=== PATIENT | female | born 1995 | race Caucasian/White ===

== ENCOUNTER 2020-07-11 23:43 | Emergency (ER) | payer MEDICAID ==
--- OUTSIDE RECORDS SUMMARY | 2020-07-11 23:45 | XMS REPORT | Summary of Care ---
:1995 Author Organization [facility] Address [address] [place] [id number] Care Team Providers Name Role Phone Pcp, Patient Does Not Have A Primary Care Provider +1-000-00 0-0000 Reason for Visit Reason Comments LAB Encounter Details Date Type Department Care Team Description 06/05/2020 Building Supplies Salesperson Retail Visit [facility] Lety Monson MD [address] [place] [address] [address] [place] [address] High-risk Professional Office 2, Adc Lab in third trimester Building Phlebotomy Lab Professional Office Building [address] [place] [address] , [address] [place] [address] Allergies No Known Allergiesdocumented as of this encounter (statuses as of 06/05/2020) Medications Medication Sig Dispensed Refills Start Date End Date Status acetaminophen (TYLENOL Take by mouth. 0 Active ORAL) aspirin 81 mg chewable Take 81 mg by 0 Active tablet mouth daily. vit Take by mouth. 0 A ctive calc,iron,folic ( VITAMIN ORAL) penicillin v potassium Take 500 mg by 0 Active 500 mg tablet mouth. documented as of this encounter (statuses as of 06/05/2020) Active Problems Problem Noted Date Obesity (BMI 30-39.9) 06/05/2020 Excessive weight gain during in third trimes ter 06/05/2020 High-risk in third trimester 06/05/2020 History of pre-eclampsia 06/05/2020 Dizziness and giddiness 06/05/2020 Estimated Date of Delivery Comments Yes 08/06/2020 Based on last menstr ual period of 10/31/2019 (Exact Date) documented as of this encounter (statuses as of 06/05/2020) Immunizations Name Administration Dates Next Due TDAP 06/05/2020 documented as of this encounter Social History Tobacco Use Types Packs/Day Years Used Date Never Smoker Smokeless Tobacco: Never Used Alcohol Use Drinks/Week oz/Week Comments Never 0 Standard drinks or equivalent Alcohol Habits Answer Date Recorded How often do you have a drink containing alcohol? Never 06/05/2020 How many drinks containing alcohol do you have on a typical Not asked 06/05/2020 day when you are drinking? How often do you have six or more drinks on one occasion? Ne rabia 06/05/2020 Estimated Date of Delivery Comments Yes 08/06/2020 Based on last menstr ual period of 10/31/2019 (Exact Date) Sex Assigned at Date Recorded Not on file COVID-19 Exposure Response Date Recorded In the last month, have you been in contact with No / Unsure 06/05/2020 2:24 PM MANAGER OF QUALITY someone who was confirmed or suspected to have Coronavirus / COVID-19? documented as of this encounter Last Filed Vital Signs Not on filedocumented in this encounter Nursing Notes Adela Quiroz - 06/05/2020 4:00 PM CST Venipuncture collection performed by clean technique on the right anticubitus. Total of 1 attempts were made. Slight pressure and a bandage/dressing were applied to the site(s). The patient experiencedno complications. The following specimens were processed according to instructions and sent to [facility] laboratories per lab order on 06/05/20: LT BLUE SST 1 RED 1 LAV 2 PPT DK GREEN (LiHep) DK GREEN (SodH) REYNOLDS DK BLUE (K2) DK BLUE (S) ACD Blood Culture NIPT/NTD Patient stated she would come in another day to do the 1 hour GTT. documented in this encounter Plan of Treatment Health Maintenance Due Date Last Done Comments VARICELLA VACCINES (1 of 2 - 1997 2-dose childhood series) HPV VACCINES (1 - 2-dose series) 2007 Depression Screening 2008 CHLAMYDIA SCREENING 2012 DTaP,Tdap,and Td Vaccines (1 - 2015 Tdap) PAP SMEAR 2017 INFLUENZA VACCINE (#1) 2020 PNEUMOCOCCAL 0-64 YEARS COMBINED Aged Out No longer eligible based on SERIES patient's age to complete this topic documented as of this encounter Results Not on filedocumented in this encounter Visit Diagnoses Diagnosis High-risk in third trimester documented in this encounter Insurance Payer Benefit Plan / Subscriber ID Effective Phone Address T ype Group Dates DUC XAVIER [id number] 2020-Pres P O BOX Medic aid [place] [id number] MANAGED MEDICAID [place], [place] documented as of this encounter
--- OUTSIDE RECORDS SUMMARY | 2020-07-11 23:45 | XMS REPORT | Summary of Care ---
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 0 Active ORAL) aspirin 81 mg chewable Take 81 mg by 0 Active tablet mouth daily. vit Take by mouth. 0 A ctive calc,iron,folic ( VITAMIN ORAL) penicillin v potassium Take 500 mg by 0 Active 500 mg tablet mouth. documented as of this encounter (statuses as of 06/12/2020) Active Problems Problem Noted Date Obesity (BMI 30-39.9) 06/05/2020 Excessive weight gain during in third trimes ter 06/05/2020 High-risk in third trimester 06/05/2020 History of pre-eclampsia 06/05/2020 Dizziness and giddiness 06/05/2020 Estimated Date of Delivery Comments Yes 08/06/2020 Based on last menstr ual period of 10/31/2019 (Exact Date) documented as of this encounter (statuses as of 06/12/2020) Immunizations Name Administration Dates Next Due Influenza Virus Vaccine Quad .5 mL IM 6+ MO 06/05/2020 Rho (d) Immune Globulin 06/05/2020 TDAP 06/05/2020 documented as of this encounter [...] been in contact with No / Unsure 06/12/2020 9:08 AM RELIGION DEPARTMENT CHAIR someone who was confirmed or suspected to have Coronavirus / COVID-19? documented as of this encounter Last Filed Vital Signs Not on filedocumented in this encounter Nursing Notes Adela Quiroz - 06/12/2020 9:15 AM CST Venipuncture collection performed by clean technique on the right anticubitus. Total of 1 attempts were made. Slight pressure and a bandage/dressing were applied to the site(s). The patient experiencedno complications. The following specimens were processed according to instructions and sent to [facility] laboratories per lab order on 06/12/20: LT BLUE SST 1 RED LAV PPT DK GREEN (LiHep) DK GREEN (SodH) REYNOLDS DK BLUE (K2) DK BLUE (S) ACD Blood Culture NIPT/NTD documented in this encounter Plan of Treatment Date Type Specialty Care Team Description 06/19/2020 Routine Obstetrics & Monson, Lety Cai MD Visit Gynecology [address] [place] [address] [address]. [place], [place] [address] Health Maintenance Due Date Last Done Comments VARICELLA VACCINES (1 of 2 - 1997 2-dose childhood series) HPV VACCINES (1 - 2-dose series) 2007 Depression Screening 2008 CHLAMYDIA SCREENING 2012 PAP SMEAR 2017 DTaP,Tdap,and Td Vaccines (2 - Td) 06/05/2030 06/05/2020 INFLUENZA VACCINE Completed 06/05/2020 PNEUMOCOCCAL 0-64 YEARS COMBINED Aged Out No longer eligible based on SERIES patient's age to complete this topic documented as of this encounter Results Not on filedocumented in this encounter Visit Diagnoses Diagnosis High-risk in third trimester documented in this encounter Insurance Payer Benefit Plan / Subscriber ID Effective Phone Address T ype Group Dates DUC XAVIER [id number] 2020-Pres P [address] BOX Medic aid [place]ALTHCARE [place] [id number] MANAGED MED[place]ID [place], [place] documented as of this encounter
--- OUTSIDE RECORDS SUMMARY | 2020-07-11 23:45 | XMS REPORT | Summary of Care ---
:1995 Author Organization [facility] Address [address] [place] [address] Care Team Providers Name Role Phone Pcp, Patient Does Not Have A Primary Care Provider +1-000-00 0-0000 Reason for Visit Reason Comments Initial Visit Transfer Encounter Details Date Type Department Care Team Description 06/05/2020 Initial [facility] Lety Monson am, MD High-risk in third trimester ( Primary Dx); Visit Healthcare- [address] [place] [address] 31 weeks g estation of ; Margarito SOOD Excessive weight gain during i n third trimester; [address] [place] [address] [address] Obesity (BMI 30-39.9); Drive, [address] [place], [place] History of pre-eclampsia; [place] [address] Dizziness and giddiness; [address] Needs flu shot; [phone] Need for Tdap v accination (Fax) Allergies No Known Allergiesdocumented as of this encounter (statuses as of 06/05/2020) Medications Medication Sig Dispensed Refills Start Date End Date Status acetaminophen Take by 0 Active (TYLENOL ORAL) mouth. aspirin 81 mg Take 81 mg 0 Activ e chewable tablet by mouth daily. vit Take by 0 Active calc,iron,folic mouth. ( VITAMIN ORAL) penicillin v Take 500 mg 0 Activ e potassium 500 mg by mouth. tablet naproxen 500 mg Take 1 60 tablet 1 10/10/2016 Dis continued tabletIndications: tablet by 0 ( ) Carotidynia, mouth 2 Menstrual cramps (two) times daily with meals. Hospital, Clinic, or Other Ordered Dose Route Frequency Start Date End Date Status Facility Administered Medication rho(D) immune globulin 300 mcg IM ONCE 06/05/20202019 Ended (RHOGAM) syringe 300 mcg documented as of this encounter (statuses as [...] 06/05/2020) Immunizations Name Administration Dates Next Due Influenza [...] with No / Unsure 06/05/2020 2:24 PM GUEST HOUSE MANAGER someone who was confirmed or suspected to have Coronavirus / COVID-19? documented as of this encounter Last Filed Vital Signs Vital Sign Reading Time Taken Comments Blood Pressure 117/72 06/05/2020 2:55 PM GUEST HOUSE MANAGER Pulse 91 06/05/2020 2:48 PM GUEST HOUSE MANAGER Temperature 36.7 C (98.1 F) 06/05/2020 2:48 PM GUEST HOUSE MANAGER Respiratory Rate 18 06/05/2020 2:48 PM GUEST HOUSE MANAGER Oxygen Saturation - - Inhaled Oxygen Concentration - - Weight 91.2 kg (201 lb) 06/05/2020 2:48 PM GUEST HOUSE MANAGER Height 160 cm (5' 3") 06/05/2020 2:48 PM GUEST HOUSE MANAGER Body Mass Index 35.61 06/05/2020 2:48 PM GUEST HOUSE MANAGER documented in this encounter Progress Notes Lety Monson MD - 06/05/2020 2:30 PM CST Chief complaint: Chief Complaint Patient presents with Initial Visit Transfer HPI [place] Nieves is a 25 year old female @ 31w1d by Patient's last menstrual period was 10/31/2019 (exact date). YANIV of 08/06/2020. Transfer care from [place] Denies vaginal bleeding, contractions, LOF, dysuria, or PIH symptoms. + active FM. Histories OB History Para Term AB Living 2 1 1 1 SAB TAB Ectopic Multiple Live Births 1 # Outcome Date GA Lbr Martínez/2nd Weight Sex Delivery Anes PTL Lv 2 Current 1 Term 11/02/17 37w0d 7 lb 4 oz (3.289 kg) F NORMAL SPONT CARLOTA Complications: PIH ( induced hypertension) Past Medical History: Diagnosis Date Asthma Family History Problem Relation Age of Onset Anxiety Mother Depression Mother Mental illness Father Lung Cancer Paternal Grandmother No family status information on file. History reviewed. No pertinent surgical history. Social History Socioeconomic History Marital status: Spouse name: Not on file Number of children: Not on file Years of education: Not on file Highest education level: Not on file Occupational History Not on file Social Needs Financial resource strain: Not on file Food insecurity Worry: Not on file Inability: Not on file Transportation needs Medical: Not on file Non-medical: Not on file Tobacco Use Smoking status: Never Smoker Smokeless tobacco: Never Used Substance and Sexual Activity Alcohol use: Never Frequency: Never Binge frequency: Never Drug use: Never Sexual activity: Yes Partners: Male Lifestyle Physical activity Days per week: Not on file Minutes per session: Not on file Stress: Not on file Relationships Social connections Talks on phone: Not on file Gets together: Not on file Attends zoroastrian service: Not on file Active member of club or organization: Not on file Attends meetings of clubs or organizations: Not on file Relationship status: Not on file Intimate partner violence Fear of current or ex partner: Not on file Emotionally abused: Not on file Physically abused: Not on file Forced sexual activity: Not on file Other Topics Concern Not on file Social History Narrative Denies physical and sexual abuse. Social History Substance and Sexual Activity Sexual Activity Yes Partners: Male Genetic Screen Autism / Mental Retardation: No Gabriele Disease: No Congenital Heart Defect: No Cystic Fibrosis: No Down Syndrome: No Familial Dysautonomia: No Hemophilia or other Blood Disorders: No [place] Chorea: No Maternal Metabolic Disorder--specify (eg. Type 1 Diabetes, PKU): No Muscular Dystrophy: No Neural Tube Defect: No Recurrent Loss or a Stillbirth: No Sickle Cell Disease or Trait: No Cristofer Sachs: No Teratological Substances (specify type & strength/dose) since LMP: No Thalassemia: No Other Inherited Genetic or Chromosomal Disorder (specify): No No Significant History of Genetic Disorders: No Significant History of Genetic Disorders Labs No new labs Radiology No new radiology. Allergies [place] has No Known Allergies. Medications [place] has a current medication list which includes the following prescription(s): acetaminophen, aspirin, penicillin v potassium, and vit calc,iron,folic. Review of Systems Constitutional: Negative for chills, fatigue and fever. HENT: Negative for congestion, rhinorrhea, sneezing and sore throat. Eyes: Negative for photophobia and visual disturbance. Respiratory: Negative for cough, chest tightness, shortness of breath and wheezing. Cardiovascular: Positive for leg swelling (1+ edema bilaterally). Negative for chest pain and palpitations. Gastrointestinal: Negative for abdominal distention, abdominal pain, constipation, diarrhea, nausea and vomiting. Genitourinary: Negative for dysuria, urgency, frequency, vaginal bleeding and vaginal discharge. Skin: Negative for rash. Neurological: Positive for dizziness (intermittent ). Negative for syncope and headaches. Hematological: Does not bruise/bleed easily. BP 117/72 (BP Location: Left arm, Patient Position: Sitting, BP CUFF SIZE: Adult Large) | Pulse 91| Temp 36.7 C (98.1 F) (Oral) | Resp 18 | Ht 5' 3" (1.6 m) | Wt 201 lb (91.2 kg) | LMP 10/31/2019 (Exact Date) | BMI 35.61 kg/m Pregravid BMI: 31.72 Physical Exam Vitals reviewed. Constitutional: She is oriented to person, place, and time. Her body habitus is obese. Cardiovascular: Regular rate and rhythm. Pulmonary/Chest: Normal inspiratory effort. Abdominal: Abdomen is soft. No tenderness present. No hernia palpated or inspected. Neuro/Psychiatric: She has a normal mood and affect. She is oriented to person, place, and time. Skin: Skin normal. No rash present. Assessment/Plan See OB Summary Return to clinic in 2 weeks. Discussed treatment options. Medications as ordered. Reviewed patient instructions and provided printed copy. Activity restrictions: As tolerated at 31w1d This visit did not involve counseling and coordination that comprised more than 50% of the visit time. Lety Monson MD 06/05/2020 3:46 PM documented in this encounter Miscellaneous Notes OB Summary Note - Lester Clinton - 06/05/2020 2:30 PM CST Age: [age] year old GA: 31w1d Doing well Received Flu and TDAP today Transfer care from [place] Records reviewed: 02/06/2020: Rubella immune; B negative with antibody negative; serologies negative; Pap neg 02/06/2020 03/05/2020 quad neg Anatomy scan WNL with posterior placenta Hemoglobin electrophoresis WNL Hx of asthma Hx of pre-eclampsia with last -Delivered @ 37 weeks with last due to PIH -On low dose ASA -BP elevated upon arrival, normal on recheck -PIH precautions given Rh negative - have not done 28 wk labs yet. Labs today and RTC for Rhogam today. - Denies hx of vaginal spotting or bleeding Dizziness - a couple of days ago - Intermittent dizziness especially when standing up. Denies syncope. Advise changing positions frequently, use compression stockings if standing for a long period, use cool packs as needed. Advise taking time between changing positions, eating regular and frequent meals, and drinking plenty of water. Denies chest pain, SOB, palpitations. Fall precautions reviewed. Excessive weight gain - TWG 22 lbs. Advise walking at least 30 minutes daily. Sensible healthy diet. -Advised patient to eat bigger meals earlier in the day and stay active and avoid eating late at night Discussed do's and don'ts of , safe foods, safe medications. Reviewed Zika virus precautions. I discussed the call schedule and that I might not be the physician delivering her. Expectationsfor weight gain this include 11-20 pounds. Encouraged to call if have any additional questions or concerns. Discussed about COVID-19/flu precautions. Social distancing, frequent hand washings, wearing face mask, signs/symptoms for testing and to follow CDC recommendations discussed. Discussed with patient that we recommend covid testing to be done ~ one day prior to scheduled induction/ and she can have one HEALTHY support with her during her delivery if she does not haveCOVID. Also discussed that she and support person need to wear mask the entire inpatient stay. Allquestions were answered. Contraception PP: patient is unsure but doesn't desire BTL 28 week labs ordered today RTC in 2 weeks for PN visit Scribe's Attestation I, Lester Clinton , am scribing for, and in the presence of, Lety Monson MD who performed the services described here-in. Lester Clinton, June 05, 2020, 2:34 PM Physician's Attestation I have seen and examined the patient and agreed with the note above Lety Monson MD 06/05/2020 3:45 PM documented in this encounter Plan of Treatment Date Type Specialty Care Team Description 06/19/2020 Routine Obstetrics & Lety Monson MD Visit Gynecology [address] [place] [address] [address] [place] [address] [phone] Name Type Priority Associated Diagnoses Order S chedule ADC OR MARU ONLY - LAB Routine High-risk in Expected: 06/05/2020, RPR third trimester Expires: CBC WITH DIFF LAB Routine High-risk in Expe cted: 06/05/2020, third trimester Expires: GLUCOSE 1 HOUR POST LAB Routine High-risk i n Expected: 06/05/2020, PRANDIAL third trimester Expires: HIV 1/2 AG-AB WITH LAB Routine High-risk in Expected: 06/05/2020, REFLEX third trimester Expires: WORKUP, BLOOD LAB Routine High-risk pregnanc y in Expected: 06/05/2020, BANK third trimester Expires: Health Maintenance Due Date Last Done Comments VARICELLA VACCINES ( - 1997 2-dose childhood series) HPV VACCINES (1 - 2-dose series) 2007 Depression Screening 2008 CHLAMYDIA SCREENING 2012 DTaP,Tdap,and Td Vaccines (1 - 2015 Tdap) PAP SMEAR 2017 INFLUENZA VACCINE (#1) 2020 PNEUMOCOCCAL 0-64 YEARS COMBINED Aged Out No longer eligible based on SERIES patient's age to complete this topic documented as of this encounter Procedures Procedure Name Priority Date/Time Associated Diagnosis Comme nts FLU VACC Routine 06/05/2020 3:45 High-risk ([id number]), 6+ PM GUEST HOUSE MANAGER in third trimest er MONTHS, IM, QUAD Needs flu shot TDAP VACCINE, >11 Routine 06/05/2020 3:45 High-risk YRS, IM PM GUEST HOUSE MANAGER in third trimest er Need for Tdap vaccination POCT URINALYSIS W/O Routine 06/05/2020 High-risk R esults for this SPECIFIC GRAVITY in third trimes ter procedure are in 31 weeks gestation the resul ts of section. documented in this encounter Results POCT URINALYSIS W/O SPECIFIC GRAVITY (06/05/2020) Pathologist Sig nature POCT PH U N/A 5 - 8 mg/dl POCT U LEUK EST N/A Negative - Negative POCT U NIT N/A Negative - Negative POCT U PROT Negative Negative - Negative POCT U GLU Trace Negative - Negative POCT U KETONE N/A Negative - Negative POCT U BLD N/A Negative - Negative Specimen Urine - URINE, CLEAN CATCH documented in this encounter Visit Diagnoses Diagnosis High-risk in third trimester - Primary 31 weeks gestation of state, incidental Excessive weight gain during i n third trimester Obesity (BMI 30-39.9) Obesity, unspecified History of pre-eclampsia Dizziness and giddiness Needs flu shot Need for prophylactic vaccination and in oculation against influenza Need for Tdap vaccination Need for prophylactic vaccination with c ombined [id number] (DTP) vaccine documented in this encounter Administered Medications Medication Order MAR Action Action Date Dose Rate Site rho(D) immune globulin Given 06/05/2020 3:55 PM 300 mcg Right Upper Quad. (RHOGAM) syringe 300 GUEST HOUSE MANAGER Glut eus mcg 300 mcg, Intramuscular, ONCE, 1 dose, Wed06/05/20 at 1700, Routine documented in this encounter Insurance Payer Benefit Plan / Subscriber ID Effective Phone Address T ype Group Dates DUC XAVIER [id number] 2020-Pres P O BOX Medic aid [place]CARE [place] [id number] MANAGED MEDICAID [place], [place] documented as of this encounter
--- OUTSIDE RECORDS SUMMARY | 2020-07-11 23:45 | XMS REPORT | Summary of Care ---
:1995 Author Organization [facility] Address [address] [place] [address] Care Team Providers Name Role Phone Pcp, Patient Does Not Have A Primary Care Provider +1-000-00 0-0000 Encounter Details Date Type Department Care Team Description 06/05/2020 Orders Only [facility] Doctor Unassigned, No [address] [facility] [place] [address] [address] [place] [address] Allergies No Known Allergiesdocumented as of this encounter (statuses as of 06/05/2020) Medications Medication Sig Dispensed Refills Start Date End Date Status naproxen 500 mg Take 1 tablet by 60 tablet 1 10/10/2016 Active tabletIndications: mouth 2 (two) Carotidynia, Menstrual times daily with cramps meals. documented as of this encounter (statuses as of 06/05/2020) Active Problems No known active problemsdocumented as of this encounter (statuses as of 06/05/2020) Social History Tobacco Use Types Packs/Day Years Used Date Never Smoker Alcohol Use Drinks/Week oz/Week Comments Not Asked 0 Standard drinks or equivalent 0.0 Sex Assigned at Date Recorded Not on file documented as of this encounter Last Filed Vital Signs Not on filedocumented in this encounter Plan of Treatment Date Type Specialty Care Team Description 06/05/2020 Initial Obstetrics & Monson, Lety Cai MD Visit Gynecology [address] [place] [address] [address] [address] [phone] Health Maintenance Due Date Last Done Comments [...] Name Priority Date/Time Associated Diagnosis Comme nts ASSIGNMENT OF BENEFITS Routine 06/05/2020 2:20 PM HAND LEATHER TRIMMER documented in this encounter Results Not on filedocumented in this encounter Insurance Payer Benefit Plan / Subscriber ID Effective Phone Address T e Group Dates XAVIER XAVIER [id number] 2020-Pres P O BOX Medic aid HEALTHCARE [place]CARE [place] [id number] MANAGED MEDICAID [place], [place] [facility] [id number] 2016-Pre T ancelmo sent documented as of this encounter
--- OUTSIDE RECORDS SUMMARY | 2020-07-11 23:45 | XMS REPORT | Summary of Care ---
:1995 Author Organization [facility] - Health Address [address] [place] [address] Care Team Providers Name Role Phone Pcp, Patient Does Not Have A Primary Care Provider +[id number] 0-0000 Encounter Details Date Type Department Care Team Description 06/17/2020 Orders Only [facility] Doctor Unassigned, No [address] [facility] [place] [address] [address] [place] [address] Allergies No Known Allergiesdocumented as of this encounter (statuses as of 06/17/2020) Medications Medication Sig Dispensed Refills Start Date End Date Status acetaminophen (TYLENOL Take by mouth. 0 Active ORAL) aspirin 81 mg chewable Take 81 mg by 0 Active tablet mouth daily. vit Take by mouth. 0 A ctive calc,iron,folic ( VITAMIN ORAL) penicillin v potassium Take 500 mg by 0 Active 500 mg tablet mouth. documented as of this encounter (statuses as of 06/17/2020) Active Problems Problem Noted Date Obesity (BMI 30-39.9) 06/05/2020 Excessive weight gain during in third trimes ter 06/05/2020 High-risk in third trimester 06/05/2020 History of pre-eclampsia 06/05/2020 Dizziness and giddiness 06/05/2020 Estimated Date of Delivery Comments Yes 08/06/2020 Based on last menstr ual period of 10/31/2019 (Exact Date) documented as of this encounter (statuses as of 06/17/2020) Immunizations Name Administration Dates Next Due Influenza [...] with No / Unsure 06/12/2020 9:08 AM CHASSIS WIRER someone who was confirmed or suspected to have Coronavirus / COVID-19? documented as of this encounter Last Filed Vital Signs Not on filedocumented in this encounter Plan of Treatment Date Type Specialty Care Team Description 06/19/2020 Routine Obstetrics & Monson, Lety Cai MD Visit Gynecology [address] [place] [address] DR. Garcia [place] [id number] [phone] Health Maintenance Due Date Last Done Comments [...] Name Priority Date/Time Associated Diagnosis Comme nts EXTERNAL PROVIDER Routine 06/17/2020 12:01 AM CHASSIS WIRER RECORDS documented in this encounter Results Not on filedocumented in this encounter Insurance Payer Benefit Plan / Subscriber ID Effective Phone Address T ype Group Dates DUC XAVIER [id number] 2020-Pres [address] Medic aid [employer] - [place]ARE [place] [id number] MANAGED MEDICAID [place], [place] [facility] [id number] 2016-Pre T ricare sent documented as of this encounter
--- OUTSIDE RECORDS SUMMARY | 2020-07-11 23:46 | XMS REPORT | Summary of Care ---
:1995 Author Organization [facility] - Health Address [address] [place] [address] Care Team Providers Name Role Phone Pcp, Patient Does Not Have A Primary Care Provider +[phone] 0-0000 Encounter Details Date Type Department Care Team Description 07/03/2020 Orders Only [facility] Doctor Unassigned, No [address] [facility] [place] [address] [address] [place] [address] Allergies No Known Allergiesdocumented as of this encounter (statuses as of 07/08/2020) Medications Medication Sig Dispensed Refills Start Date End Date Status acetaminophen (TYLENOL Take by mouth. 0 Active ORAL) aspirin 81 mg chewable Take 81 mg by 0 Active tablet mouth daily. vit Take by mouth. 0 A ctive calc,iron,folic ( VITAMIN ORAL) penicillin v potassium Take 500 mg by 0 Active 500 mg tablet mouth. documented as of this encounter (statuses as of 07/08/2020) Active Problems Problem Noted Date Palpitations 06/19/2020 Obesity (BMI 30-39.9) 06/05/2020 Excessive weight gain during in third trimes ter 06/05/2020 High-risk in third trimester 06/05/2020 History of pre-eclampsia 06/05/2020 Dizziness and giddiness 06/05/2020 Estimated Date of Delivery Comments Yes 08/06/2020 Based on last menstr ual period of 10/31/2019 (Exact Date) documented as of this encounter (statuses as of 07/08/2020) Immunizations Name Administration Dates Next Due Influenza [...] been in contact with No / Unsure 07/03/2020 12:54 PM REGISTERED DENTAL HYGIENIST someone who was confirmed or suspected to have Coronavirus / COVID-19? documented as of this encounter Last Filed Vital Signs Not on filedocumented in this encounter Plan of Treatment Date Type Specialty Care Team Description 07/08/2020 Office Visit Cardiology Anabel Starkey M D [address] [facility] [address] [place], [place] [address] 07/17/2020 Routine Obstetrics & MonsonLety MD Visit Gynecology [address] [place] [address] DRRichar Wilfredo [address] [place], [place] [address] Health Maintenance Due Date Last Done Comments VARICELLA VACCINES (1 of 2 - 1997 2-dose childhood series) HPV VACCINES (1 - 2-dose series) 2007 Depression Screening 2008 PAP SMEAR 2017 CHLAMYDIA SCREENING 07/03/2021 07/03/2020 DTaP,Tdap,and Td Vaccines (2 - Td) 06/05/2030 06/05/2020 INFLUENZA VACCINE Completed 06/05/2020 PNEUMOCOCCAL 0-64 YEARS COMBINED Aged Out No longer eligible based on SERIES patient's age to complete this topic documented as of this encounter Procedures Procedure Name Priority Date/Time Associated Diagnosis Comme nts DSU PRE-OP Routine 07/03/2020 12:01 AM REGISTERED DENTAL HYGIENIST documented in this encounter Results Not on filedocumented in this encounter Insurance Payer Benefit Plan / Subscriber ID Effective Phone Address T [facility] Group Dates DUC XAVIER [id number] 2020-Pres [address] Medic aid [place] [id number] MANAGED MEDICAID [place], [place] documented as of this encounter
--- OUTSIDE RECORDS SUMMARY | 2020-07-11 23:46 | XMS REPORT | Continuity of Care Document ---
:1995 Author Organization [facility] t Address [address] [place] [address] Care Team Providers Name Role Phone Lalito TEIXEIRA Attending Clinician Problems This patient has no known problems. Allergies, Adverse Reactions, Alerts This patient has no known allergies or adverse reactions. Medications This patient has no known medications. Procedures This patient has no known procedures. Encounters Start End Encounter Admission Attending Care Care Encounter Source Date/Time Date/Time Type Type Clinicians Facility Department ID 2020-07-08 2020-07-08 Office PEG Starkey [id number] 13:21:11 13:56:00 Visit Anabel Pimentel [id number] [place] [id number] Cindi [id number] nal 059 Building Results This patient has no known results.
--- OUTSIDE RECORDS SUMMARY | 2020-07-11 23:46 | XMS REPORT | Summary of Care ---
:1995 Author Organization [facility] Address [address] [place] [address] Care Team Providers Name Role Phone Pcp, Patient Does Not Have A Primary Care Provider +[id number] 0-0000 Reason for Referral (Routine) Status Reason Specialty Diagnoses / Referred By Referred To Procedures Contact Contact New Request Cardiology Diagnoses High-risk in third trimester 33 weeks gestation of Palpitations Dizziness and giddiness Lety Monson MD Procedures CONSULT/REFERRAL CARDIOLOGY [address] [place] [address] [facility] [address] [place], [place] [address] Reason for Visit Reason Comments ROUTINE VISIT Encounter Details Date Type Department Care Team Description 06/19/[address] [facility] Women's Lety Monson am, MD High-risk in third trimester ( Primary Dx); Visit Healthcare- [address] [place] [address] 33 weeks g estation of ; [place] Palpitations; [address] [place] [address], [address] [place], [place] [id number] Allergies No Known Allergiesdocumented as of this encounter (statuses as of 06/19/2020) Medications Medication Sig Dispensed Refills Start Date End Date Status acetaminophen (TYLENOL Take by mouth. 0 Active ORAL) aspirin 81 mg chewable Take 81 mg by 0 Active tablet mouth daily. vit Take by mouth. 0 A ctive calc,iron,folic ( VITAMIN ORAL) penicillin v potassium Take 500 mg by 0 Active 500 mg tablet mouth. documented as of this encounter (statuses as of 06/19/2020) Active Problems Problem Noted Date Palpitations 06/19/2020 Obesity (BMI 30-39.9) 06/05/2020 Excessive weight gain during in third trimes ter 06/05/2020 High-risk in third trimester 06/05/2020 History of pre-eclampsia 06/05/2020 Dizziness and giddiness 06/05/2020 Estimated Date of Delivery Comments Yes 08/06/2020 Based on last menstr ual period of 10/31/2019 (Exact Date) documented as of this encounter (statuses as of 06/19/2020) Immunizations Name Administration Dates Next Due Influenza [...] been in contact with No / Unsure 06/19/2020 9:21 AM 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 documented as of this encounter Last Filed Vital Signs Vital Sign Reading Time Taken Comments Blood Pressure 137/79 06/19/2020 9:41 AM CERTIFIED OPHTHALMIC TECHNICIAN Pulse 90 06/19/2020 9:41 AM CERTIFIED OPHTHALMIC TECHNICIAN Temperature 36.9 C (98.4 F) 06/19/2020 9:41 AM CERTIFIED OPHTHALMIC TECHNICIAN Respiratory Rate 16 06/19/2020 9:41 AM CERTIFIED OPHTHALMIC TECHNICIAN Oxygen Saturation - - Inhaled Oxygen Concentration - - Weight 92.7 kg (204 lb 6.4 oz) 06/19/2020 9:41 AM CERTIFIED OPHTHALMIC TECHNICIAN Height 160 cm (5' 3") 06/19/2020 9:41 AM CERTIFIED OPHTHALMIC TECHNICIAN Body Mass Index 36.21 06/19/2020 9:41 AM CERTIFIED OPHTHALMIC TECHNICIAN documented in this encounter Patient Instructions Patient InstructionsIzabella Milligan MA - 06/19/2020 9:30 AM CST Patient Education Kick Counts Its normal to worry about your babys health. One way you can knowyour babys doing well isto record the babys movements once a day. This is called a kick count. Remember to take your kick count records to all your appointments with your healthcare provider. How to count kicks Time how long it takes you to feel 10 kicks, flutters, swishes, or rolls. Ideally, you want to feel at least 10 movements in 2 hours. You will likely feel 10 movements in less time than that. Starting at 28 weeks, count your baby's movements daily. Follow your healthcare provider's instructions for kick counting. Here are tips for counting kicks: Choose a time when the baby is active, such as after a meal. Sit comfortably or lie on your side. The first time the baby moves,write downthe time. Count each movement until the baby has moved 10times. This can take from 20 minutes to 2hours. If you haven't felt 10 kicks by the end of the second hour, wait a few hours. Then try again. Try to do it at the same time each day. When to call your healthcare provider Call your healthcare provider right awayif: You do a couple sets of kick counts during the day and your baby moves fewer than 10times [id number]. Your baby moves much less often than on thedays before. You haven't felt your baby move all day. CX last reviewed this educational content on 02/10/202019993599-5026 [employer]. All rights reserved. This information is not intended as a substitute for professional medical care. Always follow your healthcare professional's instructions. Patient Education Influenza (Flu) and Influenza (the flu) is an infection of the respiratory tract. The tract ismade up of yourmouth, nose, and lungs, and the tubes between them. The flu can make a woman very ill. This is because changes that occur during to the immune system, heart, and lungs make a woman more likely to develop flu complications. These include sinus infections and serious lung infections such as bronchitis and pneumonia. The flu can cause high fevers, which can cause defects and other complications in the developing fetus. In rare cases, the flu can lead to miscarriage or even of the mother. This sheet tells you more about the flu, what to do if you get the flu, and what you can do to prevent infection. Washing your hands often with soap and water can help keep you from catching the flu virus. Who is at risk for the flu? Anyone can get the flu. But you are more likely to catch the flu if you: Are often around young children Work in a healthcare setting where you may be exposed to flu germs Live or work with someone who has the flu Havent had the annual flu shot How does the flu spread? The flu is caused by a virus. The virus spreads through the air in droplets when someone who has theflu coughs, sneezes, laughs, or talks. You can become infected when you breathe in the virus directly. You can also become infected when you touch a surface where the droplets have landed and then touch your eyes, nose, or mouth. Touching used tissues, or sharing utensils, drinking glasses, or a toothbrush with an infected person can expose you to the flu virus, too. What are the symptoms of the flu? Flu symptoms tend to start quickly and may last a few days to a few weeks. They include: Fever that's usually higher than 100.4F ( 38C) and chills Sore throat and headache Dry cough Runny nose Tiredness and weakness Body and muscle aches If you are and have flu-like symptoms Call your healthcare provider right away. Follow any instructions they give you. You may be asked toget tested to confirm that you have the flu. Your healthcare provider may prescribe medicines called antivirals. These medicines must be taken within 2 days of when your symptoms started. In some cases, your healthcare provider may not wait for test results to come back before starting you on antivirals. These medicines work by stopping the flu virus from reproducing in your body. This gives your bodys immune system a chance to fight the virus. After taking the medicine, your symptoms may be milder and you may recover quicker than without the medicine. The medicine may also prevent serious complications such as pneumonia. Antivirals are considered safe during , but talk with your healthcare provider if you have any concerns. Easing flu symptoms Drink lots of fluids such aswater, juice, and warm soup to prevent dehydration. A good rule is to drink enough so that you urinate your normal amount. Feeling dizzy or lightheaded most likely means you need to drink more fluid. Get plenty of rest. If you aren't hungry, eat smaller meals more often during the day to make sure you get enough calories. If you don't have a fever, put warm compresses onyour forehead or sinuses to ease congestion. If you need medicines to ease symptoms, ask your healthcare provider which ones are safe for you to take. Call your healthcare provider if you become short of breath. Preventing the flu Get vaccinated. One of the best ways to prevent the flu is to get a flu shot. women can safely get a flu shot. But women should not get the nasal spray vaccine for the flu. This jair live-virus vaccine and maybe harmful to the baby. Wash your hands often.Frequent handwashing is a proven way to prevent infection. Carry an alcohol-based hand gel that has at least 60% alcohol. Use it when you dont have access to soap and water. Clean items you use oftenwith disinfectant wipes. This includes phones, computer keyboards, andtoys. Stay away from crowds and children as much as possible while you are . Stay away fromanyone who has the flu. Tips for good handwashing Handwashing is one of the best ways to prevent many common infections. Follow these steps for more effective handwashing: Use warm water and plenty of soap. Work up a good lather. Clean the whole hand, under your nails, between your fingers, and up the wrists. Wash for at least 20seconds. Dont just wipescrub well. Rinse, letting the water run down your fingers, not up your wrists. Dry your hands well. Use a paper towel to turn off the faucet and open the door. Using alcohol-based hand gel Alcohol-based hand gels are also a good choice for cleaning your hands. Use them when you dont have access to soap and water. Follow these steps: Squeeze about a tablespoon of gel into the palm of one hand. Rub your hands together briskly, cleaning the backs of your hands, the palms, between your fingers, and up the wrists. Rub until the gel is gone and your hands are completely dry. Collette last reviewed this educational content on 02/10/202019995276-1361 [employer]. All rights reserved. This information is not intended as a substitute for professional medical care. Always follow your healthcare professional's instructions. Patient Education Comfort Tips During can bring discomfort of different kinds. Below are tips for ways to feel better.Talk with yourhealthcare provider before using pain-relieving medicine at any time during your . First trimester tips Easing nausea Get up slowly. Eat a few unsalted crackers before you get out of bed. Avoid smells that bother you. Eat small,bland, low-fat, high-protein meals at frequent intervals. Sip on water, weaktea, or clear soft drinks, like landon maribel.Eat ice chips. Try taking vitamin B6. Coping with fatigue Take catnaps when you can. Get regular exercise. Accept help from others. Practice good sleep habits, like going to bed and getting up at the same time each day. Use your bed only for sleep and sex. Calming mood swings Talk about your feelings with others, including other mothers. Limit sugar, chocolate, and caffeine. Eat a healthy diet. Dont skip meals. Get regular exercise. Soothing headaches Get fresh air and exercise. Relax and get enough rest. Check with your healthcare provider before taking any pain medicines. Second trimester tips To limit ankle swelling, sit with your feet raised or wear support hose. If you have pain in your groin and stomach(round ligament pain), don't make sudden twisting movements with your body. For leg cramps, flexing your foot often brings immediate relief. Also try massaging your calf in long, downward strokes, or stretching your legs before going to bed. Get enough exercise and wear shoes with flexible soles. Eat foods rich in calcium. Third trimester tips Reducing heartburn Eat small, light meals throughout the day rather than 3 large ones. Sleep with your upper body raised 6 inches. Dont lie down until 2 hours after you eat. Don't eat greasy, fried, or spicy foods. Don't have citrus fruits or juices. Treating constipation Eat foods high in fiber, such as whole-grain foods, and fresh fruit and vegetables). Drink plenty of water. Get regular exercise. Ask about your healthcare provider about medicines that have docusate or psyllium. Taking care of your breasts Don't use harsh soaps or alcohol, which can make your skin too dry. Wear nursing bras. They provide more support than regular bras and can be used after ifyou breastfeed. Getting a good nights sleep Take a warm shower before bed. Sleep on a firm mattress. Lie on your side with 1 leg crossed over the other. Use pillows to support your arms, legs, and belly. CX last reviewed this educational content on 02/10/202019996735-6858 [employer]. All rights reserved. This information is not intended as a substitute for professional medical care. Always follow your healthcare professional's instructions. Patient Education : Your Third Trimester Changes As the baby grows, your body changes too. You may also see signs that your body is getting ready forlabor. Be patient. Within a few more weeks, your baby will be born. How you are changing Your body is preparing for the of your baby. Some of the most common changes are listed below.If you have any questions or concerns, ask your healthcare provider: Youll gain more weight from fluids, extra blood, and fat deposits. Your breasts will grow as your body gets ready to feed the baby. They may be more tender. You mayalso notice a slight yellow or white discharge from the nipples. Discharge from your vagina may increase. This is normal. You might see some skin color changes on your forehead, cheeks, or nose. Most of these will go away after you deliver. How your baby is growing Month 7 Your babycan open and close his or her eyes andweighs around 4 pounds (1.8 kg).If born prematurely (too early), your baby would likely survive with special care. Month 8 Your baby is building up body fat andweighs around 6 pounds (2.7 kg). Month 9 Your baby weighs nearly 7 pounds (3.2 kg)and is about 19 to 21 inches long. In other words, any day now... CX last reviewed this educational content on 08/12/201719995756-5716 [employer]. All rights reserved. This information is not intended as a substitute for professional medical care. Always follow your healthcare professional's instructions. IFIED OPHTHALMIC TECHNICIAN documented in this encounter Progress Notes Lety Monson MD - 06/19/2020 9:30 AM CST ROUTINE VISIT 06/19/2020 9:33 AM SUBJECTIVE Brooklyn Nieves is a 25 year old at 33w1d who presents for routine visit. She has complaints of palpitations today; denies contractions, loss of fluid, vaginal bleeding, and signs or symptoms of pre-eclampsia. Good movement. OBJECTIVE BP 137/79 (BP Location: Left arm, Patient Position: Sitting, BP CUFF SIZE: Adult Large) | Pulse 90| Temp 36.9 C (98.4 F) (Oral) | Resp 16 | Ht 5' 3" (1.6 m) | Wt 204 lb 6.4 oz (92.7 kg) | LMP 10/31/2019 (Exact Date) | BMI 36.21 kg/m FH: 34 cm FHT: 156 Physical Exam: Gen: A&Ox3, NAD CV: RRR Pulm: CTAB Abd: Soft, gravid, NTTP, no rebound or guarding Ext: No calf tenderness ASSESSMENT: Brooklyn Nieves is a 25 year old at 33w1d who presents for routine visit. PLAN See OB Summary RTC in 2 weeks for PN visit Scribe's Attestation Lester Steward am scribing for, and in the presence of, Lety Monson MD who performed the services described here-in. Lester Clinton, June 19, 2020, 9:33 AM Physician's Attestation I have seen and examined the patient and agreed with the note above Lety Monson MD 06/19/2020 10:01 AM documented in this encounter Miscellaneous Notes OB Summary Note - Lester Clinton - 06/19/2020 9:30 AM CST Age: [age] year old GA: 33w1d Doing well, Patient reports she feels her heart racing more often lately. Patient reports she's not doing anything when she feels her heart racing. Patient says her pulse at this time was 109 -Advised patient these are palpitations and a EKG will be ordered with cardiology referral. Patient desires elective induction @ 39 weeks unless clinically indicated otherwise Discussed the process of induction with includes cervical ripening, AROM, and pitocin with the patient and answered all questions. Discussed about risks of failed induction that can lead to and risks associated with including pain, bleeding, infection, injury to surrounding organs, need for repeat with future pregnancies, risks of abnormal placentation with future pregnancies. Patient understands and desires to proceed with induction. Patient has been scheduled for induction on 07/30/2019 at 39 weeks unless clinically indicated otherwise. Hx of asthma Hx of pre-eclampsia with last -On low dose ASA -BP within normal range today -PIH precautions given Rh negative Rhogam received 06/05/2020 Patient reports using OCPs when she was 17 denies any issues Contraception PP: OCPs Daily kick counts RTC in 2 weeks for PN visit Scribe's Attestation Lester Steward , alessandro scribing for, and in the presence of, Lety Monson MD who performed the services described here-in. Lester Clinton, June 19, 2020, 9:32 AM Physician's Attestation I have seen and examined the patient and agreed with the note above Lety Monson MD 06/19/2020 10:01 AM documented in this encounter Plan of Treatment Date Type Specialty Care Team Description 07/03/2020 Routine Obstetrics & Lety Monson MD Visit Gynecology [address] [place] [address] [address]. [address] [place], [place] [address] [phone] Name Type Priority Associated Diagnoses Order S chedule CBC WITH DIFF LAB Routine High-risk Expecte d: in third trimester 0, Expires: 09/17/2020 GROUP B STREPTOCOCCUS BY LAB Routine High-risk pregna ncy Expected: PCR in third trimester 0, Expires: 06/19/2021 GC & CHLAMYDIA AMPLIFIED LAB Routine High-risk pregna ncy Expected: ASSAY in third trimester 0, Expires: 06/19/2021 TRICHOMONAS AMPLIFIED LAB Routine High-risk Expected: ASSAY in third trimester 0, Expires: 09/17/2020 EKG-12 LEAD ROUTINE HEART STATION Routine High-risk Ordered: in third trimest er 06/19/2020 33 weeks gestation of Palpitations Dizziness and giddiness Health Maintenance Due Date Last Done Comments [...] encounter Procedures Procedure Name Priority Date/Time Associated Comments Diagnosis POCT URINALYSIS W/O Routine 06/19/2020 9:43 AM High-risk preg shahida Results for this SPECIFIC GRAVITY CERTIFIED OPHTHALMIC TECHNICIAN in third trimes ter procedure are in 33 weeks gestation the resul ts of section. documented in this encounter Results POCT URINALYSIS W/O SPECIFIC GRAVITY (06/19/2020 9:43 AM CERTIFIED OPHTHALMIC TECHNICIAN) Pathologist Sig nature POCT PH U n/a 5 - 8 mg/dl POCT U LEUK EST n/a Negative - Negative POCT U NIT n/a Negative - Negative POCT U PROT neg Negative - Negative POCT U GLU neg Negative - Negative POCT U KETONE n/a Negative - Negative POCT U BLD n/a Negative - Negative Specimen Urine - URINE, CLEAN CATCH documented in this encounter Visit Diagnoses Diagnosis High-risk in third trimester - Primary 33 weeks gestation of state, incidental Palpitations Dizziness and giddiness documented in this encounter Insurance Payer Benefit Plan / Subscriber ID Effective Phone Address T ype Group Dates DUC XAVIER [id number] 2020-Pres [address] Medic aid [place]ALTHC[place] - [place]CARE [place] [id number] MANAGED MEDICAID [place], [place]ICA[place] documented as of this encounter
--- OUTSIDE RECORDS SUMMARY | 2020-07-11 23:46 | XMS REPORT | Summary of Care ---
:1995 Author Organization [facility] Address [address] [place] [address] Care Team Providers Name Role Phone Pcp, Patient Does Not Have A Primary Care Provider +[id number] 0-0000 Reason for Visit Reason Comments LAB Encounter Details Date Type Department Care Team Description 07/03/2020 Supervisor [place] Visit [facility] Lety Monson MD [address] [place] [address] [address] [place] [address] High-risk Professional Office 2, Adc Lab in third trimester Building Phlebotomy Lab Professional Office Building [address] [place] [address] , [address] [place] [address] Allergies No Known Allergiesdocumented as of this encounter (statuses as of 07/03/2020) Medications Medication Sig Dispensed Refills Start Date End Date Status acetaminophen (TYLENOL Take by mouth. 0 Active ORAL) aspirin 81 mg chewable Take 81 mg by 0 Active tablet mouth daily. vit Take by mouth. 0 A ctive calc,iron,folic ( VITAMIN ORAL) penicillin v potassium Take 500 mg by 0 Active 500 mg tablet mouth. 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 documented as of this encounter Last Filed Vital Signs Not on filedocumented in this encounter Nursing Notes Adela Quiroz - 07/03/2020 2:45 PM CST Venipuncture collection performed by clean technique on the right anticubitus. Total of 1 attempts were made. Slight pressure and a bandage/dressing were applied to the site(s). The patient experiencedno complications. The following specimens were processed according to instructions and sent to [facility] laboratories per lab order on 07/03/20: LT BLUE SST RED LAV 1 PPT DK GREEN (LiHep) DK GREEN (SodH) REYNOLDS DK BLUE (K2) DK BLUE (S) ACD Blood Culture NIPT/NTD documented in this encounter Plan of Treatment Date Type Specialty Care Team Description 07/08/2020 Office Visit Cardiology Anabel Starkey M D [address] [place] [address] [address] [place], [place] [address] [phone] 07/17/2020 Routine Obstetrics & Monson, Lety Cai MD Visit Gynecology [address] [place] [address] [address] [place], [place] [address] [phone] Health Maintenance Due Date Last Done Comments [...] Address T ype Group Dates DUC XAVIER [id number] 2020-Pres [address] BOX Medic aid [place] [id number] MANAGED MEDICAID [place], [place] documented as of this encounter
--- OUTSIDE RECORDS SUMMARY | 2020-07-11 23:46 | XMS REPORT | Summary of Care ---
:1995 Author Organization [facility] Address [address] [place] [address] Care Team Providers Name Role Phone Pcp, Patient Does Not Have A Primary Care Provider +[id number] 0-0000 Reason for Visit Reason Comments ROUTINE VISIT Encounter Details Date Type Department Care Team Description 07/03/2020 Routine [facility] Women's Lety Monson am, MD High-risk in third trimester ( Primary Dx); Visit Healthcare- [address] [place] [address] 35 weeks g estation of [place] [address] [place] [address] [address], [address] [place] [id number] Allergies No Known Allergiesdocumented as of this [...] with No / Unsure 07/03/2020 12:54 PM 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 documented as of this encounter Last Filed Vital Signs Vital Sign Reading Time Taken Comments Blood Pressure 132/79 07/03/2020 1:30 PM CHILD DAY CARE TEACHER Pulse 93 07/03/2020 1:30 PM CHILD DAY CARE TEACHER Temperature 36.8 C (98.2 F) 07/03/2020 1:30 PM CHILD DAY CARE TEACHER Respiratory Rate 16 07/03/2020 1:30 PM CHILD DAY CARE TEACHER Oxygen Saturation - - Inhaled Oxygen Concentration - - Weight 94.3 kg (208 lb) 07/03/2020 1:30 PM CHILD DAY CARE TEACHER Height 160 cm (5' 3") 07/03/2020 1:30 PM CHILD DAY CARE TEACHER Body Mass Index 36.85 07/03/2020 1:30 PM CHILD DAY CARE TEACHER documented in this encounter Patient Instructions Patient InstructionsIzabella Milligan MA - 07/03/2020 1:00 PM CST Patient Education Kick Counts Its normal [...] and your baby moves fewer than 10times [id number]. Your baby moves much less often than on thedays before. You haven't felt your baby move all day. Pick[employer] last reviewed this educational content on 02/10/202019992411-6453 [employer]. All rights reserved. This information is not [...] gone and your hands are completely dry. Pick[employer] last reviewed this educational content on 02/10/202019998384-6141 [employer]. All rights reserved. This information is not intended as a substitute for professional medical care. Always follow your healthcare professional's instructions. Patient Education Recognizing Labor The beginning of labor is the beginning of . Youll start to feel strong contractions. Thats when the muscles of your uterus tighten up to help push your baby out during . Yes, labor has likely started Signs of labor include: Your contractions are getting stronger and more painful instead of weaker. Youll likely feel them throughout your whole uterus. Your contractions are regular. This means that you feel them about every 5 to 10 minutes. And they are getting closer together. You have pink-colored or blood-streaked fluid from your vagina. You feel that the baby has "dropped" lower in your pelvis Your water breaks. It may be a gush or a slow trickle of clear fluid from your vagina. No, its likely not real labor Signs of false labor include: Your contractions arent regular or strong. You feel the contractions only in your lower uterus. Your contractions go away when you walk or change position. Your contractions go away after drinking fluids. When to call your healthcare provider Call your healthcare provider or clinic right away if you notice any of these signs: Fluid from your vagina, with or without contractions. Bleeding heavy enough that you need a sanitary pad. You dont feel your baby moving as much as before. Note: Contractions are timed by both of these measures: The length of each contraction from its start to its finish. How far apart the contractions arethe time between the start of one contraction and the start of the next contraction. Pick[employer] last reviewed this educational content on 02/10/202019998529-7502 [employer]. All rights reserved. This information is not intended as a substitute for professional medical care. Always follow your healthcare professional's instructions. Patient Education What Is Group B Strep? Group B strep (streptococcus) is a common type of bacteria. It can grow in a womans vagina, rectum, or urinary tract. It most often does not cause harm in adults. But in rare cases, a woman who has group B strep can infect her baby during the . This can cause serious illness in the . But treating the mother during labor reduces the risk of the baby becoming infected. And if a gets group B strep, the infection can be treated. Facts about group B strep Learning more about group B strep can help you understand how testing and treatment can help. Here are some basic facts about group B strep: It is not a sexually transmitted disease. It is not the same as strep throat. (That is caused by group A strep.) It often has no symptoms. It may cause no problems in adults. Test results can be misleading. They may be positive one week and negative the next week. Group B strep can be spread to the baby during vaginal delivery. It cannot be passed during (surgical) . A mother with group B strep rarely infects her . (Infection happens only about 1% to 2% ofthe time.) When a mother is treated during labor and delivery, her baby almost never becomes infected. Certain factors during increase the risk of a baby becoming infected. Possible effects on your baby Group B strep can infect the blood. It can also cause inflammation of the babys lungs, brain, or spinal cord. Long-term effects can include blindness, deafness, mental retardation, or cerebral palsy. And in rare cases, infection causes . Infection is most often found soon after the baby is born. How your baby may become infected Group B strep often lives in the vagina or rectum. If the amniotic sac breaks early, bacteria from the vagina can travel to the uterus, reaching the baby. Or, as the baby passes through the canal, it can come in contact with the bacteria. In rare cases, group B strep can be passed to the baby after delivery. This is calledlate-onsetgroup B strep.The source of this type of infection is notwell understood. But some expertsbelieve that it happens if the baby is exposed to group B strep in the home, fromthe parents or siblings, or in the community. What increases the risk? Certain risk factors increase the chance that a baby will be infected. They include: Breaking or leaking of the amniotic sac before 37 weeks of Labor before 37 weeks of Breaking of the amniotic sac more than 18 hours before labor starts Fever during labor A urinary tract infection with group B strep at any point in the Having a previous baby born with a group B strep infection Pick1 last reviewed this educational content on 07/12/201919995125-0875 [employer]. All rights reserved. This information is not [...] to support your arms, legs, and belly. Pick1 last reviewed this educational content on 02/10/202019997254-2940 [employer]. All rights reserved. This information is not intended as a substitute for professional medical care. Always follow your healthcare professional's instructions. D DAY CARE TEACHER documented in this encounter Progress Notes Lety Monson MD - 07/03/2020 1:00 PM CST ROUTINE VISIT 07/03/2020 1:08 PM SUBJECTIVE Brooklyn Nieves is a 25 year old at 35w1d who presents for routine visit. She has complaints of jose elias reddy contractions today; denies loss of fluid, vaginal bleeding, and signs or symptoms of pre-eclampsia. Good movement. OBJECTIVE BP 132/79 (BP Location: Left arm, Patient Position: Sitting, BP CUFF SIZE: Adult Medium) | Pulse 93 | Temp 36.8 C (98.2 F) (Oral) | Resp 16 | Ht 5' 3" (1.6 m) | Wt 208 lb (94.3 kg) | LMP 10/31/2019 (Exact Date) FH: 36 FHT: 158 Physical Exam: Gen: A&Ox3, NAD CV: RRR Pulm: CTAB Abd: Soft, gravid, NTTP, no rebound or guarding Ext: No calf tenderness : SVE cl/th/high ASSESSMENT: Brooklyn Nieves is a 25 year old at 35w1d who presents for routine visit. PLAN See OB Summary RTC in 2 weeks for PN visit Scribe's Attestation Lester Steward am scribing for, and in the presence of, Lety Monson MD who performed the services described here-in. Lester Clinton, July 03, 2020, 1:08 PM Physician's Attestation I have seen and examined the patient and agreed with the note above Lety Monson MD 07/03/2020 1:44 PM documented in this encounter Miscellaneous Notes OB Summary Note - Lester Clinton - 07/03/2020 1:00 PM CST Age: [age] year old GA: 35w1d Doing well, no complaints Patient reports having a lot of [place] - SVE cl/th/high - labor precautions given Palpitations - EKG and cardiology referrals placed on 06/19/2020, not scheduled yet. Will follow-up Elective induction @ 39 weeks unless clinically indicated otherwise on 07/30/2020 Hx of asthma Hx of pre-eclampsia with last -On low dose ASA -BP WNL today -PIH precautions given RH neg Rhogam received 06/05/[address] Monson talked about at your 36 week talk: 1. Go to Labor and Delivery when your contractions are 5-7 minutes apart and you have been able to time them for an hour. If you live more than 30 minutes from the hospital, then go when they are 10 minutes apart and you have been able to time them for an hour. 2. BUT, there are 4 reasons to go to Labor and Delivery REGARDLESS of what else is happening, whether you are lulú or not: 1. If your water breaks - - - it may be a gush or a constant trickle. If you are not sure, always come in to be checked. 2. Bleeding like your period. 3. If your baby's movements are less than 10 in an hour. If you are concerned this might be the case, drink a tall glass of cold fluids, lay down on your side on the couch or your bed and see how long it takes to note 10 movements - if less than 10, this needs to be evaluated immediately. 4. Contractions or Pain that is continuous. Normal labor contractions last only 45 seconds - 1 minute. Cephalic presentation GC/CT and GBS obtained, CBC ordered Zika precautions reviewed Contraception PP: OCPs Delivery consent signed today 07/03/2020 RTC in 2 wks for PN Daily kick counts Scribe's Attestation Lester Steward , am scribing for, and in the presence of, Lety Monson MD who performed the services described here-in. Lester Clinton, July 03, 2020, 1:11 PM Physician's Attestation I have seen and examined the patient and agreed with the note above Lety Monson MD 07/03/2020 1:42 PM documented in this encounter Plan of Treatment Date Type Specialty Care Team Description 07/17/2020 Routine Obstetrics & Lety Monson MD Visit Gynecology [address] [place] [address] [address]. 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 POCT URINALYSIS W/O Routine 07/03/2020 1:31 PM High-risk preg shahida Results for this SPECIFIC GRAVITY CHILD DAY CARE TEACHER in third trimes ter procedure are in 35 weeks gestation the resul ts of section. documented in this encounter Results >14 WEEKS US LIMITED (07/03/2020 1:41 PM CHILD DAY CARE TEACHER) Specimen Narrative Performed At This result has an attachment that is no t available. Limited USG for presentation: Cephalic PACS Lety Monson MD 07/03/2020 1:41 PM Performing Organization Address City/State/Zipcode Phone Number PACS POCT URINALYSIS W/O SPECIFIC GRAVITY (07/03/2020 1:31 PM CHILD DAY CARE TEACHER) Pathologist Sig nature POCT PH U n/a 5 - 8 mg/dl POCT U LEUK EST n/a Negative - Negative POCT U NIT n/a Negative - Negative POCT U PROT trace Negative - Negative POCT U GLU neg Negative - Negative POCT U KETONE n/a Negative - Negative POCT U BLD n/a Negative - Negative Specimen Urine - URINE, CLEAN CATCH documented in this encounter Visit Diagnoses Diagnosis High-risk in third trimester - Primary 35 weeks gestation of state, incidental documented in this encounter Insurance Payer Benefit Plan / Subscriber ID Effective Phone Address T ype Group Dates DUC XAVIER [id number] 2020-Pres P O BOX Medic aid [place] [id number] MANAGED MEDICAID [place], [place] documented as of this encounter
--- OUTSIDE RECORDS SUMMARY | 2020-07-11 23:46 | XMS REPORT | Summary of Care ---
:1995 Author Organization [facility] Address [address] [place] [address] Care Team Providers Name Role Phone Pcp, Patient Does Not Have A Primary Care Provider +1-000-00 0-0000 Reason for Visit Reason Comments New Medication Encounter Details Date Type Department Care Team Description 07/08/2020 Case Management [facility] Women's Monson, Lety lopez MD New Medication Healthcare- [address], [address] [place] [address] [place] [address] [phone] Allergies No Known Allergiesdocumented as of this [...] by 0 Active 500 mg tablet mouth. ferrous sulfate (IRON, Take 1 tablet by 60 tablet 0 07/08/2020 Active FERROUS SULFATE,) 325 mg mouth 2 (two) (65 mg iron) times daily. 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 documented as of this encounter Last Filed Vital Signs Not on filedocumented in this encounter Plan of Treatment Date Type Specialty Care Team Description 07/08/2020 Office Visit Cardiology Anabel Starkey M D [address] [place] [address] [address] [place] [address] [phone] 07/17/2020 Routine Obstetrics & Monson, Lety Cai MD Visit Gynecology [address] [place] [address] [address] [place] [address] [phone] Health Maintenance Due Date Last Done Comments [...] filedocumented in this encounter Visit Diagnoses Diagnosis Anemia of mother in , antepartu m - Primary Anemia, antepartum documented in this encounter Insurance Payer Benefit Plan / Subscriber ID Effective Phone Address [facility] Dates DUC XAVIER [id number] 2020-Pres P O BOX Medic aid [place]CARE [place] [id number] MANAGED MEDICAID [place] documented as of this encounter
--- OUTSIDE RECORDS SUMMARY | 2020-07-11 23:46 | XMS REPORT | Summary of Care ---
:1995 Author Organization [facility] Address [address] [place] [address] Care Team Providers Name Role Phone Pcp, Patient Does Not Have A Primary Care Provider +1-000-00 0-0000 Reason for Referral (Routine) Status Reason Specialty Diagnoses / Referred By Referred To Procedures Contact Contact New Request Diagnoses Palpitations Anabel Starkey MD Procedures EVENT MONITOR [address] [place] [address] [address] [place], [place] [address] (Routine) Status Reason Specialty Diagnoses / Referred By Referred To Procedures Contact Contact New Request Cardiology Diagnoses Dizziness and giddiness Palpitations Anabel Starkey MD Procedures ECHO ROUTINE W/DOPPLER COLOR Preferred Location: [address] [place], [place] [address] Reason for Visit Reason Comments New Patient Establish Care Ekg Done today in Office (Routine) Status Reason Specialty Diagnoses / Referred By Referred To Procedures Contact Contact New Request Cardiology Diagnoses High-risk in third trimester 33 weeks gestation of Palpitations Dizziness and giddiness Lety Monson MD Procedures CONSULT/REFERRAL CARDIOLOGY [address] [place] [address] DR. Garcia [place], [place] [address] Encounter Details Date Type Department Care Team Description 07/08/2020 Office Visit [facility] Anabel Starkey M D Dizziness and giddiness (Primary Dx); Cardiology- [address] Palpitations; [address] [place] [address] Obesity (BMI 30-39.9) Drive, [address] [place] [id number] [phone] Allergies No Known Allergiesdocumented as of this encounter (statuses as of 07/08/2020) Medications Medication Sig Dispensed Refills Start Date End Date Status acetaminophen Take by 0 Active (TYLENOL ORAL) mouth. aspirin 81 mg Take 81 mg 0 Activ e chewable tablet by mouth daily. vit Take by 0 Active calc,iron,folic mouth. ( VITAMIN ORAL) ferrous sulfate Take 1 60 tablet 0 07/08/2020 Act franny (IRON, FERROUS tablet by SULFATE,) 325 mg mouth 2 (65 mg iron) (two) times tabletIndications: daily. Anemia of mother in , antepartum penicillin v Take 500 mg 0 Disco ntinued potassium 500 mg by mouth. 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 documented as of this encounter Last Filed Vital Signs Vital Sign Reading Time Taken Comments Blood Pressure 122/76 07/08/2020 1:26 PM LAY OUT INSPECTOR Pulse 103 07/08/2020 1:26 PM LAY OUT INSPECTOR Temperature - - Respiratory Rate 20 07/08/2020 1:26 PM LAY OUT INSPECTOR Oxygen Saturation 99% 07/08/2020 1:26 PM LAY OUT INSPECTOR Inhaled Oxygen Concentration - - Weight 93.4 kg (205 lb 12.8 oz) 07/08/2020 1:26 PM LAY OUT INSPECTOR Height 160 cm (5' 3") 07/08/2020 1:26 PM LAY OUT INSPECTOR Body Mass Index 36.46 07/08/2020 1:26 PM LAY OUT INSPECTOR documented in this encounter Progress Notes Anabel Starkey MD - 07/08/2020 1:20 PM CST CARDIOLOGY CLINIC NOTE 07/08/2020 Reason for Referral/Presenting Complaint: palpitations, dizziness PCP: PATIENT DOES NOT HAVE A PCP History of Present Illness: Brooklyn Nieves is a 25 years old female with history of obesity and HTN during her 1st . Now she is 36-week . She has had chronic palpitations for years which has been worse since the . It occurs at random frequency--maybe once every few days feeling heart beating fast suddenly lasting a minute, associated with dizziness and presyncope. Associated with mild chest pain and dyspnea. No edema, orthopnea. Cardiovascular testing: EK07/08/2020--reviewed by me Normal sinus rhythm. Normal EKG. Review of Systems: General: (-) fever, (-) chills, (-) weight change, (+) dizziness, (-) fatigue Skin: (-) rash HEENT: (-) headache, (-) change in vision Neck: (-) difficulty swallowing Heme: negative Resp: (-) cough, (-) dyspnea on exertion Cardio: (-) chest pain, (+) palpitations, (-) syncope GI: (-) vomiting, (-) diarrhea : negative Endo: (-) diabetes, (-) thyroid disease Neuro: (-) numbness, (-) tingling, (-) weakness Back: (-) pain GRACIELA: (-) muscle pain, (-) claudication Psych: (-) anxiety, (-) depression Past Medical History: Past Medical History: Diagnosis Date Asthma Current Medications: Current Outpatient Medications Medication Sig Dispense Refill ferrous sulfate (IRON, FERROUS SULFATE,) 325 mg (65 mg iron) tablet Take 1 tablet by mouth 2 (two) times daily. 60 tablet 0 aspirin 81 mg chewable tablet Take 81 mg by mouth daily. vit calc,iron,folic ( VITAMIN ORAL) Take by mouth. acetaminophen (TYLENOL ORAL) Take by mouth. No current facility-administered medications for this visit. Social History: Social History Socioeconomic History Marital status: Spouse [...] file Gets together: Not on file Attends pentecostalism service: Not on file Active member of [...] History Narrative Denies physical and sexual abuse. Family History Family History Problem Relation Age of Onset Anxiety Mother Depression Mother Mental illness Father Lung Cancer Paternal Grandmother Physical Examination: BP 122/76 (BP Location: Left arm, Patient Position: Sitting, BP CUFF SIZE: Adult Large) | Pulse 103 | Resp 20 | Ht 5' 3" (1.6 m) | Wt 205 lb 12.8 oz (93.4 kg) | LMP 10/31/2019 (Exact Date) | [id number]% | BMI 36.46 kg/m Constitutional: alert and oriented x 3 (person, place and date/time); no apparent distress, obese ENT: normocephalic atraumatic, supple, no lymphadenopathy, no bruits, no JVD Lungs: clear to auscultation bilaterally Cardiovascular: S1, S2 normal, regular; no murmurs, rubs or gallops GI: soft; non-tender; + distended; normoactive bowel sounds : not examined Musculoskeletal: Extremities: no clubbing, cyanosis, or edema Skin: no rashes Neuro: no focal deficits Assessment/Plan: ICD-10-CM ICD-9-CM 1. Dizziness and giddiness R42 780.4 2. Palpitations R00.2 785.1 3. Obesity (BMI 30-39.9) E66.9 278.00 Palpitations and dizziness--seems chronic, worse since . Will get ECHO to rule out structural heart disease and 30-day event monitor to assess arrhythmias. Holter is not a good option due to infrequent events. Her baseline high heart rate is due to obesity and deconditioning. Patient was counseled for lifestyle modifications including: diet, exercise and weight loss Thank you for allowing us to participate in the care of your patient. Please feel free to contact usfor any questions or if we can be of further assistance. Anabel Starkey MD, [facility] [place] [facility] [place], Division of Cardiology [facility] documented in this encounter Plan of Treatment Date Type Specialty Care Team Description 07/17/2020 Routine Visit Obstetrics & Monson, Lety Cai MD Gynecology [address] [place] [address] DR. [address] [place], [place] [address] [phone] 07/24/2020 Laboratory Only Cardiology Pc, Adc Echo Room 1 - 07/24/2020 Nurse Visit Cardiology Visit, Adc Nurse Name Type Priority Associated Diagnoses Order S chedule EKG-12 LEAD HEART STATION Routine Dizziness and giddiness Ord ered: 07/08/2020 ROUTINE EVENT MONITOR 30 PROCEDURES Routine Palpitations 1 Occurrenc es DAYS starting 2019 until 1 Health Maintenance Due Date Last Done Comments VARICELLA VACCINES (1 of 2 - 1997 2-dose childhood series) HPV VACCINES (1 - 2-dose series) 2007 PAP SMEAR 2017 CHLAMYDIA SCREENING 07/03/2021 07/03/2020 Depression Screening 07/08/2021 07/08/2020 DTaP,Tdap,and Td Vaccines (2 - Td) 06/05/2030 06/05/2020 INFLUENZA VACCINE Completed 06/05/2020 PNEUMOCOCCAL 0-64 YEARS COMBINED Aged Out No longer eligible based on SERIES patient's age to complete this topic documented as of this encounter Results Not on filedocumented in this encounter Visit Diagnoses Diagnosis Dizziness and giddiness - Primary Palpitations Obesity (BMI 30-39.9) Obesity, unspecified documented in this encounter Insurance Payer Benefit Plan / Subscriber ID Effective Phone Address T ype Group Dates DUC XAVIER [id number] 2020-Pres P O BOX Medic aid [place]CARE [place] [id number] MANAGED MEDICAID [place] documented as of this encounter
--- OUTSIDE RECORDS SUMMARY | 2020-07-11 23:46 | XMS REPORT | Summary of Care ---
:1995 Author Organization [facility] - [facility] Address [address] [place] [id number] Care Team Providers Name Role Phone Pcp, Patient Does Not Have A Primary Care Provider +[id number] 0-0000 Reason for Referral (Routine) Status Reason Specialty Diagnoses / Referred By Referred To Procedures Contact Contact New Request Diagnoses Palpitations Anabel Starkey MD Procedures EVENT MONITOR [address] [place] [address] [address] [place], [place] [address] (Routine) Status Reason Specialty Diagnoses / Referred By Referred To Procedures Contact Contact New Request Cardiology Diagnoses Dizziness and giddiness Palpitations Anabel Starkey MD Procedures ECHO ROUTINE W/DOPPLER COLOR Preferred Location: [address] [place], [place] [address] Reason for Visit Reason Comments New Patient Establish Care Ekg Done today in Office (Routine) Status Reason Specialty Diagnoses / Referred By Referred To Procedures Contact Contact New Request Cardiology Diagnoses High-risk in third trimester 33 weeks gestation of Palpitations Dizziness and giddiness Lety Monson MD Procedures CONSULT/REFERRAL CARDIOLOGY [address] [place] [address] DR. Garcia [place], [place] [address] Encounter Details Date Type Department Care Team Description 07/08/2020 Office Visit [facility] Anabel Starkey M D Dizziness and giddiness (Primary Dx); Cardiology- [address] Palpitations; [address] [place] [address] Obesity (BMI 30-39.9) Drive, [address] [place] [id number] [phone] Allergies No Known Allergiesdocumented as of this [...] with No / Unsure 07/08/2020 1:21 PM EMERGENCY DISPATCHER someone who was confirmed or suspected to have Coronavirus / COVID-19? documented as of this encounter Last Filed Vital Signs Vital Sign Reading Time Taken Comments Blood Pressure 122/76 07/08/2020 1:26 PM EMERGENCY DISPATCHER Pulse 103 07/08/2020 1:26 PM EMERGENCY DISPATCHER Temperature - - Respiratory Rate 20 07/08/2020 1:26 PM EMERGENCY DISPATCHER Oxygen Saturation 99% 07/08/2020 1:26 PM EMERGENCY DISPATCHER Inhaled Oxygen Concentration - - Weight 93.4 kg (205 lb 12.8 oz) 07/08/2020 1:26 PM EMERGENCY DISPATCHER Height 160 cm (5' 3") 07/08/2020 1:26 PM EMERGENCY DISPATCHER Body Mass Index 36.46 07/08/2020 1:26 PM EMERGENCY DISPATCHER documented in this encounter Progress Notes Anabel [...] file Gets together: Not on file Attends anabaptism service: Not on file Active member of [...] kg) | LMP 10/31/2019 (Exact Date) | [id number]% | BMI 36.46 kg/m Constitutional: alert and [...] be of further assistance. Anabel Starkey MD, [facility] [place] Manufacturing Production Technician, Division of Cardiology [facility]ly [facility] documented in this encounter Plan of Treatment Date Type Specialty Care Team Description 07/17/2020 Routine Visit Obstetrics & Monson, Lety Cai MD Gynecology [address] [place] [address] DR. Garcia [place], [place] [address] [phone] 07/24/2020 Laboratory Only Cardiology Pc, Adc Echo [...] Address T ype Group Dates DUC XAVIER [id number] 2020-Pres P O BOX Medic aid HEALTHCARE [place] [id number] MANAGED MEDICAID [place], [place] documented as of this encounter
--- NOTE | 2020-07-12 00:59 | ER ---
Nurse's Notes [facility] Name: Brooklyn Nieves Age: 25 yrs Sex: Female : 1995 Arrival Date: 07/11/2020 Time: 23:46 Bed 20 Private MD: Diagnosis: Right Otitis Media. 3rd Trimester Presentation: 07/11 23:52 Acuity: BIBIANA 4 ll2 07/12 00:10 Chief complaint: Patient states: for past 4 days rt ear pain that is waking her up at ll2 night. Coronavirus screen: Client denies travel out of the [place] in the last 14 days. At this time, the client does not indicate any symptoms associated with coronavirus-19. Ebola Screen: Patient negative for fever greater than or equal to 101.5 degrees Fahrenheit, and additional compatible Ebola Virus Disease symptoms. Initial Sepsis Screen: Does the patient meet any 2 criteria? No. Patient's initial sepsis screen is negative. Does the patient have a suspected source of infection? No. Patient's initial sepsis screen is negative. Risk Assessment: Do you want to hurt yourself or someone else? Patient reports no desire to harm self or others. Onset of symptoms was July 08, 2020. 00:10 Method Of Arrival: Ambulatory ll2 Historical: - Allergies: 00:13 No Known Allergies; ll2 - Home Meds: 00:13 Vitamin Oral tab [Active]; ll2 - PMHx: 00:13 None; ll2 - Immunization history:: Adult Immunizations up to date. - Social history:: Smoking status: Patient denies any tobacco usage or history of. Screenin:09 Abuse screen: Denies threats or abuse. Nutritional screening: No deficits noted. ll2 Tuberculosis screening: No symptoms or risk factors identified. Fall Risk None identified. Assessment: 07/11 23:45 General: Appears in no apparent distress. Behavior is calm, cooperative, appropriate ll2 for age. Pain: Complains of pain in right ear. Neuro: Level of Consciousness is awake, alert, obeys commands, Oriented to person, place, time, situation. Cardiovascular: Patient's skin is warm and dry. Respiratory: Airway is patent Respiratory effort is even, unlabored, Respiratory pattern is regular, symmetrical. GI: No signs and/or symptoms were reported involving the gastrointestinal system. : No signs and/or symptoms were reported regarding the genitourinary system. Derm: Skin is intact, is healthy with good turgor, Skin is pink, warm \T\ dry. Musculoskeletal: Circulation, motion, and sensation intact. Range of motion: intact in all extremities. 07/12 00:13 Reassessment: pr currently 36 weeks . ll2 00:43 Reassessment: Patient and/or family updated on plan of care and expected duration. Pain ll2 level reassessed. Patient is alert, oriented x 3, equal unlabored respirations, skin warm/dry/pink. erd to bedside. Vital Signs: 00:10 BP 146 / 92; Pulse 92; Resp 18; Temp 98.4; Pulse Ox 99% on R/A; ll2 00:10 Weight 92.99 kg; Height 5 ft. 3 in. (160.02 cm); Pain 8/10; ll2 00:12 BP 146 / 92; Pulse 92; Resp 18; Temp 98.4; Pulse Ox 99% on R/A; ll2 00:10 Body Mass Index 36.31 (92.99 kg, 160.02 cm) ll2 Vitals: 00:30 Heart Tones 154. ll2 ED Course: 07/11 23:46 Patient arrived in ED. ds1 23:48 Anand Monson MD is Attending Physician. pkl 23:52 Mery Pyle, PAVAN is Primary Nurse. ll2 23:52 Triage completed. ll2 07/12 00:10 Arm band placed on right wrist. ll2 Administered Medications: 00:49 Drug: Augmentin 875 mg Route: PO; ll2 00:49 Follow up: Response: No adverse reaction; Medication administered at discharge. ll2 Outcome: 00:58 Discharge ordered by . pkl 01:18 Patient left the ED. tt3 Signatures: Anand Monson MD MD pkl Teresa James ds1 Mery Pyle, PAVAN RN ll2 Didier Tomlinson tt3
--- NOTE | 2020-07-12 00:59 | EDPHYS ---
Physician Documentation [facility] Name: Brooklyn Nieves Age: 25 yrs Sex: Female : 1995 Arrival Date: 07/11/2020 Time: 23:46 Bed 20 Private MD: ED Physician Anand Monson HPI: 07/12 00:47 This 25 yrs old Female presents to ER via Ambulatory with complaints of Ear pkl Pain. 00:47 The patient presents with pain, that is acute. The complaints affect the right ear. pkl Onset: The symptoms/episode began/occurred 4 day(s) ago. Patient is 36 weeks . Historical: - Allergies: 00:13 No Known Allergies; ll2 - Home Meds: 00:13 Vitamin Oral tab [Active]; ll2 - PMHx: 00:13 None; ll2 - Immunization history:: Adult Immunizations up to date. - Social history:: Smoking status: Patient denies any tobacco usage or history of. ROS: 00:47 Eyes: Negative for injury, pain, redness, and discharge. pkl 00:47 ENT: Positive for ear pain. 00:47 Neck: Negative for stiffness. 00:47 Cardiovascular: Negative for chest pain. 00:47 Respiratory: Negative for cough, shortness of breath. 00:47 Abdomen/GI: Positive for gravid uterus. 00:47 Back: Negative for acute changes. 00:47 : Negative for urinary symptoms. 00:47 MS/extremity: Negative for acute changes. 00:47 Skin: Negative for rash. 00:47 Neuro: Negative for altered mental status. Exam: 00:47 Head/Face: Normocephalic, atraumatic. Eyes: Pupils equal round and reactive to light, pkl extra-ocular motions intact. Lids and lashes normal. Conjunctiva and sclera are non-icteric and not injected. Cornea within normal limits. Periorbital areas with no swelling, redness, or edema. 00:47 ENT: TM's: erythema, that is mild. 00:47 Neck: Exam negative for nuchal rigidity. 00:47 Chest/axilla: Exam negative for acute changes. 00:47 Cardiovascular: Rate: normal, Rhythm: regular. 00:47 Respiratory: the patient does not display signs of respiratory distress, Respirations: normal, Breath sounds: are clear throughout. 00:47 Abdomen/GI: Inspection: gravid appearance, is noted. 00:47 Back: Exam negative for acute changes. 00:47 : Exam negative for acute changes. 00:47 Musculoskeletal/extremity: Exam is negative for acute changes. 00:47 Skin: Exam negative for rash. 00:47 Neuro: Orientation: is normal, Mentation: is normal, Cranial nerves: grossly normal, Motor: is normal. Vital Signs: 00:10 BP 146 / 92; Pulse 92; Resp 18; Temp 98.4; Pulse Ox 99% on R/A; ll2 00:10 Weight 92.99 kg; Height 5 ft. 3 in. (160.02 cm); Pain 8/10; ll2 00:12 BP 146 / 92; Pulse 92; Resp 18; Temp 98.4; Pulse Ox 99% on R/A; ll2 00:10 Body Mass Index 36.31 (92.99 kg, 160.02 cm) ll2 MDM: 07/11 23:48 Patient medically screened. pkl 07/12 00:47 Data reviewed: vital signs, nurses notes. pkl Administered Medications: 00:49 Drug: Augmentin 875 mg Route: PO; ll2 00:49 Follow up: Response: No adverse reaction; Medication administered at discharge. ll2 Disposition: 07/12/20 00:58 Discharged to Home. Impression: Right Otitis Media. 3rd Trimester . - Condition is Stable. - Discharge Instructions: Earache, Adult, Third Trimester of , [id number]. - Prescriptions for Augmentin 875- 125 mg Oral Tablet - take 1 tablet by ORAL route every 12 hours for 5 days; 10 tablet. - Medication Reconciliation Form, Thank You Letter, Antibiotic Education, Prescription Opioid Use form. - Follow up: Private Physician; When: 2 - 3 days; Reason: Re-evaluation by your physician. - Problem is new. - Symptoms have improved. Signatures: Anand Monson MD MD pkl Mery Pyle RN RN ll2 Didier Tomlinson tt3 Corrections: (The following items were deleted from the chart) 01:18 00:58 07/12/2020 00:58 Discharged to Home. Impression: Right Otitis Media. 3rd tt3 Trimester . Condition is Stable. Forms are Medication Reconciliation Form, Thank You Letter, Antibiotic Education, Prescription Opioid Use. Follow up: Private Physician; When: 2 - 3 days; Reason: Re-evaluation by your physician. Problem is new. Symptoms have improved. pkl
[2020-07-12] MEDS ORDERED: AMOX/K CLAV 875 MG TAB ONE (01:01)
[2020-07-12 01:25] VITALS: BP 146/92; TEMP 98.4; O2SAT 99
== END 2020-07-12 01:18 | disposition home or self-care (01) ==
LOC: ER 23:43
DX: O26.893 Other specified pregnancy related conditions, third trimester (principal); H66.91 Otitis media, unspecified, right ear; Z3A.36 36 weeks gestation of pregnancy
CPT/HCPCS: 99283

== ENCOUNTER 2020-08-08 04:31 | Observation (INO) | payer MEDICAID ==
--- OUTSIDE RECORDS SUMMARY | 2020-08-08 04:35 | XMS REPORT | Continuity of Care Document ---
:1995 Author Organization [facility] t Address [address] [place] [address] Care Team Providers Name Role Phone Ermias TEIXEIRA, Trell Attending Clinician Trell Monson MD Admitting Clinician Problems This patient has no known problems. Allergies, Adverse Reactions, Alerts This patient has no known allergies or adverse reactions. Medications This patient has no known medications. Procedures This patient has no known procedures. Encounters Start End Encounter Admission Attending Care Care Encounter Source Date/Time Date/Time Type Type Clinicians Facility Department ID 2020-07-30 2020-08-01 [facility] Ermias Lety [facility] [id number] 04:14:00 10:50:00 Encounter Trell Pimentel [id number] [facility] [id number] Mobile [id number] 2020-07-24 2020-07-24 Routine Lety Monson [facility] [id number] 10:11:03 10:46:28 Cam [facility]ore [id number] Visit [facility] [id number] Profess [id number] [address] Building Results This patient has no known results.
--- OUTSIDE RECORDS SUMMARY | 2020-08-08 04:35 | XMS REPORT | Summary of Care ---
:1995 Author Organization [facility] - [facility] Address [address] [place] [address] Care Team Providers Name Role Phone Pcp, Patient Does Not Have A Primary Care Provider +1-000-00 0-0000 Reason for Visit Reason Comments Ear Pain right ear pain Encounter Details Date Type Department Care Team Description 07/23/2020 Urgent Care [facility] Family Silvano Gonzales, DAY HABILITATION SUPERVISOR [address] [place] [address] Acute otitis media, Medicine - [place] Provider, [facility] Urgent Care unspecified otitis [address] media type ([address] Dx) [place] [address] Allergies No Known Allergiesdocumented as of this encounter (statuses as of 07/23/2020) Medications Medication Sig Dispensed Refills Start Date End Date Status acetaminophen (TYLENOL Take by mouth. 0 Active ORAL) vit Take by mouth. 0 A ctive calc,iron,folic ( VITAMIN ORAL) ferrous sulfate (IRON, Take 1 tablet 60 tablet 0 07/08/2020 Active FERROUS SULFATE,) 325 by mouth 2 mg (65 mg iron) (two) times tabletIndications: daily. Anemia of mother in , antepartum fluconazole (DIFLUCAN) Take 1 tablet 1 tablet 0 07/17/2020 Active 200 mg by mouth daily. tabletIndications: High-risk in third trimester, Vulvar irritation amoxicillin 500 mg Take 1 tablet 14 tablet 0 07/23/20202020 Active tabletIndications: by mouth 2 Acute otitis media, (two) times unspecified otitis daily for 7 media type days. documented as of this encounter (statuses as of 07/23/2020) Active Problems Problem Noted Date Palpitations 06/19/2020 Obesity (BMI 30-39.9) 06/05/2020 Excessive weight gain during in third trimes ter 06/05/2020 High-risk in third trimester 06/05/2020 History of pre-eclampsia 06/05/2020 Dizziness and giddiness 06/05/2020 Estimated Date of Delivery Comments Yes 08/06/2020 Based on last menstr ual period of 10/31/2019 (Exact Date) documented as of this encounter (statuses as of 07/23/2020) Immunizations Name Administration Dates Next Due Influenza [...] been in contact with No / Unsure 07/23/2020 9:09 AM DYE FEEDER someone who was confirmed or suspected to have Coronavirus / COVID-19? documented as of this encounter Last Filed Vital Signs Vital Sign Reading Time Taken Comments Blood Pressure 139/88 07/23/2020 9:09 AM DYE FEEDER Pulse 71 07/23/2020 9:09 AM DYE FEEDER Temperature 36.8 C (98.3 F) 07/23/2020 9:09 AM DYE FEEDER Respiratory Rate 18 07/23/2020 9:09 AM DYE FEEDER Oxygen Saturation 99% 07/23/2020 9:09 AM DYE FEEDER Inhaled Oxygen Concentration - - Weight 95.7 kg (211 lb) 07/23/2020 9:09 AM DYE FEEDER Height 160 cm (5' 3") 07/23/2020 9:09 AM DYE FEEDER Body Mass Index 37.38 07/23/2020 9:09 AM DYE FEEDER documented in this encounter Patient Instructions Patient InstructionsAnnetta Gonzales FNP - 07/23/2020 9:00 AM DYE FEEDER Patient Education Middle Ear Infection (Adult) You have an infection of the middle ear, the space behind the eardrum. This is also called acute otitis media (AOM). Sometimes it's caused by the common cold. This is because congestion can block the internal passage (eustachian tube) that drains fluid from the middle ear. When the middle ear fills with fluid, bacteria can grow there and cause an infection. Oral antibiotics are used to treat this illness, not ear drops. Symptoms usually start to improve within 1 to 2 days of treatment. Home care The following are general care guidelines: Finish all of the antibiotic medicine given, even though you may feel better after the first few days. You may use [id number] medicine, such as acetaminophen or ibuprofen, to control pain and fever, unless something else was prescribed. Talk with your healthcare provider before using these medicines if you have chronic liver or kidney disease. Also talk with your provider if you have had a stomach ulcer or digestive bleeding. Don't give aspirin to anyone under 18 years of age who has a fever.It may cause severe illness or . Follow-up care Follow up with your healthcare provider in 2 weeks, or as advised, if all symptoms have not gotten better, or if hearing doesn't go back to normal within 1 month. When to seek medical advice Call your healthcare provider right away if any of these occur: Ear pain gets worse or does not improve after 3 days of treatment Unusual drowsiness or confusion Neck pain, stiff neck, or headache Fluid or blood draining from the ear canal Fever of 100.4F (38C) or as advised Seizure Grass[employer]! last reviewed this educational content on 03/12/201919994796-6535 [employer]. [address] [place] [address], [place] [address]. All rights reserved. This information is not intended as a substitute for professional medical care. Always follow your healthcare professional's instructions. FEEDER documented in this encounter Progress Notes Annetta Gonzales FNP - 07/23/2020 9:00 AM CST Cc: Chief Complaint Patient presents with Ear Pain right ear pain Brooklyn Nieves is a 25 year old female. Patient was treated for otitis media with amoxicillin for only 5 days and here because she continuesto have pain in the same ear the right side. Ear Pain Location: Right Behind ear: No abnormality Quality: Throbbing Severity: Moderate Onset quality: Gradual Timing: Constant Progression: Unchanged Chronicity: New Context: recent URI Relieved by: Nothing Worsened by: Palpation and position Ineffective treatments: antibiotics. Associated symptoms: no cough, no ear discharge, no fever and no tinnitus Allergies Brooklyn has No Known Allergies. Medications Outpatient Medications Prior to Visit Medication Sig Dispense Refill fluconazole (DIFLUCAN) 200 mg tablet Take 1 tablet by mouth daily. 1 tablet 0 ferrous sulfate (IRON, FERROUS SULFATE,) 325 mg (65 mg iron) tablet Take 1 tablet by mouth 2 (two) times daily. 60 tablet 0 acetaminophen (TYLENOL ORAL) Take by mouth. vit calc,iron,folic ( VITAMIN ORAL) Take by mouth. No facility-administered medications prior to visit. Histories Past Medical History: Diagnosis Date Asthma No past surgical history on file. Social History Socioeconomic History Marital status: Spouse [...] file Gets together: Not on file Attends protestant service: Not on file Active member of [...] Denies physical and sexual abuse. Family History Problem Relation Age of Onset Anxiety Mother Depression Mother Mental illness Father Lung Cancer Paternal Grandmother Review of Systems Constitutional: Negative. Negative for fever. HENT: Positive for ear pain. Negative for ear discharge and tinnitus. Respiratory: Negative. Negative for apnea, cough, choking, chest tightness, shortness of breath andwheezing. Cardiovascular: Negative. Negative for chest pain, palpitations and leg swelling. Gastrointestinal: Negative. Skin: Negative. Neurological: Negative. Endocrine: Endocrine negative Vital Signs BP 139/88 | Pulse 71 | Temp 36.8 C (98.3 F) (Oral) | Resp 18 | Ht 5' 3" (1.6 m) | Wt 211 lb(95.7 kg) | LMP 10/31/2019 (Exact Date) | SpO2 99% | BMI 37.38 kg/m Physical Exam Vitals signs and nursing note reviewed. Constitutional: Appearance: She is well-developed. HENT: Head: Normocephalic. Right Ear: Hearing, ear canal and external ear normal. Tympanic membrane is erythematous. Left Ear: Hearing, tympanic membrane, ear canal and external ear normal. Nose: Nose normal. Neck: Musculoskeletal: Normal range of motion and neck supple. Cardiovascular: Rate and Rhythm: Normal rate and regular rhythm. Heart sounds: Normal heart sounds. No murmur. No friction rub. No gallop. Pulmonary: Effort: Pulmonary effort is normal. No respiratory distress. Breath sounds: Normal breath sounds. No wheezing or rales. Chest: Chest wall: No tenderness. Abdominal: General: Bowel sounds are normal. There is no distension. Palpations: Abdomen is soft. Tenderness: There is no abdominal tenderness. Lymphadenopathy: Head: Right side of head: Posterior auricular adenopathy present. No submental, submandibular, tonsillar or preauricular adenopathy. Left side of head: No submental, submandibular, tonsillar, preauricular or posterior auricular adenopathy. Cervical: No cervical adenopathy. Skin: General: Skin is warm and dry. Capillary Refill: Capillary refill takes less than 2 seconds. Coloration: Skin is not pale. Findings: No erythema or rash. Neurological: Mental Status: She is alert and oriented to person, place, and time. Psychiatric: Mood and Affect: Mood normal. Assessment/Plan Acute otitis media, unspecified otitis media type (primary encounter diagnosis) Comment: will treat a bit longer with antibiotics Plan: amoxicillin 500 mg tablet If no improvement, will consider referral to ENT Home care instructions reviewed and copy added to AVS Plan of care, desired health behaviors, goals, and medication discussed with patient. Education resources provided and reviewed with AVS. Patient/guardian/family verbalized understanding & agrees to plan of care. This visit did not involve counseling and coordination that comprised more than 50% of the visit time. If applicable, the [place] [employer] database was accessed to review any controlled substance prescription claims data. The [employer] prescription claims data in [employer] was reviewed to assess patient compliance with the medication treatment plan. FEEDER documented in this encounter Plan of Treatment Date Type Specialty Care Team Description 07/24/2020 Routine Obstetrics & Monson, Lety Cai MD Visit Gynecology [address] [place] [address] DR. Garcia [place], [place] [address] [phone] Health Maintenance Due Date Last Done Comments [...] filedocumented in this encounter Visit Diagnoses Diagnosis Acute otitis media, unspecified otitis m edia type - Primary documented in this encounter Insurance Payer Benefit Plan / Subscriber ID Effective Phone Address T ype Group Dates DUC XAVIER [id number] 2020-Pres P [address] BOX Medic aid HEALTHCARE - [place]CARE [place] [id number] MANAGED MEDICAID [place], [place] documented as of this encounter
--- OUTSIDE RECORDS SUMMARY | 2020-08-08 04:35 | XMS REPORT | Summary of Care ---
:1995 Author Organization [facility] Address [address] [place] [id number] Care Team Providers Name Role Phone Pcp, Patient Does Not Have A Primary Care Provider +[id number] Reason for Visit Reason Comments ROUTINE VISIT Encounter Details Date Type Department Care Team Description 07/17/2020 Routine [facility] Women's Lety Monson am, MD High-risk in third trimester ( Primary Dx); Visit Healthcare- [address] [place] [address] Vulvar irr itation; [place] Vaginal discharge; [address] [place] [address] [address] Decreased movements in third trime ster, single or unspecified fetus; Drive, [address] [place], [place] 37 weeks [place] [phone] Allergies No Known Allergiesdocumented as of this encounter (statuses as of 07/17/2020) Medications Medication Sig Dispensed Refills Start Date End Date Status acetaminophen Take by 0 Active (TYLENOL ORAL) mouth. vit Take by 0 Active calc,iron,folic mouth. ( VITAMIN ORAL) ferrous sulfate Take 1 60 tablet 0 07/08/2020 Act franny (IRON, FERROUS tablet by SULFATE,) 325 mg mouth 2 (65 mg iron) (two) times tabletIndications: daily. Anemia of mother in , antepartum fluconazole Take 1 1 tablet 0 07/17/2020 Active (DIFLUCAN) 200 mg tablet by tabletIndications: mouth daily. High-risk in third trimester, Vulvar irritation aspirin 81 mg Take 81 mg 0 Disco ntinued chewable tablet by mouth 1 (Pat ient daily. Reported) documented as of this encounter (statuses as of 07/17/2020) Active Problems Problem Noted Date Palpitations 06/19/2020 Obesity (BMI 30-39.9) 06/05/2020 Excessive weight gain during in third trimes ter 06/05/2020 High-risk in third trimester 06/05/2020 History of pre-eclampsia 06/05/2020 Dizziness and giddiness 06/05/2020 Estimated Date of Delivery Comments Yes 08/06/2020 Based on last menstr ual period of 10/31/2019 (Exact Date) documented as of this encounter (statuses as of 07/17/2020) Immunizations Name Administration Dates Next Due Influenza [...] been in contact with No / Unsure 07/17/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 documented as of this encounter Last Filed Vital Signs Vital Sign Reading Time Taken Comments Blood Pressure 130/76 07/17/2020 1:13 PM PACKAGE DYEING MACHINE OPERATOR Pulse 88 07/17/2020 1:13 PM PACKAGE DYEING MACHINE OPERATOR Temperature 37 C (98.6 F) 07/17/2020 1:13 PM PACKAGE DYEING MACHINE OPERATOR Respiratory Rate 18 07/17/2020 1:13 PM PACKAGE DYEING MACHINE OPERATOR Oxygen Saturation - - Inhaled Oxygen Concentration - - Weight 95.7 kg (211 lb) 07/17/2020 1:13 PM PACKAGE DYEING MACHINE OPERATOR Height 160 cm (5' 3") 07/17/2020 1:13 PM PACKAGE DYEING MACHINE OPERATOR Body Mass Index 37.38 07/17/2020 1:13 PM PACKAGE DYEING MACHINE OPERATOR documented in this encounter Progress Notes Lety Monson MD - 07/17/2020 1:00 PM CST ROUTINE VISIT 07/17/2020 1:02 PM SUBJECTIVE Brooklyn Nieves is a 25 year old at 37w1d who presents for routine visit. She has complaints of vaginal irritation, and decreased movement today; denies contractions, loss of fluid,vaginal bleeding, and signs or symptoms of pre-eclampsia. OBJECTIVE BP: (130)/(76) Temp: [37 C (98.6 F)] Temp source: Oral (07/17 1313) Pulse: [88] Resp: [18] SpO2: -- Height: [5' 3" (160 cm)] Weight: [211 lb (95.7 kg)] BMI (calculated): [37.38] BP 130/76 (BP Location: Left arm, Patient Position: Sitting, BP CUFF SIZE: Adult Medium) | Pulse 88 | Temp 37 C (98.6 F) (Oral) | Resp 18 | Ht 5' 3" (1.6 m) | Wt 211 lb (95.7 kg) | LMP 10/31/2019 (Exact Date) | BMI 37.38 kg/m FH: 38 cm FHT: 136 Physical Exam: Gen: A&Ox3, NAD CV: RRR Pulm: CTAB Abd: Soft, gravid, NTTP, no rebound or guarding Ext: No calf tenderness : Erythema externally, minimal discharge noted in the vagina SVE1/0/floating ASSESSMENT: Brooklyn Nieves is a 25 year old at 37w1d who presents for routine visit. PLAN See OB Summary RTC in 1 week for PN visit Scribe's Attestation I, Lester Clinton , am scribing for, and in the presence of, Lety Monson MD who performed the services described here-in. Lester Clinton, July 17, 2020, 1:03 PM Physician's Attestation I have seen and examined the patient and agreed with the note above Lety Monson MD 07/17/2020 6:06 PM documented in this encounter Miscellaneous Notes OB Summary Note - Lester Clinton - 07/17/2020 1:00 PM CST Age: [age] year old GA: 37w1d Doing well, no complaints Patient reports external irritation without vaginal discharge or odor. Patient reports irritation began after intercourse with about 2 days ago -Erythema externally noted. Appeared to be yeast vulvitis -Diflucan prescribed Patient reports feeling less movement NST reactive and reassuring NAVJOT: 11.2 Discussed kick counts Palpitations -cardiology Appointment scheduled for 07/24/2020 Elective induction scheduled for 07/30/2020 unless clinically indicated otherwise Hx of asthma Hx of pre-eclampsia with last -not taking low dose ASA anymore -BP WNL today -PIH precautions given RH negative Rhogam received 06/05/2020 GBS neg on 07/03/2020 Daily kick counts and labor precautions given RTC in 1 week for PN visit Scribe's Attestation ILester , am scribing for, and in the presence of, Lety Monson MD who performed the services described here-in. Lester Clinton, July 17, 2020, 1:02 PM Physician's Attestation I have seen and examined the patient and agreed with the note above Lety Monson MD 07/17/2020 6:05 PM documented in this encounter Plan of Treatment Date Type Specialty Care Team Description 07/24/2020 Routine Visit Obstetrics & Lety Monson MD Gynecology [address] [place] [address] DR. 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 trimester, single or unspecified fetu s 37 weeks gestation of POCT URINALYSIS W/O Routine 07/17/2020 High-risk R esults for this SPECIFIC GRAVITY in third trimester proce dure are in the results section. documented in this encounter Results NON-STRESS TEST (07/17/2020 6:03 PM PACKAGE DYEING MACHINE OPERATOR) Specimen Narrative Performed At This result has an attachment that is no t available. Reactive and reassuring PACS [place] with irritability Lety Monson MD 07/17/2020 6:03 PM Performing Organization Address City/State/Zipcode Phone Number PACS POCT URINALYSIS W/O SPECIFIC GRAVITY (07/17/2020) Pathologist Sig nature POCT PH U n/a [...] Diagnosis High-risk in third trimester - Primary Vulvar irritation Other specified noninflammatory disorder of vulva and perineum Vaginal discharge Leukorrhea, not specified as infective Decreased movements in third trime ster, single or unspecified fetus 37 weeks gestation of state, incidental documented in this encounter Insurance Payer Benefit Plan / Subscriber ID Effective Phone Address [facility] Dates DUC XAVIER [id number] 2020-Pres [address] Medic aid HEALTHCARE - [place]ALTHCARE ent [id number] MANAGED MEDICAID [place], MEDICAID [place] documented as of this encounter
--- OUTSIDE RECORDS SUMMARY | 2020-08-08 04:36 | XMS REPORT | Summary of Care ---
:1995 Author Organization [facility] Address [address] [place] [id number] Care Team Providers Name Role Phone Pcp, Patient Does Not Have A Primary Care Provider [id number] Reason for Visit Reason Comments ROUTINE VISIT Encounter Details Date Type Department Care Team Description 07/24/2020 Routine [facility] Lety Monson am, MD High-risk in third trimester ( Primary Dx); Visit Healthcare- [address] [place] [address] 38 weeks g estation of [place] [address] [place] [address], [address] [place] [phone] Allergies No Known Allergiesdocumented as of this encounter (statuses as of 07/25/2020) Medications Medication Sig Dispensed Refills Start Date End Date Status acetaminophen Take by 0 Active (TYLENOL ORAL) mouth. vit Take by 0 Active calc,iron,folic mouth. ( VITAMIN ORAL) ferrous sulfate Take 1 60 tablet 0 07/08/2020 Act franny (IRON, FERROUS tablet by SULFATE,) 325 mg mouth 2 (65 mg iron) (two) times tabletIndications: daily. Anemia of mother in , antepartum amoxicillin 500 mg Take 1 14 tablet 0 07/23/2020 Active tabletIndications: tablet by 1 Acute otitis media, mouth 2 unspecified otitis (two) times media type daily for 7 days. fluconazole Take 1 1 tablet 0 07/17/2020 Discont inued (DIFLUCAN) 200 mg tablet by 1 (T herapy tabletIndications: mouth daily. completed) High-risk in third trimester, Vulvar irritation documented as of this encounter (statuses as of 07/25/2020) Active Problems Problem Noted Date Palpitations 06/19/2020 Obesity (BMI 30-39.9) 06/05/2020 Excessive weight gain during in third trimes ter 06/05/2020 High-risk in third trimester 06/05/2020 History of pre-eclampsia 06/05/2020 Dizziness and giddiness 06/05/2020 Estimated Date of Delivery Comments Yes 08/06/2020 Based on last menstr ual period of 10/31/2019 (Exact Date) documented as of this encounter (statuses as of 07/25/2020) Immunizations Name Administration Dates Next Due Influenza [...] been in contact with No / Unsure 07/24/2020 11:25 AM WEB PRESS OPERATOR ASSISTANT someone who was confirmed or suspected to have Coronavirus / COVID-19? documented as of this encounter Last Filed Vital Signs Vital Sign Reading Time Taken Comments Blood Pressure 125/71 07/24/2020 10:32 AM WEB PRESS OPERATOR ASSISTANT Pulse 99 07/24/2020 10:29 AM WEB PRESS OPERATOR ASSISTANT Temperature 36.9 C (98.4 F) 07/24/2020 10:29 AM WEB PRESS OPERATOR ASSISTANT Respiratory Rate 18 07/24/2020 10:29 AM WEB PRESS OPERATOR ASSISTANT Oxygen Saturation - - Inhaled Oxygen Concentration - - Weight 98 kg (216 lb) 07/24/2020 10:29 AM WEB PRESS OPERATOR ASSISTANT Height 160 cm (5' 3") 07/24/2020 10:29 AM WEB PRESS OPERATOR ASSISTANT Body Mass Index 38.26 07/24/2020 10:29 AM WEB PRESS OPERATOR ASSISTANT documented in this encounter Patient Instructions Patient InstructionsKatlyn Anaya, MA - 07/24/2020 10:15 AM CST Patient Education Labor Induction Labor induction is a way to help get your labor started. This can protect your health and your babys, too. Reasons for inducing labor A healthcare provider will decide to induce labor if the health of the mother or baby is at risk by continuing the . These conditions include: Preeclampsia Poor growth Low amniotic fluid Infection of the membranes (chorioamnionitis) Ruptured bag of water Certain diseases, like diabetes Labor induction may also be done after 39 weeks for a nonmedical reason, such as if the mother livesfar away from the hospital. Ways to induce labor Your healthcare provider can get your labor started by using 1 or more of these methods: Prostaglandin.This is a medicine that may be given as a pill, capsule, or vaginal suppository. It softens, thins (effaces), and opens (dilates) the cervix. This is called cervical ripening. Your healthcare provider may also usea Harmon catheter or a double balloon catheter. He or she inserts the catheter intoyour cervix to push it open. This causes the release of natural prostaglandins. Pitocin (oxytocin). This is a medicine your healthcare provider gives youthrough an IV (intravenous) line. You may get it within 4 to 24 hours after you have prostaglandin. Pitocin helps start contractions. Its always given in the hospital. Rupturing the membrane. This is a procedure in which your healthcare provideruses a small tool to break your bag of water. This is donemore often in women who have given before. And itsalways done in the hospital. Your cervix needs to be dilated enough before this procedure. The baby's head also needs to be down and close to the cervix. Risks of labor induction With labor induction, you may have a higher risk of: A section (surgical delivery), but there may be a lower chance of this in a first delivery An infection A longer stay in the hospital Uterine rupture (rare) (extremely rare) What to expect Prostaglandin may be given in the hospital or at home. monitoring is needed after placement. Other methods of inducing labor are done in the hospital. Youll need to stay in the hospital until you give . Your healthcare provider may attach monitors to your belly. These will measure yourcontractions and help make sure your baby has no problems. No matter how your labor is induced, afew factors may affect how long it takes you to give . These include how long it takes for your cervix to thin and open, and when contractions begin. Give yourself time Even though inducing labor gets the process started, you still may need to wait. Women who have labor induced most often give within a day or so. But it can take as long as a few days to give . [employer] last reviewed this educational content on 01/10/202019999449-9930 The [employer]. All rights reserved. This information is not [...] and the start of the next contraction. [employer] last reviewed this educational content on 02/10/202019996878-6721 [employer]. All rights reserved. This information is not intended as a substitute for professional medical care. Always follow your healthcare professional's instructions. Patient Education Stages of Labor Labor has 3 stages. Your healthcare provider may talk about the progress of your labor with certain words. One of these is your babys position. Another is your babysstation. And the effacement and dilation of your cervix will be noted. Read below to learn about these terms and the 3 stages of labor. Your baby moves into position Position is your babys placement inyour uterus. Your baby may be facing left or right. He or she may be head first or feet first. Station refers to how far your baby has moved down intoyour pelvic cavity. First stage of labor During the first stage of labor, contractions of the uterus help your cervix thin (efface). They also help it widen (dilate). This will help your baby pass through the vagina ( canal). At first your contractions won't come that often or last that long. But as time passes, they will come more often, they may be more painful, and they will last longer. They will last about 30 to 60 seconds each. The first stage of labor lasts until the cervix is fully dilated. Second stage of labor When your cervix is fully dilated, the second stage of labor begins. In this stage, you will have stronger contractions of your uterus that will help your baby move down the canal. They may happen every 2 to 5minutes. They may last from 45 to 90 seconds each. Your healthcare provider will ask you to push with each contraction. Try to rest between the contractions if you can. Your baby is delivered at the end of this stage of labor. Third stage of labor The third stage of labor comes after your baby is born. This is when the afterbirth (placenta) comesout ofyour uterus. Your uterus will continue tocontract. But the contractionsare much milder than before. [employer] last reviewed this educational content on 02/10/202019999324-4547 The [employer]. All rights reserved. This information is not intended as a substitute for professional medical care. Always follow your healthcare professional's instructions. Patient Education Labor and Childbirth: Active Labor During active labor, your contractions will be stronger and more rhythmic than with early labor. They peak and subside like waves. They may happen2 to3 minutes apart and last about 45 to 60 seconds. This part of labor can be hard work. But it is often shorter than early labor. When you reach active labor, exams and tests will be done to see how you and your baby are doing. Your cervix may dilate 4 to 8 centimeters during the first part of active labor. Evaluating you and your baby An exam tells how you and your baby are responding to contractions. Your blood pressure, temperature, and pulse will be checked. A blood or urine sample may also be taken. A monitor will be used to check your babys heart rate. Sometimes an IV (intravenous) line is started to give you medicineand fluids. Moving ahead with labor You may now feel contractions inyour whole stomach instead of just the lower part (like during early labor). If your amniotic sac has not broken already, it may break now. Or, it may be broken for you. To help your baby descend, change position often. Walking or sitting in a rocking chair or recliner may help. You may find it hard to relax even though you are tired. You may also be less interested in talking than you were earlier. If youre having anesthesia, you will get it now. Special issues during labor If labor doesnt progress well or a problem arises, you may need a .But your healthcare providers maytake certain steps to help you avoid a : If your cervix isnt dilating, a medicine (oxytocin)may be used to augment labor. If monitoring shows your baby isnt getting enough oxygen, shifting your body position may help. You may also be given oxygen through a mask. If you have preeclampsia (a condition that results in high blood pressure, swelling, and other symptoms), you may be given medicines by IV (intravenous). Your healthcare provider may also tell you to lie on your left side. Responding to contractions During contractions, try to stay relaxed. Tense muscles use more oxygen, eat up your bodys energy, and increase pain. Use the breathing and relaxation techniques you may have learned. And let your support person know how he or she can help. If youve had problems during a previous , focus onthe present. Keep in mind that no 2 births are the same. Support persons note Here's how you can help: Have the mother walk or change positions at least once an hour. This improves circulation and helps the baby descend. Keep reminding the mother to breathe and relax through each contraction. Reassure her. Try to keep her from getting anxious or overstressed. Take care of yourself. Take a short break to eat or go to the bathroom when you need to. Rest when the mother does. Youll both benefit. [employer] last reviewed this educational content on 08/12/201719999716-1925 The [employer]. All rights reserved. This information is not intended as a substitute for professional medical care. Always follow your healthcare professional's instructions. Patient Education Labor and Childbirth: Immediately after After any type of , your healthcare provider will closely monitor yourrecovery.Youll likely be able to greet your baby and start your new life together. While youre being cared for, yourbaby receives his or her first exam. Starting your life together Attachment, or bonding, starts soon after . Its an ongoing process that may take weeks or months. Be aware that you may not fall in love with your baby right away. Most newborns dont look like the chubby babies you see on TV. Months spent in your uterus and time in the canal can make your look wrinkled and puffy-eyed. A slightly pointed or misshapen head is also common. Theseall go away after a few days. After , you may place your baby on yourstomach or breast. This will signal your body to begin making milk. If you choose not to breastfeed, your healthcare providerwill instruct youon how to stop milk production.If you are going to breastfeed, your healthcare provider or nurse may help you introduce your baby to your breast and start . [place] babies are usually very alert right after . They are ready to start .Whether or not you are going to breastfeed your baby, your baby will likely be placed [id number] on your chest. This allows your body to help regulate your baby's temperature. It can also start the bonding process. Your immediate recovery After , most women shake and get chills. This is over quickly. Your healthcare provider will watch your temperature and blood pressureuntil they are stable. Sanitary pads absorb the discharge ofyour uterine lining. To ensure that you arent bleeding too much, the pad and the firmness ofyour uterus will be checked. If you had anesthesia, your healthcare provider will watch you closelyuntil you can feel and move your toes. If you have pain, he or she maygive you pain relievers.If you have perineal pain, an ice pack can help. Babys first exam A healthcare provider will examine your babywithin the first 5 minutes after , or after you have had the opportunity to breastfeed your baby. Your babys heart rate, respiration (breathing), muscle tone, reflexes, and color are assessed. Based on the exam, an (activity, pulse, grimace, appearance, respiration) score is given. Your baby may also be bathed, dried, weighed, and measured. Eye drops may be given to prevent infection. ID bracelets are placed around the babys wrist and ankle. [employer] last reviewed this educational content on 08/12/201719999416-4236 The [employer]. All rights reserved. This information is not intended as a substitute for professional medical care. Always follow your healthcare professional's instructions. Patient Education Labor and Childbirth: Preparing to Go Home You may be anxious to go home as soon as possible. Before you and your baby go home, a healthcare provider will make sure that your baby has no health problems. You will also be checked to be sure you are healthy enough to take care of your baby and yourself. Checking babys health A career orientation teacher or other healthcare provider willgive yournewborn acomplete examination. All babies are checked to rule out problems, like a dislocated hip or a heart murmur. A few drops of blood willbe taken from your baby's heel to check for certain diseases. A hepatitis B vaccine may be given. An antibiotic ointment may be put in your baby's eyes. The career orientation teacher will discuss the exam results with you and answer your questions. You may also schedule your baby's first office visit. When youre ready Youre ready to go home when: You can walk to and use the bathroom without help. You have a normal amount of bleeding. You can eat solid food and swallow pain pills. You have adequate pain relief. You have no sign of infection or other health problem, including fever. If you are concerned that you are not ready to be discharged, be sure to discuss these concerns withyour healthcare provider. Taking baby home Most often you and your baby go home together. Your baby is ready to go home when: He or she has no sign of a health problem. He or she has had a hearing screen. He or she has had routine laboratory testing. He or she is eating well. Your 's temperature is normal. A government-approved car seat is properly installed in the car your baby will ride home in. [employer] last reviewed this educational content on 08/12/201719992264-6783 [employer]. All rights reserved. This information is not intended as a substitute for professional medical care. Always follow your healthcare professional's instructions. PRESS OPERATOR ASSISTANT documented in this encounter Progress Notes Lety Monson MD - 07/24/2020 10:15 AM CST ROUTINE VISIT 07/24/2020 10:25 AM SUBJECTIVE Brooklyn Nieves is a 25 year old at 38w1d who presents for routine visit. She has no complaints today; denies contractions, loss of fluid, vaginal bleeding, and signs or symptoms of pre-eclampsia. Good movement. OBJECTIVE BP: (125-142)/(71-79) Temp: [36.9 C (98.4 F)] Temp source: Oral (07/24 1029) Pulse: [99] Resp: [18] SpO2: -- Height: [5' 3" (160 cm)] Weight: [216 lb (98 kg)] BMI (calculated): [38.26] BP 125/71 (BP Location: Left arm, Patient Position: Sitting, BP CUFF SIZE: Adult Large) | Pulse 99| Temp 36.9 C (98.4 F) (Oral) | Resp 18 | Ht 5' 3" (1.6 m) | Wt 216 lb (98 kg) | LMP 10/31/2019 (Exact Date) | BMI 38.26 kg/m FH: 39 cm FHT: 158 Physical Exam: Gen: A&Ox3, NAD CV: RRR Pulm: CTAB Abd: Soft, gravid, NTTP, no rebound or guarding Ext: No calf tenderness : SVE 08/05/ballotable ASSESSMENT: Brooklyn Nieves is a 25 year old at 38w1d who presents for routine visit. PLAN See OB Summary RTC in 4 weeks for PP visit Scribe's Attestation I, Lester M Hawk , am scribing for, and in the presence of, Lety Monson MD who performed the services described here-in. Lester Clinton, July 24, 2020, 10:25 AM Physician's Attestation I have seen and examined the patient and agreed with the note above Lety Monson MD 07/24/2020 11:26 AM documented in this encounter Miscellaneous Notes OB Summary Note - Oz Lester Daley - 07/24/2020 10:15 AM CST Age: [age] year old GA: 38w2d Patient had some additional questions about delivery after visit yesterday. Patient is concerned about having a c section unless medically indicated. Patient is worried she wont be allowed to allow her body to do what it is supposed to do. Advised patient that all patient's are told that there is a risks of a until baby is delivered vaginally. Explained to patient th at a will only occur if it is medically indicated. Explained to patient that it is indicated then a will be performed. Patient asked questions about epidural process and when the catheter will be placed. Advised patient that once she gets the epidural then the harmon catheter will be placed after the epidural is in placed. Advised patient that it is completely up to her when she gets the epidural. Patient understands and agrees. Patient asked if is able to leave and come back to be able to take care of dogs at home. Advised patient that he will be able to do so and will be asked each time if he is exhibiting any COVID symptoms and as long as he is asymptomatic, he can come back. All questions have been answered to patient's satisfaction and patient wants to keep her induction on 07/30/2020 Lesleyibe's Rachelestation Lester Steward am scribing for, and in the presence of, Lety Monson MD who performed the services described here-in. Lester Clitnon, July 25, 2020, 9:43 AM Physician's Attestation I have seen and examined the patient and agreed with the note above Lety Monson MD 07/25/2020 9:50 AM B Summary Note - Lester Clinton - 07/24/2020 10:15 AM CST Age: [age] year old GA: 38w1d Doing well, no complaints Patient reports irregular contractions daily that are worse in the evenings SVE 08/05/otable Patient went to Urgent care 07/23/2020 diagnosed with otitis media patient was prescribed amoxicillin Palpitations -saw cardiology (Dr. Starkey) on 07/08/2020. Had ECHO appointment 07/24/2020; patient canceled as statesthat she feels better now Elective induction scheduled for 07/30/2020 unless clinically indicated otherwise Hx of asthma Hx of pre-eclampsia with last -Not taking low dose ASA anymore -BP elevated on presentation 142/79, recheck 125/71 wnl -PIH precautions given RH negative -Rhogam received on 06/05/2020 Discussed with patient that we recommend covid testing to be done ~ one day prior to scheduled induction/ and she can have one HEALTHY support with her during her delivery if she does not haveCOVID. Also discussed that she and support person need to wear mask the entire inpatient stay. Allquestions were answered. GBS negative on 07/03/2020 Daily kick counts and labor precautions given RTC in 4 weeks for PP visit Scribe's Attestation I, Lester Clinton , alessandro scribing for, and in the presence of, Lety Monson MD who performed the services described here-in. Lester Clinton, July 24, 2020, 10:24 AM Physician's Attestation I have seen and examined the patient and agreed with the note above Lety Monson MD 07/24/2020 11:27 AM documented in this encounter Plan of Treatment Date Type Specialty Care Team Description 07/30/2020 Hospital Encounter Obstetrics Colleen Monson FNP [address] [place], [place] [address] [phone] 08/21/2020 Routine Obstetrics & Monson, Lety Cai MD Visit Gynecology [address] [place] [address] DR. [address] [place], [place] [address] [phone] Health Maintenance Due Date Last Done Comments [...] Name Priority Date/Time Associated Diagnosis Comme nts POCT URINALYSIS W/O Routine 07/24/2020 38 weeks gestation of Results for this SPECIFIC GRAVITY procedure a re in the results section . documented in this encounter Results POCT URINALYSIS W/O SPECIFIC GRAVITY (07/24/2020) Pathologist Sig nature POCT PH U N/A 5 - 8 mg/dl POCT U LEUK EST N/A Negative - Negative POCT U NIT N/A Negative - Negative POCT U PROT Negative Negative - Negative POCT U GLU 1+ Negative - Negative POCT U KETONE N/A Negative - Negative POCT U BLD N/A Negative - Negative Specimen Urine - URINE, CLEAN CATCH documented in this encounter Visit Diagnoses Diagnosis High-risk in third trimester - Primary 38 weeks gestation of state, incidental documented in this encounter Insurance Payer Benefit Plan / Subscriber ID Effective Phone Address T ype Group Dates DUC XAVIER [id number] 2020-Pres [address] Medic aid HEALTHCARE - HEALTHCARE ent [id number] MANAGED MEDICAID [place], MEDICAID [place] documented as of this encounter
--- OUTSIDE RECORDS SUMMARY | 2020-08-08 04:36 | XMS REPORT | Summary of Care ---
:1995 Author Organization [facility] Address [address] [place] [id number] Care Team Providers Name Role Phone Pcp, Patient Does Not Have A Primary Care Provider +[id number] [id number] Reason for Visit Reason Comments ROUTINE VISIT Encounter Details Date Type Department Care Team Description 07/24/2020 Routine [facility] Women's Lety Monson am, MD High-risk in third trimester ( Primary Dx); Visit Healthcare- [address] [place] [address] 38 weeks g estation of [place] [address] [place] [address] [address], [address] [place] [phone] Allergies No Known Allergiesdocumented as of this encounter (statuses as of 07/24/2020) Medications Medication Sig Dispensed Refills Start Date [...] as of this encounter (statuses as of 07/24/2020) Active Problems Problem Noted Date Palpitations 06/19/2020 Obesity (BMI 30-39.9) 06/05/2020 Excessive weight gain during in third trimes ter 06/05/2020 High-risk in third trimester 06/05/2020 History of pre-eclampsia 06/05/2020 Dizziness and giddiness 06/05/2020 Estimated Date of Delivery Comments Yes 08/06/2020 Based on last menstr ual period of 10/31/2019 (Exact Date) documented as of this encounter (statuses as of 07/24/2020) Immunizations Name Administration Dates Next Due Influenza [...] with No / Unsure 07/24/2020 11:25 AM CLIENT ADMINISTRATOR someone who was confirmed or suspected to have Coronavirus / COVID-19? documented as of this encounter Last Filed Vital Signs Vital Sign Reading Time Taken Comments Blood Pressure 125/71 07/24/2020 10:32 AM CLIENT ADMINISTRATOR Pulse 99 07/24/2020 10:29 AM CLIENT ADMINISTRATOR Temperature 36.9 C (98.4 F) 07/24/2020 10:29 AM CLIENT ADMINISTRATOR Respiratory Rate 18 07/24/2020 10:29 AM CLIENT ADMINISTRATOR Oxygen Saturation - - Inhaled Oxygen Concentration - - Weight 98 kg (216 lb) 07/24/2020 10:29 AM CLIENT ADMINISTRATOR Height 160 cm (5' 3") 07/24/2020 10:29 AM CLIENT ADMINISTRATOR Body Mass Index 38.26 07/24/2020 10:29 AM CLIENT ADMINISTRATOR documented in this encounter Patient Instructions Patient [...] ripening. Your healthcare provider may also usea Olivas catheter or a double balloon catheter. He [...] as a few days to give . [employer] last reviewed this educational content on 01/10/202019999762-3031 [employer] All rights reserved. This information is not [...] and the start of the next contraction. [employer] last reviewed this educational content on 02/10/202019997518-7294 [employer] All rights reserved. This information is not [...] But the contractionsare much milder than before. [employer] last reviewed this educational content on 02/10/202019993986-0069 [employer] All rights reserved. This information is not [...] Collette last reviewed this educational content on 08/12/201719993656-1092 [employer] All rights reserved. This information is not [...] baby to your breast and start . [place] babies are usually very alert right after . They are ready to start .Whether or not you are going to breastfeed your baby, your baby will likely be placed [id number] on your chest. This allows your body [...] placed around the babys wrist and ankle. [employer] last reviewed this educational content on 08/12/201719994419-3381 [employer] All rights reserved. This information is not [...] baby and yourself. Checking babys health A credit card specialist or other healthcare provider willgive yournewborn acomplete examination. All babies are checked to rule out problems, like a dislocated hip or a heart murmur. A few drops of blood willbe taken from your baby's heel to check for certain diseases. A hepatitis B vaccine may be given. An antibiotic ointment may be put in your baby's eyes. The credit card specialist will discuss the exam results with you [...] car your baby will ride home in. [employer] last reviewed this educational content on 08/12/201719994569-4289 [employer] All rights reserved. This information is not intended as a substitute for professional medical care. Always follow your healthcare professional's instructions. NT ADMINISTRATOR documented in this encounter Progress Notes Lety [...] OB Summary Note - Lester Clinton - 07/24/2020 10:15 AM CST Age: [age] year old GA: 38w1d Doing well, no complaints Patient reports irregular contractions daily that are worse in the evenings SVE 08/05/ballotable Patient went to Urgent care 07/23/2020 diagnosed [...] RTC in 4 weeks for PP visit Lesleyibiain's RachelestLester Talley am scribing for, and in the presence [...] Encounter Obstetrics Colleen Monson FNP [address] [place], [place] [address] [phone] 08/21/2020 Routine Obstetrics & Lety Monson MD Visit Gynecology [address] [place] [address] DR. Garcia [place], [place] [address] [phone] Health Maintenance Due Date Last Done Comments [...] Address T ype Group Dates DUC XAVIER [id number] 2020-Pres [address] Medic aid [facility] [place] [id number] MANAGED MEDICAID [place], [place]ICAID [place] documented as of this encounter
--- OUTSIDE RECORDS SUMMARY | 2020-08-08 04:36 | XMS REPORT | Summary of Care ---
:1995 Author Organization [facility] Address [address] [place] [id number] Care Team Providers Name Role Phone Pcp, Patient Does Not Have A Primary Care Provider +[id number] 0-0000 Reason for Visit Reason Comments ROUTINE VISIT Encounter Details Date Type Department Care Team Description 07/24/2020 Routine [facility] Women's Lety Monson am, MD High-risk in third trimester ( Primary Dx); Visit Healthcare- [address] [place] [address] 38 weeks g estation of [place] [address] [place] [address] [place] [phone] Allergies No Known Allergiesdocumented as of this [...] with No / Unsure 07/24/2020 11:25 AM AVIATION SAFETY EQUIPMENT TECHNICIAN someone who was confirmed or suspected to have Coronavirus / COVID-19? documented as of this encounter Last Filed Vital Signs Vital Sign Reading Time Taken Comments Blood Pressure 125/71 07/24/2020 10:32 AM AVIATION SAFETY EQUIPMENT TECHNICIAN Pulse 99 07/24/2020 10:29 AM AVIATION SAFETY EQUIPMENT TECHNICIAN Temperature 36.9 C (98.4 F) 07/24/2020 10:29 AM AVIATION SAFETY EQUIPMENT TECHNICIAN Respiratory Rate 18 07/24/2020 10:29 AM AVIATION SAFETY EQUIPMENT TECHNICIAN Oxygen Saturation - - Inhaled Oxygen Concentration - - Weight 98 kg (216 lb) 07/24/2020 10:29 AM AVIATION SAFETY EQUIPMENT TECHNICIAN Height 160 cm (5' 3") 07/24/2020 10:29 AM AVIATION SAFETY EQUIPMENT TECHNICIAN Body Mass Index 38.26 07/24/2020 10:29 AM AVIATION SAFETY EQUIPMENT TECHNICIAN documented in this encounter Patient Instructions [...] as a few days to give . [employer] last reviewed this educational content on 01/10/202019993516-7833 [employer] All rights reserved. This information is not [...] and the start of the next contraction. [employer] last reviewed this educational content on 02/10/202019999339-8718 [employer] All rights reserved. This information is not [...] But the contractionsare much milder than before. [employer] last reviewed this educational content on 02/10/202019999438-7413 [employer] All rights reserved. This information is not [...] Collette last reviewed this educational content on 08/12/201719993757-5435 [employer] All rights reserved. This information is not [...] baby to your breast and start . [place] babies are usually very alert right after . They are ready to start .Whether or not you are going to breastfeed your baby, your baby will likely be placed lkyw-nn-foyz on your chest. This allows your body [...] placed around the babys wrist and ankle. [employer] last reviewed this educational content on 08/12/201719996808-4353 [employer]. All rights reserved. This information is not [...] baby and yourself. Checking babys health A improvement leader or other healthcare provider willgive yournewborn acomplete examination. All babies are checked to rule out problems, like a dislocated hip or a heart murmur. A few drops of blood willbe taken from your baby's heel to check for certain diseases. A hepatitis B vaccine may be given. An antibiotic ointment may be put in your baby's eyes. The improvement leader will discuss the exam results with you [...] car your baby will ride home in. [employer] last reviewed this educational content on 08/12/201719990750-2743 [employer]. All rights reserved. This information is not intended as a substitute for professional medical care. Always follow your healthcare professional's instructions. TION SAFETY EQUIPMENT TECHNICIAN documented in this encounter Progress Notes [...] the services described here-in. Lester Clinton, July 25, 2020, 9:43 AM Physician's Attestation [...] Encounter Obstetrics Colleen Monson FNP [address] [place], [place] [address] [phone] 08/21/2020 Routine Obstetrics & Monson, Lety Cai MD Visit Gynecology [address] [place] [address] DR. Garcia [place], [place] [address] [phone] Health Maintenance Due Date Last Done Comments [...] Address T ype Group Dates DUC XAVIER [id number] 2020-Pres [address]OX Medic aid [place] [id number] MANAGED MEDICAID [place], [place] documented as of this encounter
--- OUTSIDE RECORDS SUMMARY | 2020-08-08 04:37 | XMS REPORT | Summary of Care ---
:1995 Author Organization [facility] - [facility] Address [address] [place] [id number] Care Team Providers Name Role Phone Pcp, Patient Does Not Have A Primary Care Provider +[id number] Reason for Referral (Routine) Status Reason Specialty Diagnoses / Referred By Referred To Procedures Contact Contact New Request OG-OBSTETRICS & Diagnoses 39 weeks gestation of Encounter for planned induction of labor Obesity (BMI 30-39.9) Excessive weight gain during in third trimester High-risk in third trimester Vacuum-assisted vaginal delivery Lety Monson, GYNECOLOGY History of pre-e clampsia Dizziness and giddiness MD Procedures Discharge Follow-Up: Specialty Service OG-OBSTETRICS & GYNECOLOGY; Other - See Comment [address] [place] [address] [address] [place] [address] Reason for Visit Auth/Cert Status Reason Specialty Diagnoses / Procedures Referred By C ontact Referred To Contact Obstetrics Procedures [facility] Labor And induction Delivery [address] [place] [address] [phone] Phone: Fax: Encounter Details Date Type Department Care Team Description 07/30/2020 - Hospital Encounter [facility] Labor and Lety Monson, 39 wee ks gestation 08/01/2020 Delivery Unit MD of [address] [place] [address] [place] [address] [address] [place], [place] [id number] Allergies No Known Allergiesdocumented as of this encounter (statuses as of 08/01/2020) Medications Medication Sig Dispensed Refills Start Date End Date Status vitamin Take 1 tablet 100 tablet 3 07/31/2020 Active w/FA by mouth tabletIndications: daily. 39 weeks gestation of , Encounter for planned induction of labor, Obesity (BMI 30-39.9), Excessive weight gain during in third trimester, High-risk in third trimester, Vacuum-assisted vaginal delivery, History of pre-eclampsia, Dizziness and giddiness docusate calcium Take 1 60 capsule 1 07/31/2020 A ctive 240 mg capsule by capsuleIndications: mouth once 39 weeks gestation daily as of , needed for Encounter for Constipation. planned induction of labor, Obesity (BMI 30-39.9), Excessive weight gain during in third trimester, High-risk in third trimester, Vacuum-assisted vaginal delivery, History of pre-eclampsia, Dizziness and giddiness ferrous sulfate 325 Take 1 tablet 60 tablet 2 07/31/2020 Active mg (65 mg iron) by mouth 2 tabletIndications: (two) times 39 weeks gestation daily. of , Encounter for planned induction of labor, Obesity (BMI 30-39.9), Excessive weight gain during in third trimester, High-risk in third trimester, Vacuum-assisted vaginal delivery, History of pre-eclampsia, Dizziness and giddiness ibuprofen 600 mg Take 1 tablet 30 tablet 1 07/31/2020 Active tabletIndications: by mouth 39 weeks gestation every 6 (six) of , hours as Encounter for needed planned induction (Pain). Take of labor, Obesity with food or (BMI 30-39.9), milk. Excessive weight gain during in third trimester, High-risk in third trimester, Vacuum-assisted vaginal delivery, History of pre-eclampsia, Dizziness and giddiness acetaminophen Take by 0 07/31/2020 Disco ntinued (TYLENOL ORAL) mouth. vit Take by 0 07/31/2020 Discon tinued calc,iron,folic mouth. ( VITAMIN ORAL) ferrous sulfate Take 1 tablet 60 tablet 0 07/08/2020 Discontinued (IRON, FERROUS by mouth 2 SULFATE,) 325 mg (two) times (65 mg iron) daily. tabletIndications: Anemia of mother in , antepartum amoxicillin 500 mg Take 1 tablet 14 tablet 0 07/23/20202020 Discontinued tabletIndications: by mouth 2 Acute otitis media, (two) times unspecified otitis daily for 7 media type days. documented as of this encounter (statuses as of 08/01/2020) Active Problems Problem Noted Date Vacuum-assisted vaginal delivery 07/30/2020 39 weeks gestation of 07/29/2020 Encounter for planned induction of labor 07/29/2020 Palpitations 06/19/2020 Obesity (BMI 30-39.9) 06/05/2020 Excessive weight gain during in third trimes ter 06/05/2020 High-risk in third trimester 06/05/2020 History of pre-eclampsia 06/05/2020 Dizziness and giddiness 06/05/2020 Comments Yes documented as of this encounter (statuses as of 08/01/2020) Immunizations Name Administration Dates Next Due Influenza Virus Vaccine Quad .5 mL IM 6+ MO 06/05/2020 Rho (d) Immune Globulin 08/01/2020, 06/05/2020 TDAP 06/05/2020 documented as of this [...] drinks on one occasion? Ne rabia 06/05/2020 Comments Yes Sex Assigned at Date Recorded Not on file COVID-19 Exposure Response Date Recorded In the last month, have you been in contact with No / Unsure 07/30/2020 4:45 AM TECHNOLOGIST DEVELOPMENT someone who was confirmed or suspected to have Coronavirus / COVID-19? documented as of this encounter Last Filed Vital Signs Vital Sign Reading Time Taken Comments Blood Pressure 139/84 08/01/2020 4:00 AM TECHNOLOGIST DEVELOPMENT Pulse 86 08/01/2020 4:00 AM TECHNOLOGIST DEVELOPMENT Temperature 36.8 C (98.3 F) 08/01/2020 4:00 AM TECHNOLOGIST DEVELOPMENT Respiratory Rate 18 08/01/2020 4:00 AM TECHNOLOGIST DEVELOPMENT Oxygen Saturation 100% 07/30/2020 2:15 PM TECHNOLOGIST DEVELOPMENT Inhaled Oxygen Concentration - - Weight 97.4 kg (214 lb 12.8 oz) 07/30/2020 4:45 AM TECHNOLOGIST DEVELOPMENT Height 160 cm (5' 3") 07/30/2020 4:45 AM TECHNOLOGIST DEVELOPMENT Body Mass Index 38.05 07/30/2020 4:45 AM TECHNOLOGIST DEVELOPMENT documented in this encounter Discharge Instructions Larisa Godoy RN - 08/01/2020Multidisciplinary Discharge Instructions (may include diet, dressing changes, activity limits, written materials given to patient: DIET: Eat a well balanced diet; drink 6-8 glasses of fluids daily; eat fruits and green, leafy vegetables. DAILY ACTIVITIES: 1. As much as you feel able to do. Rest when you are tired. 2. Limitations: Specify; No heavy lifting other than your baby for 4 weeks if you had surgery. TREATMENT AT HOME 1. Use a well-fitting bra to prevent breast engorgement 2. Resume intercourse as instructed by your physician. 3. Do not use douches or tampons for four weeks. 4. To help prevent urinary tract infection; after each urination and bowel movement, wipe and dry from front to back and change tal pad. 5. Follow discharge instructions regarding baby care. 6. Follow family planning instructions. IMMEDIATE TREATMENT - Call Clinic or Your Physician 1. Increase in pain and tenderness of uterus. 2. Increased vaginal bleeding (bright red blood which soaks 2 pads in 1 hour or pass large clots). 3. Foul smelling vaginal discharge. 4. Burning in the tube that empties the urine from the bladder. 5. Painful breast engorgement or cracked nipples. 6. Pain, discharges, or gaping incision. 7. Temperature greater than 38.0C or 100.4F 8. Pain and tenderness of calf or thigh muscles. 9. No bowel movements in 4 days. For Problems or Questions Call: Dr. Monson [phone] [facility] L&D [phone] Emergency: Go to the closest emergency room or call 911 documented in this encounter Progress Notes Lety Monson MD - 07/31/2020 8:17 AM CST PROGRESS NOTE Subjective: Patient is a 25 year old, S/P , post day 1. She complains of nothing. Objective: Vital Signs: BP: (95-141)/(46-96) Temp: [36.5 C (97.7 F)-36.9 C (98.5 F)] Temp source: Oral (07/31 0400) Pulse: [67-108] Resp: [18-20] SpO2: [98 %-100 %] Height: -- Weight: -- BMI (calculated): -- Physical Exam: General: NAD Lungs: clear to auscultation bilaterally Cardiology: regular rate and rhythm Abdomen: Soft, NTTP, fundus firm and below umbilicus Extremities: no clubbing, cyanosis, or edema Current Medications: Current Facility-Administered Medications Medication Dose Route Frequency Last Rate Last Admin acetaminophen (TYLENOL) tablet 650 mg 650 mg Oral Q6HPRN benzocaine-menthol (DERMOPLAST) 20-0.5 % topical spray Topical PRN Given at 07/30/20 181 diphenhydrAMINE (BENADRYL) tablet 25 mg 25 mg Oral Q6HPRN diphenhydrAMINE-0.9 % sod.chlr (BENADRYL) 25 mg/50 mL piggyback 25 mg 25 mg IV Piggyback Q6HPRN docusate calcium (SURFAK) capsule 240 mg 240 mg Oral QDAILYPRN HYDROcodone-acetaminophen (NORCO 5) 5-325 mg tablet 1 tablet 1 tablet Oral Q6HPRN 1 tablet at07/31/20 0407 ibuprofen (IBU) tablet 600 mg 600 mg Oral Q6HPRN 600 mg at 07/31/20 0726 LR 1000 mL + oxytocin 20 units IV Solution IV Infusion CONTINUOUS 125 mL/hr at 07/30/20 1623 New Bag at 07/30/20 1623 magnesium hydroxide (MILK OF MAGNESIA) 400 mg/5 mL suspension 30 mL 30 mL Oral QDAILYPRN ondansetron (ZOFRAN (PF)) injection 4 mg 4 mg Slow IV Push Q8HPRN oxytocin (PITOCIN) injection 20 Units 20 Units IV Piggyback CONTINUOUS Dose/Rate Verify at 07/30/20 1520 vitamin w/FA (PRENATABS RX) tablet 1 tablet 1 tablet Oral DAILY rho(D) immune globulin (RHOGAM) syringe 300 mcg 300 mcg Intramuscular ONCE simethicone (GAS RELIEF (SIMETHICONE)) chewable tablet 160 mg 160 mg Oral PC+HSPRN witch Daniel (TUCKS) 50 % topical pad Topical Q4HPRN Labs: CBC BMP MAGNESIUM WBC (10*3/L) Date Value 07/31/2020 12.99 (H) No results found for: NA No results found for: MG PLT (10*3/L) Date Value 07/31/2020 161 (L) No results found for: K HGB (g/dL) Date Value 07/31/2020 8.8 (L) No results found for: CA HCT (%) Date Value 07/31/2020 27.9 (L) No results found for: CL TYPE & RH No results found for: BUN ABO & RH (no units) Date Value 07/30/2020 B Negative No results found for: CREAT Type & Screen Rubella Varicella ABO & RH (no units) Date Value 07/30/2020 B Negative No results found for: RUBG No results found for: VZVG No results found for: TSABINT Hep B HIV Syphilis No results found for: HBS No results found for: HIV No results found for: SYPG Group B Strep Chlamydia No results found for: CGBS C. trachomatis Nucleic Acid (no units) Date Value 07/03/2020 Negative Assessment/Plan: PPD#1 - doing well. Continue routine care - Anticipate discharge home later this evening or tomorrow pending baby if remains stable Lety Monson MD 07/31/2020 11:15 AM documented in this encounter H&P Notes Lety Monson MD - 07/30/2020 8:05 AM CST TRIAGE HISTORY & PHYSICAL IDENTIFYING DATA Brooklyn Nieves is 25 year old, /White, 39w0d, female with YANIV 08/06/2020, by Last Menstrual Period. : 1995 Primary Care Physician: PATIENT DOES NOT HAVE A PCP CHIEF COMPLAINT Induction at 39 wks HISTORY OF PRESENT ILLNESS Brooklyn Nieves is a 25 year old female @ 39w0d +FM. No VB, LOF, or CTX. No pre-eclampsia sx or other complaints. PAST OBSTETRIC HISTORY OB History Para Term AB Living 2 1 1 1 SAB TAB Ectopic Multiple Live Births 1 # Outcome Date GA Lbr Martínez/2nd Weight Sex Delivery Anes PTL Lv 2 Current 1 Term 11/02/17 37w0d 3289 g F NORMAL SPONT CARLOTA Complications: PIH ( induced hypertension) PAST MEDICAL HISTORY Problem list: Patient Active Problem List Diagnosis Date Noted 39 weeks gestation of 07/29/2020 Encounter for planned induction of labor 07/29/2020 Palpitations 06/19/2020 Obesity (BMI 30-39.9) 06/05/2020 Excessive weight gain during in third trimester 06/05/2020 High-risk in third trimester 06/05/2020 History of pre-eclampsia 06/05/2020 Dizziness and giddiness 06/05/2020 Operations: No past surgical history on file. Past Medical History: Diagnosis Date Asthma CURRENT HEALTH STATUS Medications: Current Facility-Administered Medications Medication Dose Route Frequency Last Rate Last Admin D5W-LR IV infusion 1,000 mL 1,000 mL IV Infusion CONTINUOUS 125 mL/hr at 07/30/20 0531 1,000 mLat 07/30/20 0531 FENTanyl PF (SUBLIMAZE (PF)) injection 100 mcg 100 mcg Slow IV Push Q1HPRN lactated ringers IV infusion 500 mL 500 mL IV Infusion ONCE lactated ringers IV infusion 500 mL 500 mL IV Infusion PRN - SEE INSTRUCTIONS lactated ringers IV infusion 500 mL 500 mL IV Infusion PRN - SEE INSTRUCTIONS lidocaine 1% (PF) (XYLOCAINE) injection 0.3 mL 0.3 mL Infiltration PRN - SEE INSTRUCTIONS LR 1000 mL + oxytocin 20 units IV Solution 2-40 jose-units/min IV Infusion TITRATE 18 mL/hr at07/30/20 0732 6 jose-units/min at 07/30/20 0732 proMETHazine (PHENERGAN) 25 mg in NaCl 0.9% (NS) 50 mL IV piggyback 25 mg IV Piggyback Q4HPRN sodium citrate-citric acid (BICITRA) 500-334 mg/5 mL solution 30 mL 30 mL Oral PRE-PROCEDURE ONCE sodium citrate-citric acid (BICITRA) 500-334 mg/5 mL solution 30 mL 30 mL Oral PRE-PROCEDURE ONCE Allergies and drug reactions: Patient has no known allergies. HOME MEDICATIONS Medications Prior to Admission Medication Sig Dispense Refill Last Dose amoxicillin 500 mg tablet Take 1 tablet by mouth 2 (two) times daily for 7 days. 14 tablet 0 Taking ferrous sulfate (IRON, FERROUS SULFATE,) 325 mg (65 mg iron) tablet Take 1 tablet by mouth 2 (two) times daily. 60 tablet 0 Taking acetaminophen (TYLENOL ORAL) Take by mouth. prn vit calc,iron,folic ( VITAMIN ORAL) Take by mouth. Taking SOCIAL HISTORY Tobacco History: Social History Tobacco Use Smoking Status Never Smoker Smokeless Tobacco Never Used Drug History: Social History Substance and Sexual Activity Drug Use Never Alcohol History: Social History Substance and Sexual Activity Alcohol Use Never Frequency: Never Binge frequency: Never FAMILY HISTORY Family History Problem Relation Age of Onset Anxiety Mother Depression Mother Mental illness Father Lung Cancer Paternal Grandmother REVIEW OF SYSTEMS General: negative Constitutional: negative Eyes: negative ENT/Mouth: negative Cardiovascular: negative Respiratory: negative Gastrointestinal:negative Genitourinary: negative Musculoskeletal: negative Skin/breast: negative Neurological: negative Psychiatric: negative Endocrine: negative Hemat/Lymph: negative Allergic/Immuno:none VITAL SIGNS BP: (137)/(78) Temp: [36.8 C (98.3 F)] Temp source: -- Pulse: [100] Resp: [18] SpO2: [99 %] Height: [160 cm (5' 3")] Weight: [97.4 kg (214 lb 12.8 oz)] BMI (calculated): [38.05] PHYSICAL EXAMINATIONS Gen: alert and oriented, well appearing, no distress CV: RRR, normal S1/S2, no m/r/g Resp: normal work of breathing, lungs CTAB Abd: gravid, soft, NTTP Ext: no calf tenderness or edema : SVE 1/25/high, AROM (clear without complications) REVIEW OF LABORATORY, PATHOLOGY, AND RADIOLOGY DATA Lab results: Type & Screen HIV Hep B Syphilis Chlamydia ABO & RH Date Value Ref Range Status 07/30/2020 B Negative Final Comment: Performed at [facility] Laboratory Services - [facility] Blood Bank [address] [place] [phone] Toll Free: [phone] CLIA No. [id number] No results found for: HIVMULTIPLEX No components found for: HBSHBSAG No results found for: SYPIGG C. trachomatis Nucleic Acid Date Value Ref Range Status 07/03/2020 Negative Negative Final IAT Date Value Ref Range Status 07/30/2020 Negative Final Comment: Performed at [facility] Laboratory Services - [facility] Blood [facility] [address] [place] [phone] Toll Free: [phone] CLIA No. [id number] Varicella Rubella Glucose Group B Strep CBC No results found for: VZVIGG No results found for: RUBG GLUC 1 HR Date Value Ref Range Status 06/12/2020 99 (L) 120 - 170 mg/dL Final No results found for: CGBS HGB Date Value Ref Range Status 07/30/2020 11.0 (L) 11.6 - 15.0 g/dL Final HCT Date Value Ref Range Status 07/30/2020 33.7 (L) 35.7 - 45.2 % Final PLT Date Value Ref Range Status 07/30/2020 165 (L) 166 - 358 10*3/L Final Active Hospital Problems Diagnosis Date Noted 39 weeks gestation of 07/29/2020 Encounter for planned induction of labor 07/29/2020 High-risk in third trimester 06/05/2020 Excessive weight gain during in third trimester 06/05/2020 Obesity (BMI 30-39.9) 06/05/2020 Resolved Hospital Problems No resolved problems to display. Present on Admission: High-risk in third trimester 39 weeks gestation of Encounter for planned induction of labor Excessive weight gain during in third trimester Obesity (BMI 30-39.9) ASSESSMENT AND PLAN Brooklyn Nieves is a 25 year old female @ 39w0d here for an elective induction. Induction - s/p AROM. Pit per protocol - Cephalic presentation confirmed - COVID test neg - GBS neg - Andrew 7 lbs 14 oz Body mass index is 38.05 kg/m. PVT of Dr. Monson, please see OB Summary for more details Lety Monson MD 07/30/2020 8:06 AM documented in this encounter Miscellaneous Notes Care Plan - Kathleen Gaming RN - 07/31/2020 7:25 AM TECHNOLOGIST DEVELOPMENT Problem: Pain Goal: Control of pain at or below patient's documented comfort goal Outcome: Progressing as expected Problem: Discharge Planning - Goal: Absence of venous thromboembolism Outcome: Progressing as expected Goal: Adequate for discharge Outcome: Progressing as expected Goal: Mood stable Outcome: Progressing as expected Problem: Discharge Planning - Goal: Absence of venous thromboembolism Outcome: Progressing as expected Goal: Adequate for discharge Outcome: Progressing as expected Goal: Mood stable Outcome: Progressing as expected are Plan - Jessica Saenz RN - 07/31/2020 5:37 AM TECHNOLOGIST DEVELOPMENT Problem: Pain Goal: Control of pain at or below patient's documented comfort goal Outcome: Progressing as expected Problem: Discharge Planning - Goal: Absence of venous thromboembolism Outcome: Progressing as expected Goal: Adequate for discharge Outcome: Progressing as expected Goal: Mood stable Outcome: Progressing as expected Problem: Discharge Planning - Goal: Absence of venous thromboembolism Outcome: Progressing as expected Goal: Adequate for discharge Outcome: Progressing as expected Goal: Mood stable Outcome: Progressing as expected NOLOGIST DEVELOPMENT L&D Delivery Note - Lety Monson MD - 07/30/2020 3:59 PM CSTDELIVERY BY VACUUM-ASSISTED VAGINAL DELIVERY Delivery Date: 07/30/2020 Delivery Time: 3:07 PM Delivery Summary Brooklyn Nieves is a 25 year old female @ 39w0d. complicated by excessive weight gain and Body mass index is 38.05 kg/m. The patient was admitted to the Labor & Delivery unit for induction at 39 weeks. Delivery Physician: Lety Monson MD Intrapartum Anesthesia/Analgesia: Epidural Mode of Delivery: Delivery of stahl fetus with cephalic presentation Fetus Mode of Delivery: Delivery of stahl fetus with cephalic presentation Delivery: Vacuum Delivery Indication for OVD: maternal fatigue from pushing and low assisted delivery Estimated weight: 7 # 14 oz Head station: Low Asynclitism: (not recorded) Application of Vacuum: Midposition - Kiwi vacuum cup was applied to head between the 2 fontanelle and over the midline suture. Digital exam was performed to confirm no involvment of cervix or vaginal sidewall within the vacuum. Then vacuum was generated from hand pump until sagar was in upper green zone. Traction: OA Delivery - Vacuum traction was initially applied downward for lexion motion followed by slow elevation for the head extension. The perineum was pushed with towel-draped hand as the head and mouth was delivered with maternal pushing effort. Upon delivery of the head, vacuum suction was released andmoved from application. Number of tractions with contractions: 4. Vacuum was deflated after each contraction. Number of pop-offs: 1 Head Delivery: As the head crowned and distended the perineum, no episiotomy was performed. A blue towel was used to protect the perineum as the head crowned and delivered. The other hand was used to exert pressureon the occiput to control the delivery of the head. The perineum was pushed with a towel-draped handas the head and mouth was delivered over the perineum. Vaginal delivery of head with cephalicposition, occipital anterior. The head was allowed to rotate externally to achieve natural body posture. Examination of neck revealed no umbilical cord. The shoulder was delivered by gentle downwardtraction applied to head and downward traction for the delivery of anterior shoulder. This was followed by upward traction with delivery of posterior shoulder and body. After the delivery of , bulb suction was performed from ororpharynx and nostril with removal of clear amniotic fluid. A normal, male was delivered. The umbilical cord was milked towards the fetus, clamped, cut and the was handed off the field to the circulating nurse. The pediatricians were at the stand to evaluate the new born. Placenta Placenta was delivered spontaneously while the abdominal hand lifted the uterus cephalad and other hand keeping the umbilical cord slightly taut. Laceration: First degree midline perineal laceration Laceration Repair: Minor - lacerations (perineum, sidewall, labial, vaginal floor and/or periurethral) were closed with continuous sutures. . Fourth Stage Fourth stage of labor was managed by uterine massage with abdominal hand and infusion 40 units of pitocin mixed with intravenous fluid. QBL: 598 ml Complications: None Apgars: 8/9 Weight: 3770 grams Lety Monson MD 07/30/2020 7:25 PM are Plan - Jessica Saenz RN - 07/30/2020 7:23 AM TECHNOLOGIST DEVELOPMENT Problem: Intrapartum process (including labor pain) Goal: Absence of or reduction of complications of labor Outcome: Progressing as expected Goal: Able to cope with pain Outcome: Progressing as expected Goal: Adequate to move to next level of care Outcome: Progressing as expected Goal: Reduction in pain sensation Outcome: Progressing as expected Problem: Pain Goal: Control of pain at or below patient's documented comfort goal Outcome: Progressing as expected NOLOGIST DEVELOPMENT documented in this encounter Plan of Treatment Date Type Specialty Care Team Description 08/21/2020 Routine Obstetrics & Monson, Lety Cai MD Visit Gynecology [address] [place] [address] DR. Garcia [place], [place] [address] [phone] Health Maintenance Due Date Last Done Comments [...] Procedure Name Priority Date/Time Associated Comments Diagnosis CBC WITH DIFF Routine 07/31/2020 3:56 Results fo r this AM TECHNOLOGIST DEVELOPMENT procedure are i n the results section. VENOUS CORD GAS Routine 07/30/2020 3:25 Results for this PM TECHNOLOGIST DEVELOPMENT procedure are i n the results section. ARTERIAL CORD GAS Routine 07/30/2020 3:25 Result s for this PM TECHNOLOGIST DEVELOPMENT procedure are i n the results section. RHO (D) IMMUNE GLOBULIN Routine 07/30/2020 5:00 Results for this AM TECHNOLOGIST DEVELOPMENT procedure are i n the results section. HB ABO GROUPING KEVIN 07/30/2020 5:00 Results for this AM TECHNOLOGIST DEVELOPMENT procedure are i n the results section. HB -MATERNAL Routine 07/30/2020 5:00 Result s for this HEMORRHAGE SCREEN AM TECHNOLOGIST DEVELOPMENT procedure are in the results section. HIV 1/2 AG-AB WITH Routine 07/30/2020 4:45 Resul ts for this REFLEX AM TECHNOLOGIST DEVELOPMENT procedure are i n the results section. ADC OR MARU ONLY - KEVIN 07/30/2020 4:45 Re sults for this RPR AM TECHNOLOGIST DEVELOPMENT procedure are i n the results section. HCV ANTIBODY Add-on 07/30/2020 4:45 Results for this AM TECHNOLOGIST DEVELOPMENT procedure are i n the results section. HEPATITIS B SURFACE KEVIN 07/30/2020 4:45 Resu lts for this ANTIGEN AM TECHNOLOGIST DEVELOPMENT procedure are i n the results section. CBC WITH DIFF KEVIN 07/30/2020 4:45 Results fo r this AM TECHNOLOGIST DEVELOPMENT procedure are i n the results section. LAB ONLY COVID Routine 07/30/2020 4:44 Results f or this INTERPRETATION AM TECHNOLOGIST DEVELOPMENT procedure are in the results section. COVID-19 (ID NOW RAPID Routine 07/30/2020 4:44 R esults for this TESTING) AM TECHNOLOGIST DEVELOPMENT procedure are i n the results section. NOTICE OF PRIVACY Routine 07/24/2020 11:32 PRACTICES AM TECHNOLOGIST DEVELOPMENT CONSENT/REFUSAL FOR Routine 07/24/2020 11:31 DIAGNOSIS AND TREATMENT AM TECHNOLOGIST DEVELOPMENT ASSIGNMENT OF BENEFITS Routine 07/24/2020 11:31 AM TECHNOLOGIST DEVELOPMENT documented in this encounter Results CBC with Differential (07/31/2020 3:56 AM TECHNOLOGIST DEVELOPMENT) Pathologist Sig nature WBC 12.99 (H) 4.30 - 11.10 [facility] 10*3/L [facility] RBC 3.22 (L) 3.93 - 5.25 [facility] 10*6/L [facility] HGB 8.8 (L) 11.6 - 15.0 [facility] g/dL [facility] HCT 27.9 (L) 35.7 - 45.2 % [facility] MCV 86.6 80.6 - 95.5 fL [facility] MCH 27.3 25.9 - 32.8 pg [facility] MCHC 31.5 (L) 31.6 - 35.1 [facility] [facility] g/dL [facility] RDW-SD 51.5 (H) 39.0 - 49.9 fL [facility] RDW-CV 16.5 (H) 12.0 - 15.5 % [facility] PLT 161 (L) 166 - 358 [facility] 10*3/L HOSPITAL [facility] MPV 11.4 9.5 - 12.9 fL [facility] NRBC/100 WBC 0.0 0.0 - 10.0 /100 [facility] WBCs [facility] NRBC x10^3 <0.01 10*3/L [facility] GRAN MAT (NEUT) % 73.9 % [facility] IMM GRAN % 2.20 % [facility] LYMPH % 16.0 % [facility] MONO % 7.2 % [facility] EOS % 0.5 % [facility] BASO % 0.2 % [facility] GRAN MAT x10^3(ANC) 9.61 (H) 1.88 - 7.09 [facility] 10*3/uL [facility] IMM GRAN x10^3 0.29 (H) 0.00 - 0.06 [facility] 10*3/uL [facility] LYMPH x10^3 2.08 1.32 - 3.29 [facility] 10*3/uL [facility] MONO x10^3 0.93 (H) 0.33 - 0.92 [facility] 10*3/uL [facility] EOS x10^3 0.06 0.03 - 0.39 [facility] 10*3/uL [facility] BASO x10^3 <0.03 0.01 - 0.07 [facility] 103/uL [facility] REACT LYMPHS Rare [facility] Specimen Blood - VENOUS Performing Organization Address City/[facility]/Zipcode Phone Number [facility] CLIA: [id number] [place] [address] Venous Cord Gas (07/30/2020 3:25 PM TECHNOLOGIST DEVELOPMENT) Pathologist Sig nature VENOUS BASE EXCESS, -6.4 mEq/L [facility] VENOUS PH, CORD 7.35 7.25 - 7.45 [facility] VENOUS PC02, CORD 33 27 - 49 mmHg [facility] VENOUS PO2, CORD 30 17 - 41 mmHg [facility] VENOUS BICARBONATE, 18 12 - 29 mEq/L [facility] Specimen Blood - VENOUS Performing Organization Address City/[facility]/Zipcode Phone Number [facility] CLIA: [id number] [place] [address] [place] [address] Arterial Cord Gas (07/30/2020 3:25 PM TECHNOLOGIST DEVELOPMENT) [facility] BASE EXCESS, CORD -9.6 mEq/L [facility] AC PH, CORD (BEAKER) 7.22 7.18 - 7.38 [facility] PC02, CORD 45 32 - 66 mmHg [facility] PO2, CORD 37 (H) 10 - 30 mmHg [facility] BICARBONATE, CORD 18 17 - 27 mEq/L [facility] Specimen Blood - VENOUS Performing Organization Address [facility] Phone Number [facility] CLIA: [id number] [place] [address] [place] [address] MATERNAL HEMO SCREEN (07/30/2020 5:00 AM TECHNOLOGIST DEVELOPMENT) [facility] RHIG REQUIRED? 1 Syringe LAB Comment: Performed at [facility] Laboratory [facility] Blood Bank [address] [place], [place] [address] Toll Free: [phone] CLIA No. [id number] SCREEN Negative LAB Comment: Performed at [facility] Laboratory [facility] Blood Bank [address] [place], [place] [id number] Toll Free: [phone] CLIA No. [id number] Specimen Blood - VENOUS Performing Organization Address [facility] Phone Number BLD LAB RHO (D) IMMUNE GLOBULIN (07/30/2020 5:00 AM TECHNOLOGIST DEVELOPMENT) [facility] RHIG CANDIDATE? Yes- see comment (A) LAB Comment: Patient is a candidate for RhIg- Patient is Rh Negativ e and baby is Rh Positive. Performed at [facility] Laboratory [facility] Blood Bank [address] [place], [place] [id number] Toll Free: [phone] CLIA No. [id number] Specimen Blood - VENOUS Performing Organization Address [facility] Phone Number BLD LAB Type and Screen - ONCE KEVIN (07/30/2020 5:00 AM TECHNOLOGIST DEVELOPMENT) [facility] ABO & RH B Negative LAB Comment: Performed at [facility] Laboratory Services - [facility] Blood Bank [address] [place] [phone] Toll Free: [phone] CLIA No. [id number] IAT Negative LAB Comment: Performed at [facility] Laboratory Services - [facility] Blood Bank [address] [place] [phone] Toll Free: [phone] CLIA No. [id number] Specimen Blood - VENOUS Performing Organization Address City/State/Zipcode Phone Number D LAB HCV ANTIBODY (07/30/2020 4:45 AM TECHNOLOGIST DEVELOPMENT) Pathologist Sig [facility] HCV Ab Negative [facility] HCV Semi-Quantitative 0.01 [facility] SERVICES Specimen Blood - VENOUS Performing Organization Address City/[facility] Phone Number [facility] CLIA: [id number] [place], [place] [address] [address] [place] [address] HIV 1/2 AG-AB WITH REFLEX (07/30/2020 4:45 AM TECHNOLOGIST DEVELOPMENT) [facility] HIV 1/2 Ag-Ab with Negative Negative [facility] Reflex [facility] HIV Semi-quantitative 0.07 [facility] Specimen Blood - VENOUS Narrative Performed At Non-reactive for HIV-1 antigen and HIV-1/HIV-2 [facility] antibodies. No laboratory evidence of HIV infection. Repeat in 2-4 weeks if acute HIV infection is suspected. Performing Organization Address City/[facility]/Zipcode Phone Number [facility] CLIA: [id number] [place] [address] [place] [address] CBC with Differential (07/30/2020 4:45 AM TECHNOLOGIST DEVELOPMENT) Pathologist Sig [facility] WBC 12.72 (H) 4.30 - 11.10 [facility] 10*3/L [facility] RBC 3.91 (L) 3.93 - 5.25 [facility] 10*6/L [facility] HGB 11.0 (L) 11.6 - 15.0 [facility] g/dL [facility] HCT 33.7 (L) 35.7 - 45.2 % [facility] MCV 86.2 80.6 - 95.5 fL [facility] MCH 28.1 25.9 - 32.8 pg [facility] MCHC 32.6 31.6 - 35.1 [facility] g/dL [facility] RDW-SD 50.9 (H) 39.0 - 49.9 fL [facility] RDW-CV 16.4 (H) 12.0 - 15.5 % [facility] PLT 165 (L) 166 - 358 [facility] 10*3/L [facility] MPV 11.3 9.5 - 12.9 fL [facility] NRBC/100 WBC 0.0 0.0 - 10.0 /100 [facility] WBCs [facility] NRBC x10^3 <0.01 10*3/L [facility] GRAN MAT (NEUT) % 77.8 % [facility] IMM GRAN % 1.90 % [facility] LYMPH % 14.3 % [facility] MONO % 5.5 % [facility] EOS % 0.3 % [facility] BASO % 0.2 % [facility] GRAN MAT x10^3(ANC) 9.89 (H) 1.88 - 7.09 [facility] 10*3/uL [facility] IMM GRAN x10^3 0.24 (H) 0.00 - 0.06 [facility] 10*3/uL [facility] LYMPH x10^3 1.82 1.32 - 3.29 [facility] 10*3/uL [facility] MONO x10^3 0.70 0.33 - 0.92 [facility] 10*3/uL [facility] EOS x10^3 0.04 0.03 - 0.39 [facility] 10*3/uL [facility] BASO x10^3 0.03 0.01 - 0.07 [facility] 10*3/uL [facility] Specimen Blood - VENOUS Performing Organization Address City/State/Zipcode Phone Number [facility] CLIA: [id number] [place] [address] ADC OR MARU ONLY - RPR (07/30/2020 4:45 AM TECHNOLOGIST DEVELOPMENT) Pathologist Sig nature RPR (Qualitative) Nonreactive Nonreactive [facility] Specimen Blood - VENOUS Performing Organization Address City/[facility]/Zipcode Phone Number [facility] CLIA: [id number] [place] [address] Hepatitis B Surface Antigen (07/30/2020 4:45 AM TECHNOLOGIST DEVELOPMENT) Pathologist Sig jaziel HBsAg Negative Negative [facility] HBsAg 0.05 [facility] Semi-Quantitative SERVICES Specimen Blood - VENOUS Performing Organization Address City/[facility]/Zipcode Phone Number [facility] CLIA: [id number] [place] [address] [place] [address] LAB ONLY COVID INTERPRETATION (07/30/2020 4:44 AM TECHNOLOGIST DEVELOPMENT) COVID DMT Interpretation/Recommendations: [facility] Interpretation SERVICES Molecular NAAT Tests for Active Infection with the ALFRED S-CoV-2 Virus: This result indicates that t he patient has tested negative on one occasion for the SARS-CoV-2 virus that causes COVID-19 illness. This most likely indicates that the patient does not have an active infe ction with the SARS-CoV-2 vi lu. However, infection is not completely ruled out as the false negative rate for molecular NAAT testing using a nasopharyngeal sample can be up to 30%, mostly dependent on the timing of sample collect ion in relation to illness onset and any deficiencies in sampling techniques. If the patient has symptoms concerning for COVID-19 illness, a repeat NAAT test (PCR, Rapid ID N ow, etc.) should be performe d, at which time the SARS-CoV-2 virus - if present - may have reached a detectable viral load (usually peaking by the end of the first week of symptoms). Tests for IgM and/or IgG Antibodies to SARS-CoV-2 Viru s: Testing for IgM and IgG anti bodies 1-3 weeks after illness onset will indicate whether the patient has produced antibodies to the virus. At this time, it is not known if the production of antibodies - s pecifically IgG antibodies - indicates whether the patient is immune to future infections with the SARS-CoV-2 virus. Interpretation Result Comments: These interpretation comment s are based upon all COVID-19 testing the patient has had at [facility], including molecular NAAT testing (more commonly known as PCR testing and Rapid ID Now testing) and antibody testing. It does not take i nto account any testing that a patient has had outside of the [facility] medical record. COVID Results SARS-CoV-2 Rapid ID NOW (no units) [facility] Date Value SERVICES 07/30/2020 Not Detected Specimen Swab - NASOPHARYNGEAL SWAB Performing Organization Address City/[facility]/Zipcode Phone Number [facility] CLIA: [id number] [place] [address] [place] [address] COVID-19 (ID NOW RAPID TESTING) (07/30/2020 4:44 AM TECHNOLOGIST DEVELOPMENT) Pathologist [facility] SARS-CoV-2 Rapid ID Not Detected Not Detected [facility] Specimen Swab - NASOPHARYNGEAL SWAB Narrative Performed At [place] [facility] COVID-19 Assay is an isothermal nucleic [facility] acid amplification test intended for the qualitative detection of nucleic acid from SARS-CoV-2 viral RNA in nasopharyngeal (THERMOSTAT MAKER) specimens. It is used under Emergency Use Authorization (EUA) by FDA. The limit of detection (LOD) of the assay is 125 Genome Equivalents/mL. A positive result is indicative of the presence of SARS-CoV-2 RNA. Clinical correlation with patient history and other diagnostic information is necessary to determine patient infection status. A negative (Not Detected) result does not preclude SARS-CoV-2 infection. In patients with clinical symptoms and other tests that are consistent with SARS-CoV-2 infection, negative results should be treated as presumptive negative and a new specimen should be tested with alternative PCR molecular test. Invalid: Please collect a new specimen for repeat patient testing if clinically indicated. Performing Organization Address City/[facility]/Zipcode Phone Number [facility] CLIA: [id number] [place] [address] [place] [address] documented in this encounter Visit Diagnoses Diagnosis 39 weeks gestation of - Primar y state, incidental Encounter for planned induction of labor Obesity (BMI 30-39.9) Obesity, unspecified Excessive weight gain during i n third trimester High-risk in third trimester Vacuum-assisted vaginal delivery History of pre-eclampsia Dizziness and giddiness documented in this encounter Administered Medications Medication Order MAR Action Action Date Dose Rate Site benzocaine-menthol (DERMOPLAST) Given 07/30/2020 6:11 PM TECHNOLOGIST DEVELOPMENT 20-0.5 % topical spray Topical, PRN, Starting Wed07/30/20 at 1619, Until Discontinued, Routine, Perineum discomfort docusate calcium (SURFAK) capsule 240 mg Given 08/01/2020 9:32 AM TECHNOLOGIST DEVELOPMENT 240 mg 240 mg, Oral, QDAILYPRN, Starting Wed07/30/20 at 1619, Until Discontinued, Routine, Constipation HYDROcodone-acetaminophen (NORCO 5) 5-325 Given 2020 4:15 AM TECHNOLOGIST DEVELOPMENT 1 tablet mg tablet 1 tablet 1 tablet, Oral, Q6HPRN, Starting Wed07/30/20 at 1619, Until Discontinued, Routine, Pain (scale 7-10) Given 07/31/2020 4:07 AM TECHNOLOGIST DEVELOPMENT 1 tablet Given 07/30/2020 8:11 PM TECHNOLOGIST DEVELOPMENT 1 tablet ibuprofen (IBU) tablet 600 mg Given 07/31/2020 3:16 PM TECHNOLOGIST DEVELOPMENT 600 mg 600 mg, Oral, Q6HPRN, Starting Wed07/30/20 at 1619, Until Discontinued, Routine, Pain (scale 4-6) Given 07/31/2020 7:26 AM TECHNOLOGIST DEVELOPMENT 600 mg Given 07/30/2020 6:11 PM TECHNOLOGIST DEVELOPMENT 600 mg LR 1000 mL + oxytocin 20 units IV New Bag 07/30/2020 4:23 PM TECHNOLOGIST DEVELOPMENT 125 mL/hr Solution at 125 mL/hr, IV Infusion, CONTINUOUS, Starting Wed07/30/20 at 1700, Until Discontinued, KEVIN oxytocin (PITOCIN) injection 20 Units Dose/Rate Verify 07/30/2020 3:20 PM TECHNOLOGIST DEVELOPMENT 20 Units, IV Piggyback, CONTINUOUS, Starting Wed07/30/20 at 1530, Until Discontinued, Routine vitamin w/FA (PRENATABS RX) Given 08/01/2020 9:[address] 1 tablet tablet 1 tablet 1 tablet, Oral, DAILY, First dose on Wed07/31/20 at 0900, Until Discontinued, Routine rho(D) immune globulin (RHOGAM) syringe 300 mcg 300 mcg, Intramuscular, ONCE, For 1 dose, Conditional, Routine witch Daniel (TUCKS) 50 % topical pad Given 08/01/2020 9:32 AM TECHNOLOGIST DEVELOPMENT Topical, Q4HPRN, Starting Wed07/30/20 at 1619, Until Discontinued, Routine, rectal/hemorrhoidal pain Medication Order MAR Action Action Date Dose Rate Site [id number] IV infusion 1,000 mL New Bag 07/30/2020 1:10 PM TECHNOLOGIST DEVELOPMENT 1,000 mL 125 mL/hr at 125 mL/hr, IV Infusion, CONTINUOUS, Starting Wed07/30/20 at 0445, Until Wed07/30/20 at 1619, Routine New Bag 07/30/2020 5:31 AM TECHNOLOGIST DEVELOPMENT 1,000 mL 125 mL/hr lidocaine 1% (PF) (XYLOCAINE) Given 07/30/2020 3:35 PM TECHNOLOGIST DEVELOPMENT 5 mL Diaper area injection 0.3 mL 0.3 mL, Infiltration, PRN - SEE INSTRUCTIONS, Starting Wed07/30/20 at 0433, Until Wed07/30/20 at 1619, Routine, Local anesthesia, For IV line placement only as a local anesthetic. LR 1000 mL + oxytocin Rate Change 07/30/2020 2:41 PM 16 jose-uni ts/min 48 mL/hr 20 units IV Solution TECHNOLOGIST DEVELOPMENT at 6-120 mL/hr, IV Infusion, TITRATE, Starting Wed07/30/20 at 0433, Until Wed07/30/20 at 1619, KEVIN Rate Change 07/30/2020 2:19 PM TECHNOLOGIST DEVELOPMENT 14 jose-units/min 42 mL/hr Rate Change 07/30/2020 12:12 PM TECHNOLOGIST DEVELOPMENT 12 jose-units/min 36 mL/hr documented in this encounter Additional Health Concerns Infection Onset Date Last Indicated Resolved Time COVID-19 Rule Out 07/30/2020 07/30/2020 07/30/2020 5: 12 AM TECHNOLOGIST DEVELOPMENT documented as of this encounter Insurance Payer Benefit Plan / Subscriber ID Effective Phone Address T formerly [facility] Group Dates DUC XAVIER [id number] 2020-Pres [address] Medic aid HEALTHCARE - HEALTHCARE ent [id number] MANAGED MEDICAID [place], [place]ICA[place] documented as of this encounter Advance Directives Name Relationship Healthcare Agent Relationship Co mmunication Lazaro [place] Spouse Health Care Agent [phone] ( Home) Manju Loredo Mother [facility] Health Agent
[2020-08-08 05:06] LABS: Absolute Lymphocytes (CBC) 1.6 K/uL (0.7-4.9); Basophils % 0.3 % (0-1.3); Hematocrit 30.7 % (36.0-45.0); Lymphocytes % 15.6 % (15.3-44.8); MPV 8.8 fL (7.6-11.3); RBC Red Blood Cell Count 3.74 M/uL (3.86-4.86)
[2020-08-08 05:36] LABS: ALT/SGPT 30 U/L (12-78); AST/SGOT 17 U/L (15-37); Albumin 2.8 g/dL (3.4-5.0); Alkaline Phosphatase 105 U/L (45-117); BUN Blood Urea Nitrogen 13 mg/dL (7-18); Bicarbonate 23 mmol/L (21-32); Bilirubin Direct < 0.1 mg/dL (0-0.2); Bilirubin Total 0.2 mg/dL (0.2-1.0); Glucose Level 97 mg/dL (74-106); Magnesium 2.2 mg/dL (1.8-2.4); NT PRO-BNP 509 pg/mL (<125); Potassium 3.5 mmol/L (3.5-5.1); Protein, Total 6.6 g/dL (6.4-8.2); Sodium Level 143 mmol/L (136-145); Troponin (Emerg Dept Use Only) < 0.02 ng/mL (0.0-0.045)
[2020-08-08 06:01] LABS: Urine Blood 3+ (NEG); Urine Glucose NEGATIVE (NEG); Urine Protein NEGATIVE (NEG); Urine Specific Gravity 1.015 (1.005-1.030)
--- NOTE | 2020-08-08 06:27 | EDPHYS ---
Physician Documentation [facility] Name: Brooklyn Nieves Age: 25 yrs Sex: Female : 1995 Arrival Date: 08/08/2020 Time: 04:34 Bed 5 Private MD: ED Physician Shahbaz Klein HPI: 08/08 05:02 This 25 yrs old Female presents to ER via Ambulatory with complaints of Chest rn Pain. 05:02 The patient or guardian reports chest pain that is located primarily in the substernal rn area. The pain does not radiate. Associated signs and symptoms: Pertinent positives: None. Pertinent negatives: abdominal pain, cough, diaphoresis, headache, palpitations, syncope. The chest pain is described as aching. Duration: The patient or guardian reports multiple episodes, that are intermittent. Modifying factors: The symptoms are alleviated by nothing. the symptoms are aggravated by nothing. Severity of pain: At its worst the pain was moderate in the emergency department the pain is unchanged. The patient has not experienced similar symptoms in the past. The patient has been recently seen by a physician:. Reports 6 days , uncomplicated vaginal delivery. 2 days of substernal chest pain, intermittent at first, but now constant for 1 day. Reports feels lightheaded. No fever/cough. NO abd pain. Reports feels like right leg more swollen than left leg at times. No recent trauma. . 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 - Social history:: Smoking status: . - Family history:: not pertinent. - Hospitalizations: : Patient was recently seen at. ROS: 05:02 Constitutional: Negative for fever, chills, and weight loss, Eyes: Negative for injury, rn pain, redness, and discharge, Neck: Negative for injury, pain, and swelling, Cardiovascular: Negative for palpitations Respiratory: Negative for cough, wheezing, and pleuritic chest pain, Abdomen/GI: Negative for abdominal pain, nausea, vomiting, diarrhea, and constipation, Back: Negative for injury and pain, : Negative for injury, bleeding, discharge, and swelling, MS/Extremity: Negative for injury and deformity, Skin: Negative for injury, rash, and discoloration, Neuro: Negative for headache, weakness, numbness, tingling, and seizure. Exam: 05:02 Constitutional: This is a well developed, well nourished patient who is awake, alert, rn and in no acute distress. Head/Face: Normocephalic, atraumatic. Eyes: No periorbital swelling Cardiovascular: Bradycardic, regular Respiratory: Mild tachypnea, no retractions Abdomen/GI: soft, non-tender, no RUQ tenderness Skin: Warm, dry MS/ Extremity: Pulses equal, no cyanosis. Neurovascular intact. Full, normal range of motion. Equal circumference. Neuro: Awake and alert, GCS 15 05:02 ECG was reviewed by the Attending Physician. Vital Signs: 04:48 BP 159 / 86; Pulse 46; Resp 21; Temp 98.4; Pulse Ox 100% ; Weight 92.99 kg; Height 5 ea ft. 3 in. (160.02 cm); 06:10 BP 149 / 78; Pulse 49; Resp 16; Pulse Ox 98% on R/A; rr5 07:00 BP 147 / 81; Pulse 53; Resp 19; Pulse Ox 100% ; bp 04:48 Body Mass Index 36.31 (92.99 kg, 160.02 cm) ea MDM: 04:36 Patient medically screened. rn 05:18 Differential diagnosis: acute pericarditis, anxiety, chest wall pain, costochondritis, rn gastritis, pericarditis, pleurisy, pneumothorax, pulmonary embolus. ED course: Ambulatory to bathroom without dyspnea or chest pain.. 05:51 ED course: No proteinuria in UA.. rn 06:23 ED course: CT shows bilateral pleural effusions. Neg for PE. . ED course: Will admit pt rn to Dr. Hewitt given , pleural effusions and chest pain, could be cardiomyopathy vs benign pleural effusions with pleurisy. Stable vitals. No ischemia on ecg. No oxygen requirement. . 06:53 Data reviewed: vital signs, nurses notes, lab test result(s), EKG, radiologic studies, rn CT scan, plain films, and as a result, I will admit patient. Counseling: I had a detailed discussion with the patient and/or guardian regarding: the historical points, exam findings, and any diagnostic results supporting the discharge/admit diagnosis, lab results, radiology results, the need for further work-up and treatment in the hospital. ED course: Patient already supplements , so will pump and dump for [address] scan. . 08/08 04:52 Order name: Basic Metabolic Panel; Complete Time: 05:43 rn 08/08 04:52 Order name: CBC with Diff; Complete Time: 05:43 rn 08/08 04:52 Order name: LFT's; Complete Time: 05:43 rn 08/08 04:52 Order name: Magnesium; Complete Time: 05:43 rn 08/08 04:52 Order name: NT PRO-BNP; Complete Time: 05:43 rn 08/08 04:52 Order name: Troponin (emerg Dept Use Only); Complete Time: 05:43 rn 08/08 05:43 Order name: Urine --Ancillary (enter results); Complete Time: 06:02 tt3 08/08 05:43 Order name: Urine Dipstick--Ancillary (enter results); Complete Time: 06:02 tt3 08/08 07:47 Order name: Comprehensive Metabolic Panel EDMS 08/08 07:47 Order name: Comprehensive Metabolic Panel; Complete Time: 05:52 EDID 08/08 04:52 Order name: XRAY Chest (1 view); Complete Time: 05:52 rn 08/08 04:52 Order name: EKG; Complete Time: 04:53 rn 08/08 04:52 Order name: Extrem Venous W Compression Anselmo US; Complete Time: 05:52 rn 08/08 04:59 Order name: CT Chest For PE Angio; Complete Time: 05:52 rn 08/08 07:44 Order name: Echo with Doppler EDMS 08/08 07:47 Order name: Magnesium EDMS 08/08 07:47 Order name: Magnesium; Complete Time: 05:52 EDMS 08/08 07:47 Order name: CONS Physician Consult EDMS 08/08 07:47 Order name: Heart Healthy EDMS 08/08 07:47 Order name: Troponin I; Complete Time: 05:52 EDMS 08/08 07:47 Order name: Troponin I; Complete Time: 05:52 EDID 08/08 08:28 Order name: COVID-19/FLU A+B; Complete Time: 05:52 EDMS 08/09 04:02 Order name: CBC with Automated Diff; Complete Time: 05:52 EDID 08/09 04:15 Order name: Phosphorus; Complete Time: 05:52 EDID 08/09 04:15 Order name: NT PRO-BNP; Complete Time: 05:52 EDMS 08/08 04:52 Order name: Cardiac monitoring; Complete Time: 04:55 rn 08/08 04:52 Order name: EKG - Nurse/Tech; Complete Time: 04:55 rn 08/08 04:52 Order name: IV Saline Lock; Complete Time: 04:55 rn 08/08 04:52 Order name: Labs collected and sent; Complete Time: 04:55 rn 08/08 04:52 Order name: O2 Per Protocol; Complete Time: 04:55 rn 08/08 04:52 Order name: O2 Sat Monitoring; Complete Time: 04:55 rn 08/08 04:57 Order name: Urine Dipstick-Ancillary (obtain specimen); Complete Time: 05:43 rn EC:02 Rate is 47 beats/min. Rhythm is regular. QRS [place] is Normal. AR interval is normal. QRS rn interval is normal. QT interval is normal. No Q waves. T waves are Normal. No ST changes noted. Clinical impression: Sinus bradycardia. Interpreted by me. Reviewed by me. Administered Medications: 07:07 Drug: Lasix 20 mg Route: IVP; Site: right antecubital; ea Disposition: 08/08/20 06:26 Hospitalization ordered by Marleny Hewitt for Inpatient Admission. Preliminary diagnosis are Chest pain, unspecified, Pleural effusion, not elsewhere classified, Bradycardia, unspecified. - Bed requested for Telemetry/MedSurg (Inpatient). - Status is Inpatient Admission. eb - Condition is Stable. - Problem is new. - Symptoms have improved. Signatures: Dispatcher [employer] EDID Shahbaz Klein MD MD rn Roszak, Josh, PA PA [id number] Hien Farias RN RN ea Peltier, Brian RN Johnna Woodard Ronaldo RN RN rv Corrections: (The following items were deleted from the chart) 04:58 04:54 D-Dimer ordered. EDID EDMS 06:37 06:23 ED course: Will admit pt to Dr. Hewitt given , pleural effusions and rn chest pain, could be cardiomyopathy. Stable vitals. No ischemia on ecg. No oxygen requirement. . rn 07: 06:52 CORONAVIRUS+MR.LAB.BRZ ordered. EDID EDMS 07:27 06:52 Influenza Screen (A \T\ B)+BA.LAB.BRZ ordered. EDID EDID 08:33 06:26 Hospitalization Ordered by Marleny Hewitt MD for Inpatient Admission. Preliminary bp diagnosis is Chest pain, unspecified; Pleural effusion, not elsewhere classified; Bradycardia, unspecified. Bed requested for Telemetry/MedSurg (Inpatient). Status is Inpatient Admission. Condition is Stable. Problem is new. Symptoms have improved. rn 08/09 08:20 08/08 08:33 08/08/2020 06:26 Hospitalization Ordered by Marleny eHwitt MD for Inpatient eb Admission. Preliminary diagnosis is Chest pain, unspecified; Pleural effusion, not elsewhere classified; Bradycardia, unspecified. Bed requested for [facility] ER HOLD. Status is Inpatient Admission. Condition is Stable. Problem is new. Symptoms have improved. bp 08/09 10:25 08:20 08/08/2020 06:26 Hospitalization Ordered by Marleny Hewitt MD for Inpatient eb Admission. Preliminary diagnosis is Chest pain, unspecified; Pleural effusion, not elsewhere classified; Bradycardia, unspecified. Bed requested for Telemetry/MedSurg (Inpatient). Status is Inpatient Admission. Condition is Stable. Problem is new. Symptoms have improved. eb
--- NOTE | 2020-08-08 06:27 | ER ---
Nurse's Notes [facility] Name: Brooklyn Nieves Age: 25 yrs Sex: Female : 1995 Arrival Date: 08/08/2020 Time: 04:34 Bed 5 Private MD: Diagnosis: Chest pain, unspecified;Pleural effusion, not elsewhere classified;Bradycardia, unspecified Presentation: 08/08 04:43 Ebola Screen: No symptoms or risks identified at this time. Onset of symptoms was ea August 08, 2020. 04:43 Chief complaint: Patient states: center chest pain started 2 days ago now it gets worse.rv 04:43 Coronavirus screen: Client denies travel out of the [place] in the last 14 days. rv 04:43 Method Of Arrival: Ambulatory rv 04:50 Coronavirus screen: At this time, the client does not indicate any symptoms associated ea with coronavirus-19. Initial Sepsis Screen: Does the patient meet any 2 criteria? No. Patient's initial sepsis screen is negative. Does the patient have a suspected source of infection? No. Patient's initial sepsis screen is negative. Risk Assessment: Do you want to hurt yourself or someone else? Patient reports no desire to harm self or others. 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 - Social history:: Smoking status: . - Family history:: not pertinent. - Hospitalizations: : Patient was recently seen at. Screenin:40 Abuse screen: Denies threats or abuse. Nutritional screening: No deficits noted. ea Tuberculosis screening: No symptoms or risk factors identified. Fall Risk None identified. Assessment: 04:52 General: Appears in no apparent distress. comfortable, Behavior is calm, cooperative, rv appropriate for age. Pain: Complains of pain in chest Pain does not radiate. Pain currently is 7 out of 10 on a pain scale. Quality of pain is described as aching, Pain began gradually. Neuro: Level of Consciousness is awake, alert, obeys commands, Oriented to person, place, time, situation. Cardiovascular: Reports chest pain, Capillary refill < 3 seconds Patient's skin is warm and dry. Respiratory: Airway is patent Respiratory effort is even, unlabored, Respiratory pattern is regular, symmetrical. GI: Patient currently denies abdominal pain. : No signs and/or symptoms were reported regarding the genitourinary system. EENT: No signs and/or symptoms were reported regarding the EENT system. Derm: Skin is intact, is healthy with good turgor, Skin temperature is warm. Musculoskeletal: Capillary refill < 3 seconds. 05:20 Reassessment: Patient and/or family updated on plan of care and expected duration. Pain ea level reassessed. Patient is alert, oriented x 3, equal unlabored respirations, skin warm/dry/pink. 06:00 Reassessment: Patient appears in no apparent distress at this time. Patient is alert, rr5 oriented x 3, equal unlabored respirations, skin warm/dry/pink. back from CT scan. 06:47 Reassessment: Patient appears in no apparent distress at this time. reassess by ED rr5 provider advised for admission agreed for the plan of care. 07:00 Reassessment: Patient appears in no apparent distress at this time. No changes from bp previously documented assessment. Patient and/or family updated on plan of care and expected duration. Pain level reassessed. Patient is alert, oriented x 3, equal unlabored respirations, skin warm/dry/pink. RECD REPORT FROM RYAN BROWNE. 25YO WF P/W CHEST PAIN AND BRADYCARDIA 6 DAYS POST-. ADMIT PENDING. 08:30 Reassessment: DR HEWITT AT B/S FOR ADMIT. PT MOVED TO ER HOLD. bp Vital Signs: 04:48 BP 159 / 86; Pulse 46; Resp 21; Temp 98.4; Pulse Ox 100% ; Weight 92.99 kg; Height 5 ea ft. 3 in. (160.02 cm); 06:10 BP 149 / 78; Pulse 49; Resp 16; Pulse Ox 98% on R/A; rr5 07:00 BP 147 / 81; Pulse 53; Resp 19; Pulse Ox 100% ; bp 04:48 Body Mass Index 36.31 (92.99 kg, 160.02 cm) ea ED Course: 04:34 Patient arrived in ED. bp1 04:35 Jonathan, Wilner, RN is Primary Nurse. rv 04:35 Shahbaz Klein MD is Attending Physician. rn 04:40 Patient has correct armband on for positive identification. electronic device monitor on. Pulse ea ox on. NIBP on. 04:41 Arm band placed on right wrist. Patient placed in an exam room, on a stretcher, on ea pulse oximetry. 04:45 Patient maintains SpO2 saturation greater than 95% on room air. ea 04:50 Triage completed. ea 04:54 No provider procedures requiring assistance completed. EKG done, by ED staff, reviewed rv by Shahbaz Klein MD. 04:54 Inserted saline lock: 20 gauge in right antecubital area, using aseptic technique. rv ,using aseptic technique. inserted by [facility] Blood collected. 05:00 Primary Nurse role handed off by Wilner Castillo RN rr5 05:00 Brennon Olson, RN is Primary Nurse. rr5 06:03 XRAY Chest (1 view) In Process Unspecified. EDMS 06:04 CT Chest For PE Angio In Process Unspecified. EDMS 06:26 Marleny Hewitt MD is Hospitalizing Provider. rn 06:44 Extrem Venous W Compression Anselmo US In Process Unspecified. EDMS 07:08 COVID swab sent to lab. Flu and/or RSV swab sent to lab. rr5 08:33 Patient admitted, IV remains in place. bp Administered Medications: 07:07 Drug: Lasix 20 mg Route: IVP; Site: right antecubital; ea Outcome: 06:26 Decision to Hospitalize by Provider. rn 08:34 Admitted to ER Hold. Please see [facility] for further documentation. bp 08:34 Condition: stable 08/09 10:25 Patient left the ED. eb Signatures: Dispatcher [employer] EDMS Shahbaz Klein MD MD rn Antunez, Elena, RN RN ea Peltier, Brian, RN RN Johnna Cardoza eb Wilner Castillo, RN PAVAN rv Bernnon Olson, RN RN rr5 Evelin Martinez bp1
--- NOTE | 2020-08-08 06:55 | RAD REPORT ---
EXAM DESCRIPTION: [place] Single View08/08/2020 6:03 am CLINICAL HISTORY: Chest pain COMPARISON: none FINDINGS: The lungs appear clear of acute infiltrate. The heart is normal size IMPRESSION: No acute abnormalities displayed
--- NOTE | 2020-08-08 07:07 | RAD REPORT ---
EXAM DESCRIPTION: USExtrem Venous W Compress Bil08/08/2020 6:38 am CLINICAL HISTORY: Leg swelling COMPARISON: none FINDINGS: The common femoral, superficial femoral, popliteal and posterior tibial veins bilaterally are compressible and demonstrate augmentation. Doppler demonstrates good flow. IMPRESSION: No evidence of deep venous thrombosis involving either lower extremity.
[2020-08-08] MEDS ORDERED: FUROSEMIDE 20 MG/ 2ML VIAL ONE (07:13)
[2020-08-08] MEDS ORDERED: ONDANSETRON 4 MG/2 ML VIAL IV PRN (07:43)
[2020-08-08 08:28] LABS: SARS-COV-2 RT PCR NEGATIVE (NEGATIVE)
--- NOTE | 2020-08-08 08:51 | P.HP ---
Certification for Inpatient Patient admitted to: Observation With expected LOS: <2 Midnights Patient will require the following post-hospital care: None Practitioner: I am a practitioner with admitting privileges, knowledge of patient current condition, hospital course, and medical plan of care. Services: Services provided to patient in accordance with Admission requirements found in Title 42 Section 412.3 of the Code of Federal Regulations Patient History Date of Service: 08/08/20 Reason for admission: Shortness of breath History of Present Illness: Patient is a 25-year-old female who came to the hospital with difficulty breathing. Patient just delivered a normal healthy baby 6 days ago. Afterwards she became more tachypneic and short of breath. Patient also was edematous. She noticed she has been edematous on and off during her . Her symptoms gradually worsened so she came to the hospital for further evaluation. She was found have bilateral pleural effusions on her CT scan. She is admitted to the hospital for echocardiogram. Allergies No Known Allergies Allergy (Unverified 08/08/20 06:53) - Past Medical/Surgical History Past Medical History: Patient denies medical history Past Surgical History: Patient denies surgical history - Family History Father Family History: Reviewed- Non-Contributory - Social History Smoking Status: Current every day smoker Alcohol use: No CD- Drugs: No Review of Systems 10-point ROS is otherwise unremarkable Physical Examination - Physical Exam General: Alert, In no apparent distress, Oriented x3 HEENT: Atraumatic, Normocephalic Neck: Supple, 2+ carotid pulse no bruit, JVD not distended, No Thyromegaly Respiratory: Crackles/rales Cardiovascular: Regular rate/rhythm, Normal S1 S2 Gastrointestinal: Normal bowel sounds, Hypoactive, Soft and benign, Non- distended Musculoskeletal: No clubbing, No contractures, Swelling Integumentary: No rashes, No breakdown, No significant lesion, No tenderness/swelling, No erythema Neurological: Normal gait, Normal speech, Normal strength at 5/5 x4 extr, Normal tone, Sensation intact, Cranial nerves 3-12 intact - Studies Laboratory Data (last 24 hrs) 08/08/20 04:52: WBC 10.40, Hgb 10.1 L, Hct 30.7 L, Plt Count 255 08/08/20 04:52: Sodium 143, Potassium 3.5, BUN 13, Creatinine 0.70, Glucose 97, Magnesium 2.2, Total Bilirubin 0.2, AST 17, ALT 30, Alkaline Phosphatase 105 Assessment & Plan - Problems (Diagnosis) (1) cardiomyopathy Current Visit: Yes Status: Acute - Plan 1. Echocardiogram if it has not been performed in the last 6 months 2. Cardiology consultation 3. Aggressive diuresis 4. Strict I's and O's 5. Repeat CXR 6. Daily weights 7. Education regarding diet and treatment of congestive heart failure - Advance Directives Does patient have a Living Will: No Does patient have a Durable POA for Healthcare: No
[2020-08-08 08:56] VITALS: BMI 36.3
[2020-08-08] MEDS: ASPIRIN EC 81 MG TAB PO SCH (09:00)
[2020-08-08] MEDS: FUROSEMIDE 40 MG/4 ML VIAL IV SCH ×2 (09:00→17:00)
[2020-08-08] MEDS: POTASSIUM 25 MEQ EFFERV TAB PO SCH (09:00)
[2020-08-08] MEDS: ENOXAPARIN 40 MG/0.4 ML SQ SCH (09:00)
[2020-08-08] MEDS ORDERED: ASPIRIN EC 81 MG TAB PO ONE (09:43)
[2020-08-08] MEDS ORDERED: FUROSEMIDE 40 MG TABLET ONE (09:43)
[2020-08-08] MEDS ORDERED: POTASSIUM 25 MEQ EFFERV TAB ONE (09:44)
[2020-08-08] MEDS ORDERED: ENOXAPARIN 40 MG/0.4 ML SQ ONE (09:44)
--- NOTE | 2020-08-08 11:47 | RAD REPORT ---
EXAM DESCRIPTION: CT - Chest For Pe Angio - 08/08/2020 6:18 am CLINICAL HISTORY: The patient is 25 years old and is Female; CHEST PAIN TECHNIQUE: Axial computed tomographic angiography images of the chest with intravenous contrast. S agittal and coronal reformatted images were created and reviewed. This CT exam was performed using one or more of the following dose reduction techniques: automated exposure control, adjustment of t he mA and/or kV according to patient size, and/or use of iterative reconstruction technique. MIP reconstructed images were created and reviewed. COMPARISON: No relevant prior studies available. FINDINGS: PULMONARY ARTERIES: There are no obvious filling defects identified within the pulmonary arteries to suggest pulmonary embolism. AORTA: No acute findings. No thoracic aortic aneurysm. LUNGS: The lungs are clear. PLEURAL SPACE: A moderate right and small left pleural effusion are present. No pneumothorax. HEART: The heart is enlarged. No significant pericardial effusion. No evidence of RV dysfunc tion. MEDIASTINUM: The tracheobronchial tree is widely patent. BONES/JOINTS: No acute fracture. No dislocation. SOFT TISSUES: Unremarkable. LYMPH NODES: Unremarkable. No enlarged lymph nodes. IMPRESSION: 1. No evidence of pulmonary embolism. 2. Moderate right and small left pleural effusions. Electronically signed by: Jeannie Craft MD 08/08/2020 6:11 AM CRAB BACKER Due to temporary technical issues with the PACS/Fluency reporting system, reports are being signed by the in house radiologist without review as a courtesy to ensure prompt reporting. The interpreting r adiologist is fully responsible for the content of the report.
[2020-08-08] MEDS: ACETAMINOPHEN 500 MG TAB PO PRN ×2 (14:59→18:42)
[2020-08-08] MEDS ORDERED: FUROSEMIDE 40 MG/4 ML VIAL ONE (18:30)
[2020-08-08] MEDS ORDERED: ACETAMINOPHEN 500 MG TAB ONE (18:57)
[2020-08-09] MEDS: FUROSEMIDE 40 MG/4 ML VIAL IV SCH ×2 (01:00→08:41)
[2020-08-09] MEDS: POTASSIUM 25 MEQ EFFERV TAB PO SCH ×2 (03:00→08:41)
[2020-08-09] MEDS ORDERED: POTASSIUM 25 MEQ EFFERV TAB ONE ×2 (03:53→08:08)
[2020-08-09] MEDS ORDERED: FUROSEMIDE 40 MG/4 ML VIAL ONE ×2 (03:53→08:08)
[2020-08-09 04:00] LABS: Absolute Lymphocytes (CBC) 1.9 K/uL (0.7-4.9); Basophils % 0.7 % (0-1.3); Hematocrit 33.1 % (36.0-45.0); Lymphocytes % 15.8 % (15.3-44.8); MPV 8.5 fL (7.6-11.3); RBC Red Blood Cell Count 4.06 M/uL (3.86-4.86)
[2020-08-09 04:15] LABS: ALT/SGPT 28 U/L (12-78); AST/SGOT 19 U/L (15-37); Albumin 2.7 g/dL (3.4-5.0); Alkaline Phosphatase 109 U/L (45-117); BUN Blood Urea Nitrogen 12 mg/dL (7-18); Bicarbonate 27 mmol/L (21-32); Bilirubin Total 0.3 mg/dL (0.2-1.0); Glucose Level 97 mg/dL (74-106); Magnesium 2.1 mg/dL (1.8-2.4); NT PRO-BNP 339 pg/mL (<125); Phosphorus 4.2 mg/dL (2.5-4.9); Potassium 3.5 mmol/L (3.5-5.1); Protein, Total 6.6 g/dL (6.4-8.2); Sodium Level 144 mmol/L (136-145)
[2020-08-09] MEDS: ACETAMINOPHEN 500 MG TAB PO PRN (04:17)
[2020-08-09] MEDS ORDERED: ACETAMINOPHEN 500 MG TAB ONE (04:30)
--- NOTE | 2020-08-09 07:51 | EKG ---
Test Date: 2020-08-08 Test Time: 04:45:03 [employer] Airline Pilot: RR MEASUREMENT RESULTS: Intervals: Rate: 47 AK: 132 QRSD: 80 QT: 436 QTc: 385 Wellman: P: -1 AK: 132 QRS: 40 T: 33 INTERPRETIVE STATEMENTS: Marked sinus bradycardia Abnormal ECG No previous ECG available for comparison Electronically Signed On 08-09-20 07:49:30 ANESTHESIOLOGIST ASSISTANT by Misbah Jaime
[2020-08-09] MEDS ORDERED: ASPIRIN EC 81 MG TAB PO ONE (08:07)
[2020-08-09] MEDS ORDERED: ENOXAPARIN 40 MG/0.4 ML SQ ONE (08:08)
[2020-08-09] MEDS: ASPIRIN EC 81 MG TAB PO SCH (08:41)
[2020-08-09 08:42] VITALS: BP 123/77
[2020-08-09] MEDS: ENOXAPARIN 40 MG/0.4 ML SQ SCH (08:42)
[2020-08-09 08:45] VITALS: TEMP 97.9
--- NOTE | 2020-08-09 08:48 | ECHO ---
HEIGHT: 5 ft 3 in WEIGHT: 205 lb 0 oz DATE OF STUDY: 08/08/[address]: Marleny Hewitt MD 2-DIMENSIONAL: YES M.MODE: YES DOPPLER: YES COLOR FLOW: YES TDS: PORTABLE: DEFINITY: BUBBLE STUDY: DIAGNOSIS: CARDIOMYOPATHY CARDIAC HISTORY: CATHERIZATION: NO SURGERY: NO PROSTHETIC VALVE: NO PACEMAKER: NO MEASUREMENTS (cm) DIASTOLIC (NORMALS) SYSTOLIC (NORMALS) IVSd 0.8 (0.6-1.2) LA Diam 2.9 (1.9-4.0) LVEF 63% LVIDd 5.2 (3.5-5.7) LVIDs 3.4 (2.0-3.5) %FS 34% LVPWd 0.7 (0.6-1.2) Ao Diam 2.5 (2.0-3.7) 2 DIMENSIONAL ASSESSMENT: RIGHT ATRIUM: NORMAL LEFT ATRIUM: NORMAL RIGHT VENTRICLE: NORMAL LEFT VENTRICLE: NORMAL TRICUSPID VALVE: NORMAL MITRAL VALVE: NORMAL PULMONIC VALVE: NORMAL AORTIC VALVE: NORMAL PERICARDIAL EFFUSION: NONE AORTIC ROOT: NORMAL LEFT VENTRICULAR WALL MOTION: NORMAL DOPPLER/COLOR FLOW: MILD TRICUSPID REGURGITATION COMMENTS: MILD TRICUSPID REGURGITATION. NORMAL RIGHT VENTRICULAR SYSTOLIC PRESSURE. NORMAL LEFT VENTRICULAR SIZE AND FUNCTION. NO WALL MOTION ABNORMALITY. NO EFFUSION. TECHNOLOGIST: SUPA YATES
--- NOTE | 2020-08-09 09:05 | P.DS ---
Discharge Date: 08/09/20 Disposition: ROUTINE DISCHARGE Discharge Condition: GOOD Reason for Admission: Shortness of breath - Problems (1) cardiomyopathy Status: Acute Brief History of Present Illness: Patient is a 25-year-old female who came to the hospital with difficulty breathing. Patient just delivered a normal healthy baby 6 days ago. Afterwards she became more tachypneic and short of breath. Patient also was edematous. She noticed she has been edematous on and off during her . Her symptoms gradually worsened so she came to the hospital for further evaluation. She was found have bilateral pleural effusions on her CT scan. She is admitted to the hospital for echocardiogram. Hospital Course: Patient's echocardiogram was unremarkable. Patient clinical status is improved. Patient was diuresed and is feeling better. At the time, patient is stable for discharge home. Vital Signs/Physical Exam: Temp Pulse Resp BP Pulse Ox 97.9 F 75 15 123/77 98 08/09/20 08:00 08/09/20 08:41 08/09/20 08:00 08/09/20 08:41 08/09/20 08:00 General: Alert, In no apparent distress, Oriented x3 Laboratory Data at Discharge: WBC 11.90 K/uL (4.3-10.9) H D 08/09/20 03:44 Hgb 10.6 g/dL (12.0-15.0) L 08/09/20 03:44 Hct 33.1 % (36.0-45.0) L 08/09/20 03:44 Plt Count 291 K/uL (152-406) 08/09/20 03:44 Sodium 144 mmol/L (136-145) 08/09/20 03:44 Potassium 3.5 mmol/L (3.5-5.1) 08/09/20 03:44 BUN 12 mg/dL (7-18) 08/09/20 03:44 Creatinine 0.77 mg/dL (0.55-1.3) 08/09/20 03:44 Glucose 97 mg/dL (74-106) 08/09/20 03:44 Phosphorus 4.2 mg/dL (2.5-4.9) 08/09/20 03:44 Magnesium 2.1 mg/dL (1.8-2.4) 08/09/20 03:44 Total Bilirubin 0.3 mg/dL (0.2-1.0) 08/09/20 03:44 AST 19 U/L (15-37) 08/09/20 03:44 ALT 28 U/L (12-78) 08/09/20 03:44 Alkaline Phosphatase 109 U/L (45-117) 08/09/20 03:44 Troponin I < 0.02 ng/mL (0.0-0.045) 08/08/20 17:33 Home Medications: Albuterol Inhaler [Ventolin Inhaler*] 2 puff IH Q6H PRN #1 hfa.aer.ad 08/09/20 Cefdinir [Omnicef] 300 mg PO BID #14 capsule 08/09/20 Furosemide [Lasix] 20 mg PO DAILY #30 tab 08/09/20 Potassium Chloride [K-Dur] 10 meq PO DAILY #30 tab.er.prt 08/09/20 New Medications: Potassium Chloride [K-Dur] 10 meq PO DAILY #30 tab.er.prt Furosemide [Lasix] 20 mg PO DAILY #30 tab Cefdinir [Omnicef] 300 mg PO BID #14 capsule Albuterol Inhaler [Ventolin Inhaler*] 2 puff IH Q6H PRN #1 hfa.aer.ad PRN Reason: Shortness Of Breath Physician Discharge Instructions: PROBLEM: (list out Acute Problems for the Current visit) GOAL: Clear understanding of disease process INSTRUCTIONS: OK TO DC IV AND DC HOME FOLLOW-UP WITH PRIMARY CARE PROVIDER IN 1-2 WEEKS FOLLOW-UP WITH CARDIOLOGY IN 1-2 WEEKS RETURN TO THE ER IF symptoms worsen CALL or TEXT DR. DAVE AT [phone] IF ANY QUESTIONS REGARDING HOSPITAL STAY. PLEASE CALL THE FLOOR AT [phone] IF ANY MEDICATION OR NURSING QUESTIONS. Diet: Low sodium Activity: Fall precautions IMMUNIZATION Influenza Vaccine Indicated: No Influenza Vaccine Given: Date Given: Pneumonia Vaccine Indicated: No Pneumonia Vaccine Given: Date Given: Patient Discharge Instructions: OK TO DC IV AND DC HOME. FOLLOW-UP WITH PRIMARY CARE PROVIDER IN 1-2 WEEKS. FOLLOW-UP WITH CARDIOLOGY IN 1-2 WEEKS. RETURN TO THE ER IF symptoms worsen. CALL or TEXT DR. DAVE AT [phone] IF ANY QUESTIONS REGARDING HOSPITAL STAY. PLEASE CALL THE FLOOR AT [phone] IF ANY MEDICATION OR NURSING QUESTIONS. Diet: Low sodium Activity: Fall precautions Followup: NONE,NONE [Primary Care Provider] - Time spent managing pt's care (in minutes): 30
[2020-08-09 10:37] VITALS: O2SAT 100
--- NOTE | 2020-08-10 00:49 | CON ---
Date of Consultation: 08/09/2020 Reason For Consultation: Possible cardiomyopathy. History Of Present Illness: Ms. Nieves is a 25-year-old young lady with history of preeclampsia with he r first delivery. She just had another baby recently. Came in with shortness of breath, pedal edema , was found to have bilateral pleural effusion on x-ray. cardiomyopathy was entertained. Echocardiogram, however, showed normal ejection fraction without any wall motion abnormalities. She is asymptomatic now and wanting to go home. She had a BNP that was 509 initially and came back to 3 39. She did receive some Lasix IV, which have helped tremendously. Past Medical History: Negative. Allergies: NONE. Medications: At home are none. Review of Systems: Negative. Social History: Negative. Family History: Noncontributory. Physical Examination: Vital Signs: Stable. She was afebrile. Sinus rhythm. HEENT: Negative. Neck: Supple. No bruit. Chest: Decreased breath sounds bilaterally. Cardiac: Normal. Abdomen: Negative. Extremities: Still show about 1+ edema. Diagnostic Data: As stated earlier. Impression And Plan: The patient's shortness of breath is probably secondary to bilateral pleural ef fusion. Her echocardiogram is normal. She does not have cardiomyopathy. She certainly c ould have had some preeclampsia or hypertension during her , which explains her pleural effu kelsea. I think she can go home, does not need to have any further cardiac workup. I think a low dose Lasix at least temporarily should be used. She should have a repeat chest x-ray in the next 2 to 4 weeks and follow up with her primary care and her [facility] in the near future. I will see her if she h as symptoms as an outpatient. JOSELYN/EVELINA Voice ID: [id number] Report ID: [id number]
== END 2020-08-09 10:25 | disposition home or self-care (01) ==
LOC: ER 04:31 → INTOOBSV 07:44 → ERHOLD 07:44
PROVIDERS: ADMIT Hospitalist; ATTEND Hospitalist
DX: O90.89 Other complications of the puerperium, not elsewhere classified (principal); J90 Pleural effusion, not elsewhere classified; J45.909 Unspecified asthma, uncomplicated; O99.893 Other specified diseases and conditions complicating puerperium; R00.1 Bradycardia, unspecified; O99.335 Smoking (tobacco) complicating the puerperium; Z20.822 Contact with and (suspected) exposure to COVID-19
CPT/HCPCS: 93005; 93306; 85025 ×2; 80048; 36415; 83735 ×2; 81025; 84100; 80076; 81003; 84484 ×3; 80053; 83880 ×2; 0240U; 71275; 71045; 93970; 96374; 99285; Q9967; J1940 ×4; J1650 ×2